=== PATIENT | female | born 1975 | race Two or more races ===

== ENCOUNTER 2020-08-03 19:37 | Emergency (ER) | payer MEDICAID, OTHER ==
[~2020-08-03] VITALS: Ht 170.2 cm; Wt 120.7 kg
--- NOTE | 2020-08-03 19:40 | NUR ---
PT JANAK FROM HOME C/O CHEST PAIN S/P PACEMAKER INSERTION ON 07/17/2020. PT STATES SHE HAS BEEN EXPERIENCING CHEST PAIN SINCE INSERTION, BUT WORSE TODAY. ALSO C/O WEAKNESS, NAUSEA, DIZZINESS. PT AAOX4. RESPIRATIONS EVEN AND UNLABORED. SKIN WARM AND INTACT. VITAL SIGNS STABLE. NO ACUTE DISTRESS NOTED AT THIS TIME. PLACED IN GOWN AND ON CONTINUOUS RN INTENSIVE CARE UNIT AND PULSE OX, WILL CONTINUE TO MONITOR
--- NOTE | 2020-08-03 19:50 | NUR ---
IV INITIATED RAC 18G. LABS DRAWN FROM SITE AND SENT TO LAB. IV INTACT AND PATENT, PLACED ON SALINE LOCK
[2020-08-03 20:02] LABS: BASOPHILS # (AUTO) 0.1 /CMM (0.0-0.2); EOSINOPHILS % (AUTO) 1.4 % (0.0-6.0); HEMATOCRIT 35 % (33-45); HEMOGLOBIN 11.6 g/dL (11.5-14.8); LYMPHOCYTES # (AUTO) 1.9 /CMM (0.8-4.8); LYMPHOCYTES % (AUTO) 23.1 % (20.0-44.0); MEAN CORPUSCULAR HGB CONC 33 g/dl (31.0-36.0); MEAN CORPUSCULAR VOLUME 94 fL (82-100); MONOCYTES # (AUTO) 0.6 /CMM (0.1-1.30); MONOCYTES % (AUTO) 6.9 % (2.0-12.0); NEUTROPHILS # (AUTO) 5.6 /CMM (1.8-8.9); NEUTROPHILS % (AUTO) 67.6 % (43.0-81.0); PLATELET COUNT (AUTO) 315 /CMM (150-450); RED BLOOD CELL COUNT(AUTO) 3.74 MIL/uL (4.0-5.2); WHITE BLOOD COUNT (AUTO) 8.3 K/uL (4.3-11.0)
--- NOTE | 2020-08-03 20:05 | NUR ---
RADIOLOGY AT BEDSIDE FOR CXR
[2020-08-03 20:15] LABS: CALCIUM, SERUM 9.1 mg/dL (8.5-10.1); CREATININE 0.7 mg/dL (0.6-1.3); POTASSIUM 3.4 mmol/L (3.5-5.1)
--- NOTE | 2020-08-03 20:38 | NUR ---
MINOR WATSON SPEAKIG WITH PT'S CRM CAMPAIGN MANAGER, DR. CLEVELAND
[2020-08-03] MEDS ORDERED: HYDROCODONE/APAP 5/325MG TABLET ONE (20:50)
--- NOTE | 2020-08-03 20:53 | NUR ---
PT STATES NORCO "MAKES ME FEEL SICK", REQUESTING FOR NON-NARCOTIC. MINOR LUNSFORD MADE AWARE
[2020-08-03] MEDS ORDERED: ACETAMINOPHEN ES 500 MG TABLET ONE (20:54)
[2020-08-03] MEDS ORDERED: HYDROCODONE/APAP 5/325MG TABLET PO ONE (21:00)
[2020-08-03] MEDS ORDERED: ACETAMINOPHEN 325 MG TABLET PO ONE (21:00)
[2020-08-03 21:20] VITALS: BP 144/85
--- NOTE | 2020-08-03 21:20 | NUR ---
Patient discharged to home in stable condition. Written and verbal after care instructions given. Patient verbalizes understanding of instruction.Pt ambulatory with a steady gait IV removed. Catheter intact and site benign. Pressure and 4x4 applied to site. No bleeding noted.
[2020-08-03] MEDS ORDERED: ACETAMINOPHEN ES 500 MG TABLET PO ONE (21:30)
== END 2020-08-03 21:36 | disposition home or self-care (01) ==
LOC: ER 19:39
DX: G89.18 Other acute postprocedural pain (principal); R07.89 Other chest pain; Z95.0 Presence of cardiac pacemaker
CPT/HCPCS: 36415; 71045-TC; 80048-TC; 84484-TC; 85025-TC

== ENCOUNTER 2021-03-01 20:32 | Emergency (ER) | payer MEDICAID ==
[~2021-03-01] VITALS: Ht 170.2 cm; Wt 95.3 kg
--- NOTE | 2021-03-01 20:46 | NUR ---
PATIENT BIBRA C/O UNWITNESSED GROUND FALL OUT OF BED. PATIENT A/OX1. ON TRACH 3LPM SATTING AT 98%. GTUBE PATENT AND INTACT. HAYS CATH INTACT. R ARM DISCOLORATION NOTED UPON ASSESSMENT. ATTACHED TO DIGITAL PROJECT COORDINATOR AND POX. SAFETY MEASURES INITIATIED. GIVEN BLANKET AND CALL LIGHT WITHIN REACH.
--- NOTE | 2021-03-01 20:50 | NUR ---
VERBAL ORDER 1MG OF ATIVAN IM
[2021-03-01] MEDS ORDERED: LORAZEPAM INJ 2 MG/ML VIAL ONE (20:52)
[2021-03-01] MEDS ORDERED: LORAZEPAM INJ 2 MG/ML VIAL IM ONE (21:00)
--- NOTE | 2021-03-01 21:10 | NUR ---
XRAY AT PATIENTS BEDSIDE
--- NOTE | 2021-03-01 21:33 | NUR ---
COPY MACHINE OPERATOR LEFT PATIENT'S BEDSIDE. XRAY DONE. RESULTS PENDING
--- NOTE | 2021-03-01 21:48 | NUR ---
PATIENT TAKEN TO RADIOLOGY FOR CT
--- NOTE | 2021-03-01 22:30 | NUR ---
GAVE REPORT TO LUZ BOWDEN AT [facility] FOR JOSH
[2021-03-01 22:31] VITALS: BP 150/89
--- NOTE | 2021-03-01 22:36 | NUR ---
SPOKE TO ERMA AT [facility] TO ARRANGE AMBULANCE TRANSPORT. TRIP #[id number]. EXPECTING CALL BACK REGARDING TRANSPORT INFORMATION.
--- NOTE | 2021-03-02 01:01 | NUR ---
SPOKE TO ERMA, STATED HE MADE A RESERVATION AT 10AM "YESTERDAY" ERMA MADEA NEW RESERVATION, TRIP NUMBER [id number] FOR TODAY. WILL CALL US BACK FOR ETA.
--- NOTE | 2021-03-02 01:57 | NUR ---
UPDATED ERMA FROM [facility] TO ARRANGE AMBULANCE TRANSPORT. AWAITING FOR AMBULANCE.
--- NOTE | 2021-03-02 02:03 | NUR ---
HELEN GARCIA [facility] GAVE ETA IS 90 MINUTES FOR AMBULANCE.
--- NOTE | 2021-03-02 03:12 | NUR ---
report given to ambulance team for heriberto. and transferring responsibilities.
--- NOTE | 2021-03-02 03:28 | NUR ---
PT TRANSFERED BACK TO FACILITY.
== END 2021-03-02 03:32 | disposition home or self-care (01) ==
LOC: ER 20:34
DX: S49.81XA Other specified injuries of right shoulder and upper arm, initial encounter (principal); I10 Essential (primary) hypertension; E78.5 Hyperlipidemia, unspecified; Z86.73 Personal history of transient ischemic attack (TIA), and cerebral infarction without residual deficits; Z95.0 Presence of cardiac pacemaker; W17.89XA Other fall from one level to another, initial encounter; Y93.89 Activity, other specified; Y92.89 Other specified places as the place of occurrence of the external cause; Y99.8 Other external cause status
CPT/HCPCS: 70450; 73030; 73070; 73100; 96372; 99284; J2060

== ENCOUNTER 2021-04-14 09:44 | Inpatient (IN) | payer MEDICAID ==
[~2021-04-14] VITALS: Ht 175.3 cm; Wt 92.1 kg
[2021-04-14] MEDS ORDERED: IV NS 0.9% 1,000 ML BAG IV ONE (10:00)
[2021-04-14] MEDS ORDERED: PIPERACILLIN /TAZOBACTAM 3.375 G in IV D5W 50 ML IV ONE (10:00)
[2021-04-14] MEDS ORDERED: ACETAMINOPHEN 650 MG/SUPP.RECT RC ONE ×2 (10:00→10:02)
[2021-04-14] MEDS ORDERED: VANCOMYCIN 1 GM in IV D5W 250 ML IV ONE (10:00)
--- NOTE | 2021-04-14 10:00 | NUR ---
BIBRA78 [facility]N SNF FOR NOTED FEVER AND TACHYCARDIA SINCE LAST NIGHT. FEBRILE MUSIC WRITER. PATIENT A/OX1, NON-VERBAL, PATIENT HOT TO TOUCH, TEMP SHOWS 103.3 RECTALLY. PATIENT PLACED ON THE SHRIMP PEELING MACHINE TENDER, HR RANGES FROM 118-122. DR. BRAGA AT BEDSIDE FOR EVAL.
--- NOTE | 2021-04-14 10:06 | NUR ---
MOVE SHEET SUBMITTED
--- NOTE | 2021-04-14 10:07 | NUR ---
IV LINE ESTABLISHED, BLOOD DRAWN AND SENT TO LAB. HAYS CATHETER FR 16 IN PLACED, URINE SENT TO LAB.
--- NOTE | 2021-04-14 10:08 | NUR ---
CALLED FOR TELE BED.
[2021-04-14] MEDS ORDERED: NA P133E RC (10:17)
[2021-04-14] MEDS ORDERED: BACL10TA GT (10:17)
[2021-04-14] MEDS ORDERED: NUT.237L31 GT (10:17)
[2021-04-14] MEDS ORDERED: FOLI0.4T6 GT (10:17)
[2021-04-14] MEDS ORDERED: LEVE100S GT (10:17)
[2021-04-14] MEDS ORDERED: SACC250C GT (10:17)
[2021-04-14] MEDS ORDERED: LEVA15HF4 IH (10:17)
[2021-04-14] MEDS ORDERED: DOCU50LI GT (10:17)
[2021-04-14] MEDS ORDERED: CYAN-51 GT (10:17)
[2021-04-14] MEDS ORDERED: ACET-2605 GT (10:17)
[2021-04-14] MEDS ORDERED: LORA-259 GT (10:17)
[2021-04-14] MEDS ORDERED: ATOR40TA GT (10:17)
[2021-04-14] MEDS ORDERED: SENN-261 GT (10:17)
[2021-04-14] MEDS ORDERED: VALP250S4 GT (10:17)
[2021-04-14] MEDS ORDERED: CRAN3875 GT (10:17)
[2021-04-14] MEDS ORDERED: ACET-868 GT (10:17)
[2021-04-14] MEDS ORDERED: BISA10SU11 RC (10:17)
[2021-04-14] MEDS ORDERED: ASPI-1169 GT (10:17)
[2021-04-14] MEDS ORDERED: MAGN400O6 GT (10:17)
[2021-04-14] MEDS ORDERED: MAGN400T26 GT (10:17)
[2021-04-14] MEDS ORDERED: METO25TA20 GT (10:17)
[2021-04-14] MEDS ORDERED: AMIN30LI27 GT (10:17)
[2021-04-14] MEDS ORDERED: CHLO473M5 MM (10:17)
[2021-04-14] MEDS ORDERED: FAMO20TA8 GT (10:17)
--- NOTE | 2021-04-14 10:17 | NUR ---
COVID SWAB DONE AND SENT TO LAB
--- NOTE | 2021-04-14 10:23 | NUR ---
PATIENT AWAKE, RESTLESS, NON-VERBAL, NO DISTRESS NOTED, ON TRACHE W/ T-PIECE.
[2021-04-14 10:27] LABS: BASOPHILS % (AUTO) 0.3 % (0.0-2.0); EOSINOPHILS % (AUTO) 1.3 % (0.0-6.0); HEMATOCRIT 26 % (33-45); LYMPHOCYTES # (AUTO) 0.1 K/uL (0.8-4.8); LYMPHOCYTES % (AUTO) 1.3 % (20.0-44.0); MEAN CORPUSCULAR HGB CONC 34 g/dl (31.0-36.0); MEAN CORPUSCULAR VOLUME 92 fL (82-100); MONOCYTES # (AUTO) 0.3 K/uL (0.1-1.30); MONOCYTES % (AUTO) 3.1 % (2.0-12.0); NEUTROPHILS # (AUTO) 10.1 K/uL (1.8-8.9); PLATELET COUNT (AUTO) 211 K/uL (150-450); RED BLOOD CELL COUNT(AUTO) 2.84 MIL/uL (4.0-5.2); WHITE BLOOD COUNT (AUTO) 10.7 K/uL (4.3-11.0)
[2021-04-14 10:49] LABS: ALANINE AMINOTRANSFERASE 32 U/L (12-78); ALBUMIN 1.8 g/dL (3.4-5.0); ALKALINE PHOSPHATASE 90 U/L (46-116); ASPARTATE AMINOTRANSFERASE 42 U/L (15-37); BILIRUBIN,DIRECT 0.2 mg/dL (0.0-0.2); BILIRUBIN,TOTAL 0.6 mg/dL (0.2-1.0); CALCIUM, SERUM 8.9 mg/dL (8.5-10.1); CARBON DIOXIDE 26 mmol/L (21-32); CHLORIDE 99 mmol/L (98-107); CREATININE 1.7 mg/dL (0.6-1.3); GLUCOSE 121 mg/dL (74-106); POTASSIUM 4.1 mmol/L (3.5-5.1); SODIUM SERUM 138 mmol/L (136-145); TOTAL PROTEIN, SERUM 7.3 g/dL (6.4-8.2); UREA NITROGEN, BLOOD 73 mg/dL (7-18)
[2021-04-14 12:15] LABS: BILIRUBIN,URINE NEGATIVE (NEGATIVE); COLOR,URINE YELLOW (YELLOW); LEUKOCYTE ESTERASE ,URINE MODERATE (NEGATIVE); NITRITE, URINE NEGATIVE (NEGATIVE); PROTEIN,URINE 100 mg/dl (NEGATIVE); UGLUCOSE NEGATIVE (NEGATIVE); UROBILINOGEN,URINE 0.2 EU/dL (0.2)
[2021-04-14 12:28] LABS: BACTERIA,URINE Many /HPF (None Seen); SQUAMOUS EPITHELIAL CELL,UR Few /HPF (None Seen)
[2021-04-14 12:29] LABS: TRIPLE PHOSPHATE CRYSTAL,UR Few /HPF (None Seen); URINE AMORPHOUS URATE Moderate /HPF (None Seen)
--- NOTE | 2021-04-14 12:35 | NUR ---
CALLED DR. PIZARRO [phone] TO CALL US BACK.
[2021-04-14] MEDS ORDERED: MAGNESIUM HYDROXIDE 30 ML UDC GT PRN (13:30)
[2021-04-14] MEDS ORDERED: BISACODYL SUPP (10 MG) 10 MG/SUPP.RECT SUPP.RECT RC PRN (13:30)
[2021-04-14] MEDS ORDERED: NA PHOS,M-B/NA PHOS,DI-BA 1 EA ENEMA RC PRN (13:30)
[2021-04-14] MEDS ORDERED: GLUCERNA 1.5 1,000 ML BOTTLE GT SCH (13:30)
[2021-04-14] MEDS ORDERED: BACLOFEN (10 MG) 10 MG TABLET GT PRN (13:30)
--- NOTE | 2021-04-14 15:17 | NUR ---
BED 118-1
--- NOTE | 2021-04-14 15:22 | NUR ---
REPORT GIVEN TO LIAN ESCOBAR.
[2021-04-14 16:00] VITALS: BP 110/55
[2021-04-14] MEDS ORDERED: ONDANSETRON HCL/PF 4 MG/2 ML VIAL IVP PRN (16:00)
--- NOTE | 2021-04-14 16:10 | NUR ---
PATIENT TRANSFERRED TO ROOM 118-1 VIA ACLS PROTOCOL, PT NOTED TO HAVE HEMATURIA ON THE HAYS BAG, ENDORSED TO CHRISTIAN ESCOBAR.
--- NOTE | 2021-04-14 16:40 | NUR ---
ELEVATOR CONSTRUCTOR HELPERWATER PROOFER NOTES PATIENT RECEIVED FROM ER VIA [place]. PATIENT NON-VERBAL RESPONDS TO SLIGHT PAIN. PATIENT STARTED TO GET AGITATED AND STARTED TO PULL T PIECE, AND BEGAN SCREAMING, INFORMED DR PIZARRO, ORDERED SOFT WRIST RESTRAINTS, ONLY APPLIED TO LEFT ARM DUE TO RIGHT ARM BEING CONTRACTED/RIGID. NOTED G-TUBE SITE CLAMPED NO DRAINAGE PRESENT. IV ACCESS INTACT AND PATENT ON RIGHT HAND 20 GAUGE, AND RIGHT FOOT 20 GAUGE. SKIN WARM AND DRY TO TOUCH, NOTED MULTIPLE RASHES, AND SACRUM REDNESS. HAYS CATHETER INSERTED IN ER, NOTED HEMATURIA, INFORMED DR PIZARRO, NO NEW ORDERS MADE. PATIENT PRESENTS WITH NO PAIN OR DISCOMFORT. SAFETY PRECAUTIONS IMPLEMENTED WITH BED LOCKED, BED ALARM ON, BILATERAL SIDE RAILS UP, BED IN THE LOWEST POSITION, AND CALL LIGHT WITHIN EASY REACH. WILL CONTINUE TO MONITOR PATIENT.
[2021-04-14] MEDS ORDERED: HALOPERIDOL LACTATE INJ 5 MG/ML VIAL IM PRN (17:00)
[2021-04-14] MEDS: ACIDOPHILUS/BULGARICUS 1 EACH TAB.CHEW GT SCH (17:31)
[2021-04-14] MEDS: IV NS 0.9% 1,000 ML IV PRN (17:32)
[2021-04-14] MEDS: ZOSYN IVPB 3.375 G in IV D5W 50ml IV SCH ×2 (17:32→23:02)
--- NOTE | 2021-04-14 18:28 | NUR ---
SUGAR DRIER NOTES PATIENT IN BED RESTING, NON-VERBAL. PATIENT T-PIECE IN PLACE 5 LITERS WITH NO SIGNS OF RESPIRATORY DISTRESS. PATIENT ON LUNCH COUNTER MANAGER 125. PATIENT PRESENTS WITH NO SINS OF DISCOMFORT. SOFT WRIST RESTRAINT IN PLACE ON LEFT ARM DUE TO AGITATION AND REMOVING LINES, PULLING ON TUBING. MET ALL OF PATIENT'S NEEDS. G-TUBE FEEDING INTACT. IV ACCESS INTACT AND PATENT CURRENTLY INFUSING IV FLUIDS AT 100ML/HR. HAYS CATHETER IN PLACE HEMATURIA STILL PRESENT. SAFETY PRECAUTIONS IMPLEMENTED WITH BED LOCKED, BED ALARM ON, BILATERAL SIDE RAILS UP, BED IN THE LOWEST POSITION, AND CALL LIGHT WITHIN EASY REACH. WILL ENDORSE PLAN OF CARE TO UPCOMING RN.
--- NOTE | 2021-04-14 20:00 | NUR ---
RETAIL ZONE SPECIALIST NOTE PT IN BED AWAKE. EASILY GET IRRITATED. SCREAMING LOUD AT TIMES. PT ON TPC 5L O2 NO SOB, NO DISTRESS OR DISCOMFORT NOTED. NO S/S PAIN NOTED. ON TELE ST HR 120'S. PT HAS RESTRAINTS ON LT WRIST ONLY. TRYING TO PULL THE TRACH AND TUBINGS. F/C INTACT AND PATENT, PT IS HAVING HEMATURIA. SIDE RAILS UP X 3 AND CALL LIGHT WITHIN REACH. CONTINUE TO MONITOR HER.
[2021-04-14] MEDS ORDERED: ENOXAPARIN SODIUM 40 MG/0.4 ML DISP.SYRIN SQ SCH (21:00)
[2021-04-14] MEDS: SENNOSIDES 8.6 MG TABLET GT SCH (23:01)
[2021-04-14] MEDS: LEVETIRACETAM SOL (5 ML) 100 MG/ML UDC GT SCH (23:01)
[2021-04-14] MEDS: DOCUSATE SODIUM LIQ 100 MG/10 ML UDC GT SCH (23:01)
[2021-04-14] MEDS: ATORVASTATIN 40 MG TABLET GT SCH (23:02)
[2021-04-14] MEDS: FAMOTIDINE (20 MG) 20 MG TABLET GT SCH (23:02)
[2021-04-14] MEDS: METOPROLOL TARTRATE 25 MG TABLET GT SCH (23:02)
[2021-04-14] MEDS: VALPROIC ACID 250 MG/5 ML UDC GT SCH (23:04)
[2021-04-14] MEDS: LORAZEPAM 0.5 MG TABLET PO PRN (23:10)
[2021-04-15] MEDS: ACETAMINOPHEN 325 MG TABLET PO PRN ×2 (00:59→20:16)
--- NOTE | 2021-04-15 04:00 | NUR ---
MECHANICAL SHOVEL OPERATOR NOTE INFORMED DR PIZARRO REGARDING BLOOD CX RESULT GRAM NEGATIVE RODS, NO NEW ORDER GIVEN. ALSO INFORMED THE MD THAT PT IS ON ASPIRIN AND LOVENOX AND STILL WITH HEMATURIA. MD GAVE NEW ORDER TO DC THOSE MEDS. ORDER NOTED AND CARRIED OUT.
[2021-04-15] MEDS: ZOSYN IVPB 3.375 G in IV D5W 50ml IV SCH ×4 (04:11→22:14)
[2021-04-15] MEDS: VALPROIC ACID 250 MG/5 ML UDC GT SCH ×3 (04:13→20:14)
[2021-04-15] MEDS: METOPROLOL TARTRATE 25 MG TABLET GT SCH ×3 (04:13→20:15)
--- NOTE | 2021-04-15 07:14 | NUR ---
BATTERY TESTER AND REPAIRER NOTE PT IN BED AWAKE. NO DISTRESS OR DISCOMFORT NOTED. NO S/S OF PAIN NOTED. NO CHANGE IN CONDITION. NS INFUSING AT 100 ML/HR, NO S/S OF INFILTRATION NOTED. KEPT HER DRY AND CLEAN. LT WRIST RESTRAINT ON. ALL NEEDS ATTENDED. SIDE RAILS UP X 2 AND CALL LIGHT WITHIN REACH. ENDORSE TO DAY SHIFT NURSE FOR CONTINUE TO CARE.
[2021-04-15 07:27] LABS: BASOPHILS % (AUTO) 0.4 % (0.0-2.0); EOSINOPHILS % (AUTO) 1.2 % (0.0-6.0); HEMATOCRIT 23 % (33-45); HEMOGLOBIN 7.9 g/dL (11.5-14.8); LYMPHOCYTES # (AUTO) 0.6 K/uL (0.8-4.8); LYMPHOCYTES % (AUTO) 5.7 % (20.0-44.0); MEAN CORPUSCULAR HGB CONC 34 g/dl (31.0-36.0); MEAN CORPUSCULAR VOLUME 94 fL (82-100); MONOCYTES # (AUTO) 0.6 K/uL (0.1-1.30); MONOCYTES % (AUTO) 5.4 % (2.0-12.0); NEUTROPHILS # (AUTO) 9.5 K/uL (1.8-8.9); NEUTROPHILS % (AUTO) 87.3 % (43.0-81.0); PLATELET COUNT (AUTO) 167 K/uL (150-450); RED BLOOD CELL COUNT(AUTO) 2.48 MIL/uL (4.0-5.2); WHITE BLOOD COUNT (AUTO) 10.9 K/uL (4.3-11.0)
[2021-04-15 07:43] LABS: CALCIUM, SERUM 8.4 mg/dL (8.5-10.1); CREATININE 1.3 mg/dL (0.6-1.3); MAGNESIUM 2.6 mg/dL (1.8-2.4); POTASSIUM 3.3 mmol/L (3.5-5.1)
--- NOTE | 2021-04-15 07:47 | NUR ---
RN OPENING NOTES; RECEIVED PT IN BED IN SUPINE POS. A/OX1, NO SOB NOTED. NO S/S OF PAIN EVIDENT BY FACIAL EXPRESSION. NS INFUSING AT 100 ML/HR, IV ACCESS PATENT W/NO SIGNS OF INFILTRATION. LT WRIST RESTRAINT ON. ALL NEEDS ATTENDED. SIDE RAILS UP X 2 AND CALL LIGHT WITHIN REACH. WILL CONTINUE TO MONITOR.
[2021-04-15] MEDS: LEVETIRACETAM SOL (5 ML) 100 MG/ML UDC GT SCH ×2 (08:17→20:14)
[2021-04-15] MEDS: FOLIC ACID 1 MG TABLET GT SCH (08:17)
[2021-04-15] MEDS ORDERED: ASPIRIN 81 MG TAB.CHEW GT SCH (09:00)
[2021-04-15] MEDS: LORAZEPAM 0.5 MG TABLET PO PRN (09:56)
[2021-04-15] MEDS ORDERED: POTASSIUM CHLORIDE 20 MEQ POWDER PACKET GT SCH (10:00)
[2021-04-15] MEDS: ENOXAPARIN SODIUM 40 MG/0.4 ML DISP.SYRIN SQ SCH (10:30)
--- NOTE | 2021-04-15 10:37 | NUR ---
WOUND CARE CONSULT: REVIEWED CHART, NURSING DOCUMENTATION AND PHOTOS WHICH INDICATE SACRAL SCARRING, DRY SCAB TO RT ANKLE AREA AND SOME RASHES TO BUTTOCKS, PRESENT ON ADMISSION. RECOMMENDATIONS MADE FOR SKIN PROTECTION. DISCUSSED WITH NURSING STAFF. IN AGREEMENT WITH PLAN OF CARE. Addendum: 04/15/21 at 1040 by KIRILL ALTAMIRANO WNDNU ISOFLEX LOW AIRLOSS BED TO BE PLACED WHEN AVAILABLE.
--- NOTE | 2021-04-15 10:37 | NUR ---
RN NOTES; PT HAS HEMATURIA, MD AWARE. LOVENOX NOT GIVEN. WILL CONTINUE TO MONITOR.
[2021-04-15] MEDS: IV NS 0.9% 1,000 ML IV PRN ×2 (10:43→19:11)
[2021-04-15] MEDS ORDERED: Z GUARD REMEDY 2 OZ OINT TP PRN (11:00)
[2021-04-15] MEDS: Z GUARD REMEDY 2 OZ OINT TP SCH (11:00)
--- NOTE | 2021-04-15 11:58 | NUR ---
RN NOTES; Z GUARD NOT GIVEN. F/U WITH PHARMACY X3. MEDICATION HAS NOT BEEN DELIVERED.
--- NOTE | 2021-04-15 16:19 | NUR ---
RN NOTES; PT UNCOOPERATIVE, PT ATTEMPTING TO PULL LIFE SUSTAINING DEVICE. MD MADE AWARE. ATTEMPTED TO EDUCATE AND REDIRECTED PT SEVERAL TIMES BUT NO AVAIL. WILL CONTINUE TO MONITOR AND ENDORSE TO PSYCHIATRIC SOCIAL WORKER RN.
[2021-04-15] MEDS: CLOTRIMAZOLE 1% 15 GM TUBE TP SCH (16:49)
[2021-04-15] MEDS: ACIDOPHILUS/BULGARICUS 1 EACH TAB.CHEW GT SCH (17:01)
--- NOTE | 2021-04-15 18:06 | NUR ---
RN CLOSING NOTES; PT IN BED IN SUPINE POS. A/OX1, NO SOB NOTED. PT REPOSITIONED Q2H. NS INFUSING AT 100 ML/HR, IV ACCESS PATENT W/NO SIGNS OF INFILTRATION, NEW BAG HUNG. LT WRIST RESTRAINT ON, ADN WAS RENEWED AT 4:20P. ALL MEDICATIONS GIVEN AND WELL TOLERATED. ALL NEEDS ATTENDED. SIDE RAILS UP X 2 AND CALL LIGHT WITHIN REACH. . ENDORSE TO WINDSHIELD INSTALLER RN.
[2021-04-15] MEDS: LORAZEPAM INJ 2 MG/ML VIAL IVP PRN (18:17)
--- NOTE | 2021-04-15 19:40 | NUR ---
TELE1 RN NOTES RECEIVED ON BED SCREAMING,BREATHING EASY,NO SOB,ON T-PIECE AT 5L O2,O2 SAT 92%.ON LEFT ARM SOFT RESTRAINTS,RIGHT ARM ON RELEASED STATUS.WITH HAYS CATH IN PLACE DRAINING TEA COLORED URINE.WITH GT FEEDING OF GLUCERNA AT 60ML/HR RATE,IN PROGRESS VIA FEEDING PUMP.HOB ELEVATED FOR ASPIRATION.NO RESIDUAL VOLUME NOTED.WITH SALINE LOCK RIGHT HAND INTACT AND PATENT,LEFT FOOT SALINE LOCK INTACT AND PATENT.WILL CONTINUE TO MONITOR STATUS.
[2021-04-15] MEDS: DOCUSATE SODIUM LIQ 100 MG/10 ML UDC GT SCH (22:00)
[2021-04-15] MEDS: SENNOSIDES 8.6 MG TABLET GT SCH (22:00)
[2021-04-15] MEDS: FAMOTIDINE (20 MG) 20 MG TABLET GT SCH (22:12)
[2021-04-15] MEDS: ATORVASTATIN 40 MG TABLET GT SCH (22:12)
[2021-04-16] VITALS: BP 129/70
[2021-04-16] MEDS: LORAZEPAM INJ 2 MG/ML VIAL IVP PRN (03:22)
--- NOTE | 2021-04-16 03:22 | NUR ---
TELE1 RN NOTES SCREAMING,RESTLESS,ATIVAN 0.5MG IV GIVEN ORDERED.
[2021-04-16 04:00] VITALS: BP 137/72
--- NOTE | 2021-04-16 04:00 | NUR ---
RE ETCHER NOTES MORNING CARE RENDERED,TOLERATED WELL.
[2021-04-16] MEDS: ZOSYN IVPB 3.375 G in IV D5W 50ml IV SCH ×2 (04:08→11:09)
[2021-04-16] MEDS: VALPROIC ACID 250 MG/5 ML UDC GT SCH ×3 (04:11→20:13)
[2021-04-16] MEDS: METOPROLOL TARTRATE 25 MG TABLET GT SCH ×3 (04:18→20:14)
--- NOTE | 2021-04-16 06:29 | NUR ---
SWIMMING COACH OR INSTRUCTOR NOTES CALM AND QUIET THIS TIME,GT FEEDING HOLD AT 0500,WILL RESUME AT 0900,NO RESIDUAL VOLUME NOTED.REPOSITIONED PER PROTOCOL.SOFT RESTRAINTS IN USED ON LEFT WRIST,WITH GOOD BLOOD CIRCULATION NOTED.IN NO ACUTE DISTRESS.WILL ENDORSE TO DAY NURSE FOR JOSH.
[2021-04-16 07:27] LABS: BASOPHILS % (AUTO) 0.3 % (0.0-2.0); EOSINOPHILS % (AUTO) 1.1 % (0.0-6.0); HEMATOCRIT 23 % (33-45); HEMOGLOBIN 7.8 g/dL (11.5-14.8); LYMPHOCYTES # (AUTO) 0.9 K/uL (0.8-4.8); LYMPHOCYTES % (AUTO) 7.1 % (20.0-44.0); MEAN CORPUSCULAR HGB CONC 33 g/dl (31.0-36.0); MEAN CORPUSCULAR VOLUME 95 fL (82-100); MONOCYTES % (AUTO) 8.3 % (2.0-12.0); NEUTROPHILS % (AUTO) 83.2 % (43.0-81.0); PLATELET COUNT (AUTO) 200 K/uL (150-450); RED BLOOD CELL COUNT(AUTO) 2.48 MIL/uL (4.0-5.2)
--- NOTE | 2021-04-16 07:59 | NUR ---
RN NOTES RECEIVED PATIENT IN BED SUPINE POSITION - MOANING AND SCREAMING TRYING TO TOSS AND TURN, HELPED TO REPOSITION AND PROVIDE COMFORT, SOFT RESTRAINTS INTACT ON LEFT WRIST, BLOOD CIRCULATION INTACT AND ADEQUATE < 3 SECONDS ON LEFT INDEX FINGER NOTED, NO SOB, NO ACUTE DISTRESS. WILL CONTINUE TO ASSESS AND MEET NEEDS IN A TIMELY MANNER, ALL SAFETY PRECAUTIONS IN PLACE, BED LOW TO FLOOR, CALL LIGHT IN REACH, BRAKES ON BED WHEELS APPLIED AND LOCKED.
[2021-04-16 08:03] LABS: CALCIUM, SERUM 8.5 mg/dL (8.5-10.1); CREATININE 1.1 mg/dL (0.6-1.3); MAGNESIUM 2.4 mg/dL (1.8-2.4)
[2021-04-16] MEDS: Z GUARD REMEDY 2 OZ OINT TP SCH (08:04)
[2021-04-16] MEDS: FOLIC ACID 1 MG TABLET GT SCH (08:05)
[2021-04-16] MEDS: CLOTRIMAZOLE 1% 15 GM TUBE TP SCH ×2 (08:05→17:41)
[2021-04-16] MEDS: LEVETIRACETAM SOL (5 ML) 100 MG/ML UDC GT SCH ×2 (08:05→20:13)
[2021-04-16] MEDS: ENOXAPARIN SODIUM 40 MG/0.4 ML DISP.SYRIN SQ SCH (08:21)
[2021-04-16] MEDS ORDERED: MEROPENEM 500 MG in IV NS 0.9% 50 ML IV SCH (13:00)
[2021-04-16] MEDS: MEROPENEM 1 G in IV NS 0.9% 100 ML IV SCH ×2 (13:53→20:14)
[2021-04-16] MEDS: ACIDOPHILUS/BULGARICUS 1 EACH TAB.CHEW GT SCH (17:42)
[2021-04-16 20:00] VITALS: BP 134/71
--- NOTE | 2021-04-16 20:00 | NUR ---
BUSINESS PROCESS ENGINEER NOTE PT IN BED AWAKE.NON VERBAL SCREAMS AT TIMES ,V/S STABLE FEBRILE 102 ,TYLENOL GIVEN ORDERED COOLING MEASURES APPLIED .ALL DUE MEDS GIVEN ORDERED ,NO ASE NOTED . NO SOB NO DISTRESS NOTED . NO S/S OF PAIN NOTED. IVF OF D5W INFUSING AT 100 ML/HR, NO S/S OF INFILTRATION NOTED. KEPT HER DRY AND CLEAN. BILATERAL SOFT WRIST RESTRAINT TO PREVENT FROM PULLING INVASIVE TUBING .WITH HAYS CATHETER INTACT AND PATENT DRAINING WITH DEVANTE YELLOW URINE OUTPUT. NO HEMATURIA NOTED . ALL NEEDS ATTENDED TOO SIDE RAILS UP X 2 AND CALL LIGHT WITHIN REACH. WILL CONTINUE TO MONITOR PTS.
[2021-04-16] MEDS: ACETAMINOPHEN 325 MG TABLET PO PRN (20:16)
[2021-04-16] MEDS: IV D5W 1,000 ML IV PRN (20:29)
[2021-04-16] MEDS: GLUCERNA 1.2 1,000 ML BOTTLE GT PRN (20:37)
[2021-04-16] MEDS: ATORVASTATIN 40 MG TABLET GT SCH (21:04)
[2021-04-16] MEDS: DOCUSATE SODIUM LIQ 100 MG/10 ML UDC GT SCH (21:04)
[2021-04-16] MEDS: SENNOSIDES 8.6 MG TABLET GT SCH (21:05)
[2021-04-16] MEDS: FAMOTIDINE (20 MG) 20 MG TABLET GT SCH (21:05)
[2021-04-16 22:00] VITALS: BP 129/72
[2021-04-17] VITALS: BP 129/53
[2021-04-17] MEDS: LORAZEPAM INJ 2 MG/ML VIAL IVP PRN (03:25)
[2021-04-17] MEDS: GLUCERNA 1.2 1,000 ML BOTTLE GT PRN (03:48)
[2021-04-17 04:00] VITALS: BP 131/61
[2021-04-17] MEDS: VALPROIC ACID 250 MG/5 ML UDC GT SCH ×3 (04:04→20:05)
[2021-04-17] MEDS: MEROPENEM 1 G in IV NS 0.9% 100 ML IV SCH ×3 (04:05→20:05)
[2021-04-17] MEDS: METOPROLOL TARTRATE 25 MG TABLET GT SCH ×3 (04:11→20:06)
--- NOTE | 2021-04-17 05:50 | NUR ---
RN NOTE PATIENT AWAKE IN BED, NONVERBAL REMAINS ON TPIECE AT 5 LITERS ON IV ATB NO ASE NOTED, IVF OF D5W AT 100CC/HR INFUSING WELL. BREATHING EVEN AND UNLABORED, ALL NEEDS ATTENDED TOO , WILL ENDORSED TO RN DAY SHIFT FOR CONTINUITY OF CARE.
[2021-04-17 08:00] VITALS: BP 127/67
[2021-04-17 08:01] LABS: CALCIUM, SERUM 8.2 mg/dL (8.5-10.1); MAGNESIUM 2.4 mg/dL (1.8-2.4); POTASSIUM 4.4 mmol/L (3.5-5.1)
[2021-04-17] MEDS: LEVETIRACETAM SOL (5 ML) 100 MG/ML UDC GT SCH ×2 (09:10→20:05)
[2021-04-17] MEDS: FOLIC ACID 1 MG TABLET GT SCH (09:10)
[2021-04-17] MEDS: Z GUARD REMEDY 2 OZ OINT TP SCH (09:20)
[2021-04-17] MEDS: CLOTRIMAZOLE 1% 15 GM TUBE TP SCH ×2 (09:22→17:19)
[2021-04-17] MEDS: IV D5W 1,000 ML IV PRN (09:40)
[2021-04-17 09:53] LABS: BASOPHILS % (AUTO) 0.3 % (0.0-2.0); HEMATOCRIT 28 % (33-45); HEMOGLOBIN 9.1 g/dL (11.5-14.8); LYMPHOCYTES # (AUTO) 0.9 K/uL (0.8-4.8); LYMPHOCYTES % (AUTO) 8.4 % (20.0-44.0); MEAN CORPUSCULAR HGB CONC 33 g/dl (31.0-36.0); MEAN CORPUSCULAR VOLUME 95 fL (82-100); MONOCYTES # (AUTO) 0.6 K/uL (0.1-1.30); MONOCYTES % (AUTO) 4.9 % (2.0-12.0); NEUTROPHILS # (AUTO) 9.5 K/uL (1.8-8.9); NEUTROPHILS % (AUTO) 83.4 % (43.0-81.0); PLATELET COUNT (AUTO) 218 K/uL (150-450); RED BLOOD CELL COUNT(AUTO) 2.94 MIL/uL (4.0-5.2); WHITE BLOOD COUNT (AUTO) 11.4 K/uL (4.3-11.0)
[2021-04-17] MEDS: ENOXAPARIN SODIUM 40 MG/0.4 ML DISP.SYRIN SQ SCH (10:19)
[2021-04-17 11:33] LABS: BAND % (MANUAL) 1 % (0.0-5.0); EOSINOPHILS % (MANUAL) 4 % (0-4); LYMPHOCYTES % (MANUAL) 7 % (16-48); MONOCYTES % (MANUAL) 3 % (0-11.0); NEUTROPHILS % (MANUAL) 85 (42-76)
[2021-04-17 12:00] VITALS: BP 131/73
--- NOTE | 2021-04-17 12:15 | NUR ---
tele lead based paint technician: md visit seen and examined by dr. murrell and informed me that he will discharge the pt back to snf today. cn and case management aware. abilee (daughter) notified and made aware of dc back to snf, spoke to her over the phone.
[2021-04-17] MEDS ORDERED: MERO1VIA23 IV (12:17)
--- NOTE | 2021-04-17 14:00 | NUR ---
tele aquaculture farm manager: notes received new order from dr. murrell to discharge pt back to snf. case management aware and will make arrangement. midline ordered due to antibiotic for 10 days and rn ferry terminal supervisor made aware. order for midline put in by dioni.
--- NOTE | 2021-04-17 14:15 | NUR ---
tele tape coater: notes picc line nurse here and inserted midline to left upper arm, gauge #18, consuelo. well.
--- NOTE | 2021-04-17 14:24 | NUR ---
tele chemical economist: notes f/u made to bailee (daughter) and informed her that pt is being picked up at 1700, spoke to her over the phone.
--- NOTE | 2021-04-17 15:19 | NUR ---
tele supervisor quilting: notes right hand and right foot iv removed with tip intact.
--- NOTE | 2021-04-17 15:33 | NUR ---
tele disability case manager: notes report given to michelle (rn clinic supervisor) at [facility] for continuity of care.
[2021-04-17] MEDS: ACETAMINOPHEN 325 MG TABLET PO PRN (15:54)
--- NOTE | 2021-04-17 15:54 | NUR ---
tele outside installer apprentice: notes noted with temp of 101.4 (a), re check temp (r) at 102.4. dr. murrell notified and made aware with order to cancel the discharge today. cooling measures provided. tylenol 650mg given via g-tube. bailee (daughter) notified and made aware that pt is staying here due to having a temperature. michelle from [facility] notified and made aware.
[2021-04-17 16:00] VITALS: BP 141/82
--- NOTE | 2021-04-17 16:50 | NUR ---
tele coffee grinder: notes moved to room 106-1 per daughter's request.
[2021-04-17] MEDS: ACIDOPHILUS/BULGARICUS 1 EACH TAB.CHEW GT SCH (17:18)
--- NOTE | 2021-04-17 18:00 | NUR ---
tele hoe runner: notes incontinent of bowel rendered. re check temp 101. 0. remains on cooling measures. needs attended. will continue to monitor.
[2021-04-17 20:00] VITALS: BP 157/75
--- NOTE | 2021-04-17 20:00 | NUR ---
DECORATING MACHINE TENDER NOTE PT IN BED AWAKE.NON VERBAL SCREAMS AT TIMES ,V/S STABLE AFEBRILE .ALL DUE MEDS GIVEN ORDERED ,NO ASE NOTED . NO SOB NO DISTRESS NOTED . NO S/S OF PAIN NOTED. IVF OF D5W INFUSING AT 100 ML/HR,WITH LEFT UA ML INTACT AND PATENT , NO S/S OF INFILTRATION NOTED.TURNED AND REPOSITION , GT FEEDING GLUCERNA AT 60CC/HR TOLERATING WELL NO RESIDUAL NOTED .HOB ELEVATED AT ALL TIMES. KEPT HER DRY AND CLEAN. BILATERAL SOFT WRIST RESTRAINT TO PREVENT FROM PULLING INVASIVE TUBING .WITH HAYS CATHETER INTACT AND PATENT DRAINING WITH DEVANTE YELLOW URINE OUTPUT. NO HEMATURIA NOTED . ALL NEEDS ATTENDED TOO SIDE RAILS UP X 2 AND CALL LIGHT WITHIN REACH. WILL CONTINUE TO MONITOR PTS.SPOKE TO DAUGHTER CAROL UPDATED WITH PTS CURRENT CONDITION.
[2021-04-17] MEDS: DOCUSATE SODIUM LIQ 100 MG/10 ML UDC GT SCH (21:22)
[2021-04-17] MEDS: FAMOTIDINE (20 MG) 20 MG TABLET GT SCH (21:24)
[2021-04-17] MEDS: SENNOSIDES 8.6 MG TABLET GT SCH (21:24)
[2021-04-17] MEDS: ATORVASTATIN 40 MG TABLET GT SCH (21:24)
[2021-04-18] VITALS: BP 156/83
[2021-04-18] MEDS: IV D5W 1,000 ML IV PRN ×2 (01:37→12:16)
--- NOTE | 2021-04-18 03:52 | NUR ---
telephone service adviser notes temp of 101.1 cooling measures applied tylenol given as ordered , v/s stable , turned and reposition , rt at bedside put pts on cool aerosol 4liters 35%fio2 well tolerated by pts.will continue to monitor pts.
[2021-04-18 04:00] VITALS: BP 154/83
[2021-04-18] MEDS: ACETAMINOPHEN 650 MG/20.3 ML UDC GT PRN ×2 (04:32→17:27)
[2021-04-18] MEDS: VALPROIC ACID 250 MG/5 ML UDC GT SCH ×3 (04:32→20:19)
[2021-04-18] MEDS: MEROPENEM 1 G in IV NS 0.9% 100 ML IV SCH ×3 (04:33→20:21)
[2021-04-18] MEDS: METOPROLOL TARTRATE 25 MG TABLET GT SCH ×3 (04:33→20:20)
--- NOTE | 2021-04-18 05:00 | NUR ---
DIRECTOR INDEX NOTES GT FEEDING OF AT 5AM PLS ON THE FEEDING AT 9AM.
--- NOTE | 2021-04-18 06:37 | NUR ---
RN NOTE PATIENT AWAKE IN BED, NONVERBAL REMAINS ON TPIECE AT 4 LITERS ON COOL AEROSOL. IV ATB NO ASE NOTED, IVF OF D5W AT 100CC/HR INFUSING WELL. BREATHING EVEN AND UNLABORED, ALL NEEDS ATTENDED TOO , WILL ENDORSED TO RN DAY SHIFT FOR CONTINUITY OF CARE.
--- NOTE | 2021-04-18 06:39 | NUR ---
MOLD CLOSER NOTES LATEST AT 6AM 99.8 WILL CONTINIUE TO MONITOR PTS.
--- NOTE | 2021-04-18 07:15 | NUR ---
RN OPENING NOTE Received patient asleep in bed appears calm and relaxed no signs of distress. On a T-piece 4L cool aerosol tolerating well. Patient is ST 102bpm. Mcfarland catheter in place. Soft restraints on bilateral wrist no signs of skin integrity problem. Patient is on Glucerna 1.2 @ 60ml/hr on at 9am and off at 5am. WENDY Midline running D5W @ 100cc/hr. Safety measures maintained call light within reach will cont to monitor.
[2021-04-18 08:00] VITALS: BP 155/71
[2021-04-18] MEDS: LEVETIRACETAM SOL (5 ML) 100 MG/ML UDC GT SCH ×2 (08:39→20:19)
[2021-04-18] MEDS: ENOXAPARIN SODIUM 40 MG/0.4 ML DISP.SYRIN SQ SCH (08:40)
[2021-04-18] MEDS: FOLIC ACID 1 MG TABLET GT SCH (08:40)
[2021-04-18] MEDS: Z GUARD REMEDY 2 OZ OINT TP SCH (08:41)
[2021-04-18] MEDS: CLOTRIMAZOLE 1% 15 GM TUBE TP SCH ×2 (08:41→16:14)
[2021-04-18] MEDS: GLUCERNA 1.2 1,000 ML BOTTLE GT PRN (10:38)
--- NOTE | 2021-04-18 11:54 | NUR ---
SEEN BY DR. PIZARRO
[2021-04-18 12:00] VITALS: BP 158/71
[2021-04-18 16:00] VITALS: BP 156/80
[2021-04-18] MEDS: ACIDOPHILUS/BULGARICUS 1 EACH TAB.CHEW GT SCH (17:24)
--- NOTE | 2021-04-18 18:36 | NUR ---
RN CLOSING NOTE Patient in bed appears calm and relaxed. On cool aerosol tolerating well. Tele reading ST 100s. On bilateral soft wrist restraints to be renewed on 04/19/21 at 1500. GTF running at 60cc/hr tolerating well. Tylenol given for fever at 1600. All due meds given. Kept patient clean and dry. Turned and repositioned q2h. Will endorse to green building engineer nurse for heriberto.
[2021-04-18 20:00] VITALS: BP 156/80
--- NOTE | 2021-04-18 20:00 | NUR ---
WAREHOUSING TECHNICIAN NOTE PT IN BED AWAKE.NON VERBAL SCREAMS AT TIMES ,V/S STABLE ,FEBRILE temp 100.1 COOLING MEASURES APPLIED TYLENOL 500 MG GIVEN ORDERED .ALL DUE MEDS GIVEN ORDERED ,NO ASE NOTED . NO SOB NO DISTRESS NOTED . NO S/S OF PAIN NOTED. IVF OF D5W INFUSING AT 100 ML/HR,WITH LEFT UA ML INTACT AND PATENT , NO S/S OF INFILTRATION NOTED.TURNED AND REPOSITION , GT FEEDING GLUCERNA AT 60CC/HR TOLERATING WELL NO RESIDUAL NOTED .HOB ELEVATED AT ALL TIMES. KEPT HER DRY AND CLEAN. BILATERAL SOFT WRIST RESTRAINT TO PREVENT FROM PULLING INVASIVE TUBING .WITH HAYS CATHETER INTACT AND PATENT DRAINING WITH DEVANTE YELLOW URINE OUTPUT. NO HEMATURIA NOTED . ALL NEEDS ATTENDED TOO SIDE RAILS UP X 2 AND CALL LIGHT WITHIN REACH. WILL CONTINUE TO MONITOR PTS.SPOKE TO DAUGHTER CAROL UPDATED WITH PTS CURRENT CONDITION.
[2021-04-18] MEDS: ACETAMINOPHEN 650 MG/20.3 ML UDC GT SCH (20:23)
[2021-04-18] MEDS: FAMOTIDINE (20 MG) 20 MG TABLET GT SCH (21:38)
[2021-04-18] MEDS: SENNOSIDES 8.6 MG TABLET GT SCH (21:38)
[2021-04-18] MEDS: ATORVASTATIN 40 MG TABLET GT SCH (21:39)
[2021-04-18] MEDS: DOCUSATE SODIUM LIQ 100 MG/10 ML UDC GT SCH (21:48)
[2021-04-19] VITALS: BP 138/74
[2021-04-19] MEDS: IV D5W 1,000 ML IV PRN (00:30)
[2021-04-19 04:00] VITALS: BP 141/75
[2021-04-19] MEDS: MEROPENEM 1 G in IV NS 0.9% 100 ML IV SCH ×3 (04:16→21:18)
[2021-04-19] MEDS: VALPROIC ACID 250 MG/5 ML UDC GT SCH ×3 (04:16→21:16)
[2021-04-19] MEDS: METOPROLOL TARTRATE 25 MG TABLET GT SCH ×3 (04:26→21:18)
--- NOTE | 2021-04-19 06:05 | NUR ---
RN NOTE PATIENT AWAKE IN BED, NONVERBAL REMAINS ON TPIECE AT 5LITERS ON COOL AEROSOL. IV ATB NO ASE NOTED, IVF OF D5W AT 100CC/HR INFUSING WELL. BREATHING EVEN AND UNLABORED, ALL NEEDS ATTENDED TOO , WILL ENDORSED TO RN DAY SHIFT FOR CONTINUITY OF CARE.
[2021-04-19 07:17] LABS: BASOPHILS # (AUTO) 0.1 K/uL (0.0-0.2); BASOPHILS % (AUTO) 0.6 % (0.0-2.0); EOSINOPHILS % (AUTO) 2.5 % (0.0-6.0); HEMATOCRIT 26 % (33-45); HEMOGLOBIN 8.5 g/dL (11.5-14.8); LYMPHOCYTES # (AUTO) 1.4 K/uL (0.8-4.8); MEAN CORPUSCULAR HGB CONC 33 g/dl (31.0-36.0); MEAN CORPUSCULAR VOLUME 94 fL (82-100); MONOCYTES # (AUTO) 0.6 K/uL (0.1-1.30); MONOCYTES % (AUTO) 3.1 % (2.0-12.0); NEUTROPHILS # (AUTO) 16.9 K/uL (1.8-8.9); NEUTROPHILS % (AUTO) 86.8 % (43.0-81.0); PLATELET COUNT (AUTO) 229 K/uL (150-450); RED BLOOD CELL COUNT(AUTO) 2.78 MIL/uL (4.0-5.2); WHITE BLOOD COUNT (AUTO) 19.5 K/uL (4.3-11.0)
--- NOTE | 2021-04-19 07:30 | NUR ---
RN OPENING NOTE NONVERBAL PT SEMIFOWLERS IN BED, ON T-PIECE 5L, NO S/S OF SOB OR RESP DISTRESS. PT TEMP OF 99.5 F, TYLENOL SCHEDULED FOR 0900, COOLING MEASURES IN PLACE. PT SR-ST 90s-100s ON TELE MONITOR. PT WENDY MIDLINE CURRENTLY INFUSING D5W @ 100 ML/HR, FLUSHED AND INTACT. PT GTUBE AUSCULTATED FOR POSITIVE PLACEMENT, NO RESIDUALS NOTED, ON GLUCERNA 1.2 @ 60 ML/HR, CURRENTLY ON HOLD UNTIL 0900, ON FOR 20HR. PT BILAT SOFT RESTRAINTS IN PLACE D/T PULLING AT LINES AND TUBING, FOR PT SAFETY, CMS INTACT BILATERALLY. PT HAYS CATH DRAINING CLEAR DEVANTE URINE TO GRAVITY. PT SACRAL REDNESS COVERED IN MEPILEX. ALL PT SAFETY PRECAUTIONS IN PLACE, WILL CONT TO MONITOR CLOSELY
[2021-04-19 08:00] VITALS: BP 155/62
[2021-04-19 08:01] LABS: CALCIUM, SERUM 8.9 mg/dL (8.5-10.1); CREATININE 0.9 mg/dL (0.6-1.3); POTASSIUM 3.7 mmol/L (3.5-5.1)
[2021-04-19] MEDS: ACETAMINOPHEN 650 MG/20.3 ML UDC GT SCH ×2 (09:24→17:21)
[2021-04-19] MEDS: FOLIC ACID 1 MG TABLET GT SCH (09:24)
[2021-04-19] MEDS: LEVETIRACETAM SOL (5 ML) 100 MG/ML UDC GT SCH ×2 (09:24→21:17)
[2021-04-19] MEDS: Z GUARD REMEDY 2 OZ OINT TP SCH (09:25)
[2021-04-19] MEDS: CLOTRIMAZOLE 1% 15 GM TUBE TP SCH ×2 (09:25→17:21)
[2021-04-19] MEDS: ENOXAPARIN SODIUM 40 MG/0.4 ML DISP.SYRIN SQ SCH (09:26)
[2021-04-19 12:00] VITALS: BP 115/70
[2021-04-19 16:00] VITALS: BP 137/90
[2021-04-19] MEDS: ACIDOPHILUS/BULGARICUS 1 EACH TAB.CHEW GT SCH (17:21)
[2021-04-19] MEDS: LORAZEPAM INJ 2 MG/ML VIAL IVP PRN ×2 (17:37→23:44)
--- NOTE | 2021-04-19 19:13 | NUR ---
RN CLOSING NOTE NO CHANGES TO PT DURING SHIFT,PT STABLE, PT ON T-PIECE 5L, TOLERATING WELL, NO S/S OR SOB OR RESP DISTRESS. ALL PT SAFETY PRECAUTIONS IN PLACE, TYLENOL GIVEN PROPHYLACTICALLY FOR 99.3 F. JOSH ENDORSED TO ONCOMING RN
[2021-04-19 20:45] VITALS: BP 111/63
--- NOTE | 2021-04-19 20:45 | NUR ---
UTILITY LINEMAN NOTE PT TRANSFERRED TO 3RD FLOOR ROOM 319 PER ACLS PROTOCOL. PT WAS IN STABLE CONDITION. RT ALSO AT BED SIDE.
[2021-04-19] MEDS: DOCUSATE SODIUM LIQ 100 MG/10 ML UDC GT SCH (21:16)
[2021-04-19] MEDS: SENNOSIDES 8.6 MG TABLET GT SCH (21:17)
[2021-04-19] MEDS: FAMOTIDINE (20 MG) 20 MG TABLET GT SCH (21:17)
[2021-04-19] MEDS: ATORVASTATIN 40 MG TABLET GT SCH (21:17)
[2021-04-20] VITALS: BP 135/60
[2021-04-20] MEDS: ACETAMINOPHEN 650 MG/20.3 ML UDC GT PRN (01:11)
[2021-04-20 04:00] VITALS: BP 141/77
[2021-04-20] MEDS: MEROPENEM 1 G in IV NS 0.9% 100 ML IV SCH ×2 (05:32→13:44)
[2021-04-20] MEDS: METOPROLOL TARTRATE 25 MG TABLET GT SCH ×2 (05:33→13:44)
[2021-04-20] MEDS: VALPROIC ACID 250 MG/5 ML UDC GT SCH ×2 (05:34→13:44)
--- NOTE | 2021-04-20 07:11 | NUR ---
community relations officer Closing Notes Patient was last seen awake in bed resting. Patient's nonverbal. Patient's on a T-piece having no respiratory distress. Patient's connected to a tele monitor with no cardiac distress noted. Patient has a left upper arm midline gauge #18, which is intact, patent, and flushing well. Patient's in no acute distress at this time. Safety measures in place: Bed locked, bed alarm on, side rails up x3, and call light within reach of the patient. Will endorse care to the day shift nurse.
--- NOTE | 2021-04-20 07:57 | NUR ---
TELE/RN OPENING NOTE RECEIVED PATIENT NONVERBAL, SEMIFOWLERS IN BED, ON T-PIECE 5L, NO S/S OF SOB OR RESP DISTRESS. PT SR-ST 90s-100s ON TELE MONITOR. PT WENDY MIDLINE INTACT AND PATENT. PT GTUBE AUSCULTATED FOR POSITIVE PLACEMENT, NO RESIDUALS NOTED, ON GLUCERNA 1.2 @ 60 ML/HR. PT BILAT SOFT RESTRAINTS IN PLACE D/T PULLING AT LINES AND TUBING, FOR PT SAFETY, CMS INTACT BILATERALLY. PT HAYS CATH DRAINING CLEAR LIGHT YELLOW URINE TO GRAVITY. PT SACRAL REDNESS COVERED IN MEPILEX. ALL PT SAFETY PRECAUTIONS IN PLACE, WILL CONT TO MONITOR CLOSELY
--- NOTE | 2021-04-20 08:14 | NUR ---
RT Pt received trached on cool aerosol with adequate SpO2. BVM and spare trach is by bedside. No SOB or respiratory distress noted. Addendum: 04/20/21 at 1828 by DAYLIN ACOSTA RT Amended: Links added.
[2021-04-20 08:34] VITALS: BP 124/59
[2021-04-20] MEDS: LEVETIRACETAM SOL (5 ML) 100 MG/ML UDC GT SCH (09:04)
[2021-04-20] MEDS: FOLIC ACID 1 MG TABLET GT SCH (09:04)
[2021-04-20] MEDS: ACETAMINOPHEN 650 MG/20.3 ML UDC GT SCH (09:04)
[2021-04-20] MEDS: CLOTRIMAZOLE 1% 15 GM TUBE TP SCH (09:05)
[2021-04-20] MEDS: Z GUARD REMEDY 2 OZ OINT TP SCH (09:05)
[2021-04-20] MEDS: ENOXAPARIN SODIUM 40 MG/0.4 ML DISP.SYRIN SQ SCH (09:06)
[2021-04-20] MEDS: LORAZEPAM INJ 2 MG/ML VIAL IVP PRN (13:50)
[2021-04-20 16:00] VITALS: BP 123/53
[2021-04-20 16:07] LABS: BASOPHILS # (AUTO) 0.1 K/uL (0.0-0.2); BASOPHILS % (AUTO) 0.8 % (0.0-2.0); EOSINOPHILS % (AUTO) 2.2 % (0.0-6.0); HEMATOCRIT 25 % (33-45); HEMOGLOBIN 8.4 g/dL (11.5-14.8); LYMPHOCYTES # (AUTO) 1.4 K/uL (0.8-4.8); LYMPHOCYTES % (AUTO) 10.8 % (20.0-44.0); MEAN CORPUSCULAR HGB CONC 33 g/dl (31.0-36.0); MEAN CORPUSCULAR VOLUME 93 fL (82-100); MONOCYTES # (AUTO) 0.6 K/uL (0.1-1.30); MONOCYTES % (AUTO) 4.3 % (2.0-12.0); NEUTROPHILS # (AUTO) 10.9 K/uL (1.8-8.9); NEUTROPHILS % (AUTO) 81.9 % (43.0-81.0); PLATELET COUNT (AUTO) 309 K/uL (150-450); RED BLOOD CELL COUNT(AUTO) 2.73 MIL/uL (4.0-5.2); WHITE BLOOD COUNT (AUTO) 13.3 K/uL (4.3-11.0)
[2021-04-20 16:55] LABS: LYMPHOCYTES % (MANUAL) 13 % (16-48); MONOCYTES % (MANUAL) 2 % (0-11.0); NEUTROPHILS % (MANUAL) 84 (42-76); REACTIVE LYMPHOCYTES 1 % (0-0)
== END 2021-04-20 18:30 | DRG 720 ==
LOC: ER 09:48 → TELE1 15:39 → TELE 04-19 20:42 → MED 04-20 14:46
PROVIDERS: ADMIT Legal Medicine; ATTEND Legal Medicine
PROC: 02HV33Z Insertion of Infusion Device into Superior Vena Cava, Percutaneous Approach (ICD-10-PCS; principal; 2021-04-17)
PROC: B548ZZA Ultrasonography of Superior Vena Cava, Guidance (ICD-10-PCS; 2021-04-17)
DX: A41.51 Sepsis due to Escherichia coli [E. coli] (principal); N17.0 Acute kidney failure with tubular necrosis; G82.50 Quadriplegia, unspecified; G93.41 Metabolic encephalopathy; J96.10 Chronic respiratory failure, unspecified whether with hypoxia or hypercapnia; N39.0 Urinary tract infection, site not specified; Z20.822 Contact with and (suspected) exposure to COVID-19; E78.5 Hyperlipidemia, unspecified; F41.9 Anxiety disorder, unspecified; Z86.74 Personal history of sudden cardiac arrest; Z95.0 Presence of cardiac pacemaker; Z79.51 Long term (current) use of inhaled steroids; Z79.82 Long term (current) use of aspirin; Z79.899 Other long term (current) drug therapy; R13.10 Dysphagia, unspecified; K21.9 Gastro-esophageal reflux disease without esophagitis; Z86.73 Personal history of transient ischemic attack (TIA), and cerebral infarction without residual deficits; F09 Unspecified mental disorder due to known physiological condition; I10 Essential (primary) hypertension; I25.10 Atherosclerotic heart disease of native coronary artery without angina pectoris; Z93.0 Tracheostomy status; Z93.1 Gastrostomy status; G93.1 Anoxic brain damage, not elsewhere classified; G40.909 Epilepsy, unspecified, not intractable, without status epilepticus; E87.0 Hyperosmolality and hypernatremia; R65.20 Severe sepsis without septic shock; Z16.12 Extended spectrum beta lactamase (ESBL) resistance
CPT/HCPCS: 31720; 36410; 36415; 71045-TC; 80048-TC; 80076-TC; 81001; 83605-TC; 83735-TC; 84484-TC; 85025-TC; 85730-TC; 87040-TC; 87081-TC; 87086-TC; 87186-TC; 94640-TC; 94799-TC; 99082-TC; A4623; A6403; G0378; J1630; J1650; J1953; J2060; J2185; J2543; J3370; J7030; J7040; J7042; J7050; J7060; J7070; U0003

== ENCOUNTER 2022-09-28 11:06 | Inpatient (IN) | payer MEDICAID ==
[~2022-09-28] VITALS: Ht 167.6 cm; Wt 75.7 kg
[~2022-09-28 11:06] MED LIST: ACET-2605 GT; ACET-868 GT; AMIN30LI27 GT; ASPI-1169 GT; ATOR40TA GT; BACL10TA GT; BISA10SU11 RC; CHLO473M5 MM; CRAN3875 GT; CYAN-51 GT; DOCU50LI GT; FAMO20TA8 GT; FOLI0.4T6 GT; LEVA15HF4 IH; LEVE100S GT; LORA-259 GT; MAGN400O6 GT; MAGN400T26 GT; MERO1VIA23 IV; METO25TA20 GT; NA P133E RC; NUT.237L31 GT; SACC250C GT; SENN-261 GT; VALP250S4 GT
[2022-09-28] MEDS ORDERED: ACETAMINOPHEN ES 500 MG TABLET GT ONE (11:30)
--- NOTE | 2022-09-28 11:30 | NUR ---
established iv line at right hand 20 g , infusing well
--- NOTE | 2022-09-28 11:35 | NUR ---
blood sample obtained sent to lab
[2022-09-28] MEDS ORDERED: ACETAMINOPHEN ES 500 MG TABLET ONE (11:37)
[2022-09-28 11:51] LABS: BASOPHILS % (AUTO) 0.1 % (0.0-2.0); EOSINOPHILS % (AUTO) 0.2 % (0.0-6.0); LYMPHOCYTES # (AUTO) 1.4 K/uL (0.8-4.8); LYMPHOCYTES % (AUTO) 9.5 % (20.0-44.0); MEAN CORPUSCULAR HGB CONC 31 g/dl (31.0-36.0); MEAN CORPUSCULAR VOLUME 91 fL (82-100); MONOCYTES # (AUTO) 0.8 K/uL (0.1-1.30); MONOCYTES % (AUTO) 5.7 % (2.0-12.0); NEUTROPHILS # (AUTO) 12.5 K/uL (1.8-8.9); NEUTROPHILS % (AUTO) 84.5 % (43.0-81.0); PLATELET COUNT (AUTO) 646 K/uL (150-450); RED BLOOD CELL COUNT(AUTO) 2.09 MIL/uL (4.0-5.2); WHITE BLOOD COUNT (AUTO) 14.7 K/uL (4.3-11.0)
[2022-09-28 12:06] LABS: CALCIUM, SERUM 9.1 mg/dL (8.5-10.1); CREATININE 1.6 mg/dL (0.6-1.3); POTASSIUM 4.3 mmol/L (3.5-5.1)
[2022-09-28] MEDS ORDERED: ALBU8.5H8 IH ×2 (12:08)
[2022-09-28] MEDS ORDERED: ACET650S26 GT (12:08)
[2022-09-28] MEDS ORDERED: CYAN100T9 GT (12:08)
[2022-09-28] MEDS ORDERED: NUT.237L30 GT (12:08)
[2022-09-28] MEDS ORDERED: FERR300L GT (12:08)
[2022-09-28] MEDS ORDERED: METO25TA20 GT (12:08)
[2022-09-28] MEDS ORDERED: PANT40TA49 GT (12:08)
[2022-09-28] MEDS ORDERED: LACT1CAP71 GT (12:08)
[2022-09-28 12:09] LABS: HEMATOCRIT 19 % (33-45)
[2022-09-28 12:13] LABS: ALBUMIN 1.5 g/dL (3.4-5.0); BILIRUBIN,DIRECT 0.1 mg/dL (0.0-0.2); BILIRUBIN,TOTAL 0.3 mg/dL (0.2-1.0); TOTAL PROTEIN, SERUM 9.6 g/dL (6.4-8.2)
[2022-09-28] MEDS ORDERED: PANTOPRAZOLE 80 MG in IV NS 0.9% 500 ML IV ONE (12:30)
--- NOTE | 2022-09-28 12:50 | NUR ---
covid swab taken
--- NOTE | 2022-09-28 13:33 | NUR ---
CALLED NURSING SUP REGARDING PT BED
--- NOTE | 2022-09-28 13:58 | NUR ---
ROOM 312-2
--- NOTE | 2022-09-28 13:59 | NUR ---
Simi vega in [facility] - 09/28/22 at 1359 by LANETTE NOTIFIED OF ADMITIING
--- NOTE | 2022-09-28 14:12 | NUR ---
SPOKE TO DAUGHTER: CAROL JASMINE [phone]. SHE GAVE VERBAL CONSENT FOR BLOOD TRANSFUSION.
--- NOTE | 2022-09-28 14:20 | NUR ---
report given babs ESCOBAR
--- NOTE | 2022-09-28 14:21 | NUR ---
protonix ivpb endorsed to floor nurse for continues infusion.
--- NOTE | 2022-09-28 14:30 | NUR ---
moved to assigned inpatient room safely per protocol
--- NOTE | 2022-09-28 15:50 | NUR ---
RN ADMITTING NOTES PATIENT ARRIVED ONTO UNIT VIA GURNEY, ACCOMPANIED BY TWO ER STAFF. PATIENT ON ROOM AIR, TACH IN PLACE, NON-VERBAL. IV ACCESS R HAND #20G RUNNING PROTONIX 52 ML/HR, INTACT AND PATENT. PATIENT TRANSFERRED TO BED, V/S STABLE. PATIENT SHOWS NO S/S OF PAIN OR DISCOMFORT. TELE MONITOR ATTACHED, SHOWING SINUS RHYTHM HR 95. FULL BODY ASSESSMENT DONE: CARDIAC SOUND WNL, LUNG SOUNDS DIMINISHED, GI STOMACH SOUNDS DIMINISHED, G-TUBE IN PLACE, FLUSHING WELL, SKIN ISSUES: CHEST SCARRING, SACRAL REDNESS, AND R FOOT SCAB. SAFETY MEASURES IN PLACE: BED LOCKED AND IN LOWEST POSITION, HOB ELEVATED, CALL LIGHT WITHIN REACH, SIDE RAILS UPx3. WILL CONTINUE TO MONITOR.
[2022-09-28 16:52] VITALS: BP 111/65
[2022-09-28 16:53] LABS: LYMPHOCYTES % (MANUAL) 14 % (16-48); MONOCYTES % (MANUAL) 3 % (0-11.0); NEUTROPHILS % (MANUAL) 83 (42-76)
[2022-09-28] MEDS ORDERED: PANTOPRAZOLE 40 MG VIAL IV SCH (17:00)
[2022-09-28] MEDS ORDERED: ONDANSETRON HCL/PF 4 MG/2 ML VIAL IVP PRN (17:00)
[2022-09-28] MEDS: IV NS 0.9% 1,000 ML IV PRN (17:17)
--- NOTE | 2022-09-28 18:00 | NUR ---
RN NOTES IV FLUIDS STARTED AND ORDER PUT FOR TUBE FEEDING, G-TUBE STILL FLUSHING WELL, WILL CONNECT TO FEEDING ONCE AVAILABLE.
[2022-09-28] MEDS: GLUCERNA 1.2 1,000 ML BOTTLE GT PRN (18:13)
--- NOTE | 2022-09-28 18:53 | NUR ---
COSMETOLOGIST APPRENTICE CLOSING NOTES PATIENT AWAKE AND IN BED, NON-VERBAL. STABLE ON ROOM AIR, NO S/S OF RESPIRATORY DISTRESS. IV ACCESS R HAND #20G RUNNING NS @75 ML/HR. INTACT AND PATENT. NO S/S OF INFILTRATION. ON TELE MONITORING SHOWING SINUS RHYTHM HR 90. NO S/S OF CHEST PAIN OR DISCOMFORT. G-TUBE RUNNING, GLUCERNA 1.2 @75 CC/HR, TOLERATING WELL. PATIENT BEDBOUND, INCONTINENT. HAS SHOWN BRIGHT RED BLOOD IN URINE, NO STOOL DURING THE SHIFT. SKIN ISSUES: CHEST SCAR, SACRAL REDNESS, AND R FOOT SCAB. SAFETY MEASURES MAINTAINED: BED LOCKED AND IN LOWEST POSITION, SIDE RAILS UPx2, CALL LIGHT WITHIN REACH, HOB ELEVATED. WILL ENDORSE TO NEXT SHIFT ANY JOSH.
--- NOTE | 2022-09-28 19:30 | NUR ---
ORTHOPEDIC SHOE FITTER NOTE RECEIVED PATIENT FROM MORNING SHIFT NURSE; PATIENT IS ALERT AND ORIENTED X 1, NON VERBAL; ON ROOM AIR BREATHING EVENLY, TOLERATING WELL AND NO RESPIRATORY DISTRESS NOTED; WITH TRACHEOSTOMY IN PLACE; WITH IV ACCESS IN RFA G20 RUNNING NORMAL SALINE AT 75 ML/HR, INTACT AND PATENT; ON GLUCERNA FEEDING 1.2 AT 75 ML/HR; SAFETY PRECAUTIONS IMPLEMENTED, BED IN LOW POSITION, LOCKED, SIDE RAILS UP X 3, CALL LIGHT WITHIN REACH; WILL CONTINUE TO MONITOR THROUGHOUT SHIFT
[2022-09-29] VITALS (11 sets, daily range): BP systolic 127–155; BP diastolic 55–81
[2022-09-29] MEDS: IV NS 0.9% 1,000 ML IV PRN ×2 (05:55→21:59)
--- NOTE | 2022-09-29 06:55 | NUR ---
[facility] CLOSING NOTE RECEIVED PATIENT FROM MORNING SHIFT NURSE; PATIENT IS ALERT AND ORIENTED X 1, NON VERBAL; ON ROOM AIR BREATHING EVENLY, TOLERATING WELL AND NO RESPIRATORY DISTRESS NOTED; WITH TRACHEOSTOMY IN PLACE, DRESSING WAS CHANGED; WITH IV ACCESS IN RFA G20 RUNNING NORMAL SALINE AT 75 ML/HR, INTACT AND PATENT; ON GLUCERNA FEEDING 1.2 AT 75 ML/HR; HOOKED TO MINE CAR DISPATCHER CURRENTLY READING SINUS TACHYCARDIA 108 BPM; BED BATH DONE; ADMINISTERED MEDICATIONS PRESCRIBED; MONITORED ACCORDINGLY; SAFETY PRECAUTIONS IMPLEMENTED, BED IN LOW POSITION, LOCKED, SIDE RAILS UP X 3, CALL LIGHT WITHIN REACH; WILL ENDORSE TO AM NURSE FOR CONTINUITY OF CARE
[2022-09-29 07:04] LABS: BASOPHILS % (AUTO) 0.2 % (0.0-2.0); EOSINOPHILS % (AUTO) 0.3 % (0.0-6.0); LYMPHOCYTES # (AUTO) 1.5 K/uL (0.8-4.8); LYMPHOCYTES % (AUTO) 12.6 % (20.0-44.0); MEAN CORPUSCULAR HGB CONC 31 g/dl (31.0-36.0); MEAN CORPUSCULAR VOLUME 93 fL (82-100); MONOCYTES # (AUTO) 0.7 K/uL (0.1-1.30); MONOCYTES % (AUTO) 6.4 % (2.0-12.0); NEUTROPHILS # (AUTO) 9.3 K/uL (1.8-8.9); NEUTROPHILS % (AUTO) 80.5 % (43.0-81.0); PLATELET COUNT (AUTO) 670 K/uL (150-450); RED BLOOD CELL COUNT(AUTO) 2.04 MIL/uL (4.0-5.2); WHITE BLOOD COUNT (AUTO) 11.6 K/uL (4.3-11.0)
--- NOTE | 2022-09-29 07:30 | NUR ---
RN OPENING NOTE RECEIVED PATIENT IN BED, ASLEEP. EASILY AROUSED. PATIENT IS NON-VERBAL. STABLE ON ROOM AIR. WITH TRACH IN PLACE. ON TELE MONITOR SHOWING SINUS TACHYCARDIA, HR @ 115. NO S/SX OF CARDIAC DISTRESS NOTED. NOTED WITH IV ACCESS ON RIGHT HAND #20G, INTACT AND PATENT WITH NS @75 ML/HR RUNNING. WITH G-TUBE INTACT AND PATENT RUNNING GLUCERNA 1.2 @ 75ML/HR. HOB ELEVATED AT ALL TIMES. ASPIRATION AND SAFETY MEASURE IN PLACE. BED IN LOW AND LOCKED POSITION, SIDE RAILS UP X3, CALL LIGHT PLACED WITHIN EASY REACH. WILL CONTINUE TO MONITOR PATIENT.
[2022-09-29 07:41] LABS: CALCIUM, SERUM 9.1 mg/dL (8.5-10.1); CREATININE 1.3 mg/dL (0.6-1.3); MAGNESIUM 2.7 mg/dL (1.8-2.4); PHOSPHORUS 4.6 mg/dL (2.5-4.9); POTASSIUM 4.2 mmol/L (3.5-5.1)
[2022-09-29 08:03] LABS: HEMATOCRIT 19 % (33-45); HEMOGLOBIN 5.8 g/dL (11.5-14.8)
--- NOTE | 2022-09-29 08:08 | NUR ---
LUZ LOPEZ RECEIVED CALL FROM LAB. PATIENT'S HGB 5.8, HCT 19. PATIENT WITH ORDER FOR BLOOD TRANSFUSION, STILL WAITING FOR BLOOD PRODUCT , PER BLOOD BANK STILL NOT AVAILABLE, THEY WILL UPDATE US ONCE AVAILABLE.
[2022-09-29] MEDS: PANTOPRAZOLE 40 MG VIAL IV SCH (08:17)
--- NOTE | 2022-09-29 09:35 | NUR ---
RN NOTE BLOOD [id number] STARTED. VITAL SIGNS TAKEN, STABLE AND RECORDED. WILL MONITOR FOR A/R.
[2022-09-29 09:56] LABS: BILIRUBIN,URINE NEGATIVE (NEGATIVE); UGLUCOSE NEGATIVE (NEGATIVE)
[2022-09-29 09:57] LABS: PROTEIN,URINE 2+ mg/dl (NEGATIVE)
[2022-09-29 09:58] LABS: COLOR,URINE YELLOW (YELLOW); LEUKOCYTE ESTERASE ,URINE 3+ (NEGATIVE); NITRITE, URINE NEGATIVE (NEGATIVE); UROBILINOGEN,URINE 0.2 EU/dL (0.2)
[2022-09-29 10:28] LABS: BACTERIA,URINE Many /HPF (None Seen); SQUAMOUS EPITHELIAL CELL,UR Few /HPF (None Seen); URINE AMORPHOUS PHOSPHATES Moderate /HPF (None Seen)
--- NOTE | 2022-09-29 11:30 | NUR ---
RN NOTE 1 UNIT OF PRBC TRANSFUSED. NO A/R NOTED. AWAITING FOR THE NEXT UNIT OF BLOOD TO BE AVAILABLE.
--- NOTE | 2022-09-29 12:04 | NUR ---
WOUND CARE CONSULT: PT PRESENTS WITH EXCORIATED AREA TO BUTTOCKS AND RT FOOT DRY SCAB, PRESENT ON ADMISSION. PT NOTED TO BE MOVING HER LEGS IN THE BED ALMOST CONSTANTLY. DISCUSSED SKIN PROTECTION WITH NURSING STAFF. PT IS INCONTINENT. MD IN AGREEMENT WITH PLAN OF CARE.
[2022-09-29] MEDS: GLUCERNA 1.2 1,000 ML BOTTLE GT PRN (12:09)
[2022-09-29] MEDS: Z GUARD REMEDY 4 OZ OINT TP SCH (12:38)
[2022-09-29 13:02] LABS: OCCULT BLOOD STOOL NEGATIVE (NEGATIVE)
[2022-09-29] MEDS: CEFTRIAXONE 1 G in IV D5W 50 ML IV SCH (15:11)
[2022-09-29] MEDS: ACETAMINOPHEN 325 MG TABLET PO PRN (16:00)
--- NOTE | 2022-09-29 18:40 | NUR ---
RN CLOSING NOTE PATIENT IN BED, AWAKE. NO SIGNS OF ACUTE DISTRESS NOTED. REMAINS STABLE ON ROOM AIR. WITH TRACH IN PLACE. CONTINUE ON TELE MONITOR SHOWING SR/ST, HR @99-115. NO S/SX OF CARDIAC DISTRESS NOTED. IV ACCESS ON RIGHT HAND #20G, INTACT AND PATENT WITH NS @75 ML/HR RUNNING. WITH G-TUBE INTACT AND PATENT RUNNING GLUCERNA 1.2 @ 75ML/HR, NO RESIDUAL NOTED. HOB ELEVATED AT ALL TIMES. ASPIRATION AND SAFETY MEASURE IN PLACE. BED IN LOW AND LOCKED POSITION, SIDE RAILS UP X3, CALL LIGHT PLACED WITHIN EASY REACH. WILL ENDORSE TO NEXT SHIFT FOR CONTINUITY OF CARE.
--- NOTE | 2022-09-29 19:34 | NUR ---
PLASTER PATTERNMAKER OPENING NOTE RECEIVED PATIENT FROM MORNING SHIFT NURSE; PATIENT IS ALERT AND ORIENTED X 1, NON VERBAL; ON ROOM AIR BREATHING EVENLY, TOLERATING WELL AND NO RESPIRATORY DISTRESS NOTED; WITH TRACHEOSTOMY IN PLACE; WITH IV ACCESS IN RFA G20 RUNNING NORMAL SALINE AT 75 ML/HR, INTACT AND PATENT; G TUBE IN PLACE RUNNING WITH GLUCERNA FEEDING 1.2 AT 75 ML/HR; SAFETY PRECAUTIONS IMPLEMENTED, BED IN LOW POSITION, LOCKED, SIDE RAILS UP X 3, CALL LIGHT WITHIN REACH; WILL CONTINUE TO MONITOR THROUGHOUT SHIFT
--- NOTE | 2022-09-29 20:35 | NUR ---
GLASS MOULD CLEANER NOTE CALLED LAB FOR THE SECOND BAG OF PRBC FOR PATIENT AT 200H. INFORMED ME THAT THEY WILL CALL BACK ONCE BLOOD IS READY. FOLLOWED UP AT 2030H. AWAITING CALL FROM LAB.
[2022-09-29] MEDS: Z GUARD REMEDY 4 OZ OINT TP PRN (22:50)
[2022-09-30] VITALS (9 sets, daily range): BP systolic 105–149; BP diastolic 53–87
--- NOTE | 2022-09-30 01:30 | NUR ---
ROTOR BALANCER NOTE INITIATED TRANSFUSION OF 2ND BAG OF PRBC AT 2237H, INITIAL VITAL SIGNS TAKEN, MONITORED ACCORDINGLY; VITAL SIGNS TAKEN AT 15 MINUTES AFTER, AFTER 30 MINUTES, AND AFTER AN HOUR. TRANFUSION ENDED AT 0120H. PATIENT TOLERATED WELL.
--- NOTE | 2022-09-30 02:35 | NUR ---
ANDROID SOFTWARE ENGINEER NOTE PATIENT HAD 4 EPISODES OF LOOSE BOWEL MOVEMENT WITH FOUL SMELL. MD MADE AWARE.
[2022-09-30] MEDS: ACETAMINOPHEN 325 MG TABLET PO PRN (02:50)
[2022-09-30 03:47] LABS: BASOPHILS % (MANUAL) 0 % (0.0-2.0); EOSINOPHILS % (MANUAL) 0 % (0-4); LYMPHOCYTES % (MANUAL) 16 % (16-48); MONOCYTES % (MANUAL) 3 % (0-11.0); NEUTROPHILS % (MANUAL) 81 (42-76)
[2022-09-30] MEDS: GLUCERNA 1.2 1,000 ML BOTTLE GT PRN (04:39)
--- NOTE | 2022-09-30 05:00 | NUR ---
ELEMENTARY CLASSROOM TEACHER NOTE NOTED SCRATCHES ONTO THE PATIENT'S LEFT CHEEK, LEFT KNEE AND LEFT INNER THIGH CAUSED BY HER OWN FINGERS, PHOTOGRAPHS TAKEN AND INSERTED IN THE CHARTS
--- NOTE | 2022-09-30 06:51 | NUR ---
SENIOR SALES REPRESENTATIVE CLOSING NOTE PATIENT IS ALERT AND ORIENTED X 1, NON VERBAL; ON ROOM AIR BREATHING EVENLY, TOLERATING WELL AND NO RESPIRATORY DISTRESS NOTED; WITH TRACHEOSTOMY IN PLACE; WITH IV ACCESS IN RFA G20 RUNNING NORMAL SALINE AT 75 ML/HR, INTACT AND PATENT; G TUBE IN PLACE RUNNING WITH GLUCERNA FEEDING 1.2 AT 75 ML/HR; HOOKED TO SOLDERING MACHINE TENDER CURRENTLY READING SINUS TACHYCARDIA 112 BPM; ADMINISTERED MEDICATIONS PRESCRIBED; PATIENT'S NEEDS ATTENDED; MONITORED ACCORDINGLY; ASSISTED IN PM CARE; SAFETY PRECAUTIONS IMPLEMENTED, BED IN LOW POSITION, LOCKED, SIDE RAILS UP X 3, CALL LIGHT WITHIN REACH; WILL ENDORSE TO AM NURSE FOR CONTINUITY OF CARE
--- NOTE | 2022-09-30 08:00 | NUR ---
COMPENSATION ANALYST OPENING NOTE RECEIVED PATIENT AWAKE IN BED X 1, NON VERBAL, WITH TRACHEOTOMY ON ROOM AIR BREATHING EVENLY, TOLERATING WELL NO RESPIRATORY DISTRESS NOTED; WITH IV ACCESS IN RFA G20 RUNNING NORMAL SALINE AT 75 ML/HR, INTACT AND PATENT; G TUBE IN PLACE RUNNING WITH GLUCERNA FEEDING 1.2 AT 75 ML/HR; SAFETY PRECAUTIONS IMPLEMENTED, BED IN LOWEST POSITION, BED LOCKED, SIDE RAILS UP X 3, CALL LIGHT WITHIN REACH; WILL CONTINUE PLAN OF CARE
[2022-09-30 08:07] LABS: BASOPHILS # (AUTO) 0.1 K/uL (0.0-0.2); BASOPHILS % (AUTO) 0.5 % (0.0-2.0); EOSINOPHILS % (AUTO) 0.3 % (0.0-6.0); HEMATOCRIT 26 % (33-45); HEMOGLOBIN 8.3 g/dL (11.5-14.8); LYMPHOCYTES # (AUTO) 1.9 K/uL (0.8-4.8); MEAN CORPUSCULAR HGB CONC 32 g/dl (31.0-36.0); MEAN CORPUSCULAR VOLUME 91 fL (82-100); MONOCYTES # (AUTO) 0.8 K/uL (0.1-1.30); MONOCYTES % (AUTO) 5.1 % (2.0-12.0); NEUTROPHILS # (AUTO) 12.7 K/uL (1.8-8.9); NEUTROPHILS % (AUTO) 82.1 % (43.0-81.0); PLATELET COUNT (AUTO) 653 K/uL (150-450); WHITE BLOOD COUNT (AUTO) 15.5 K/uL (4.3-11.0)
[2022-09-30 08:27] LABS: CALCIUM, SERUM 9.2 mg/dL (8.5-10.1); CREATININE 1.2 mg/dL (0.6-1.3); MAGNESIUM 2.4 mg/dL (1.8-2.4); PHOSPHORUS 4.2 mg/dL (2.5-4.9); POTASSIUM 3.8 mmol/L (3.5-5.1)
[2022-09-30] MEDS: PANTOPRAZOLE 40 MG VIAL IV SCH (08:51)
[2022-09-30] MEDS: Z GUARD REMEDY 4 OZ OINT TP SCH (09:20)
--- NOTE | 2022-09-30 11:10 | NUR ---
CUSTOMER SUPPLY CHAIN ANALYST NOTE SEEN BY HOSPITALIST LAKEISHA.
[2022-09-30] MEDS: CEFTRIAXONE 1 G in IV D5W 50 ML IV SCH (15:22)
[2022-09-30] MEDS: IV NS 0.9% 1,000 ML IV PRN (16:01)
[2022-09-30 17:26] LABS: ABG BASE EXCESS 1.6 mmol/L; ABG PCO2 35.6 mmHg (35.0-45.0); ABG PH 7.466 (7.350-7.450); ABG PO2 76.8 mmHg (75.0-100.0); AaDO2 30.3 mmHg; COHb 0.8 % (0.5-1.5); MetHb 0.3 % (0.0-1.5); SITE, ABG Right Radial; VENT MODE, BG trached room air
--- NOTE | 2022-09-30 18:46 | NUR ---
LATH HAND CLOSING NOTE PATIENT IS AWAKE, ALERT AND ORIENTED X 1, NON VERBAL; WITH TRACHEOSTOMY IN PLACED ON ROOM AIR BREATHING EVENLY, NOT IN DISTRESS NOTED; WITH IV ACCESS IN RFA G20 RUNNING NORMAL SALINE AT 75 ML/HR, INTACT AND PATENT; G TUBE IN PLACE RUNNING WITH GLUCERNA FEEDING 1.2 AT 75 ML/HR; HOOKED TO THEATER TECHNICIAN CURRENTLY READING SINUS TACHYCARDIA 114 BPM; DUE MEDICATIONS ARE GIVEN; PATIENT'S NEEDS ATTENDED TO; MONITORED ACCORDINGLY; ASSISTED IN AM CARE; SAFETY PRECAUTIONS IMPLEMENTED, BED IN LOWEST POSITION, LOCKED, SIDE RAILS UP X 3, CALL LIGHT WITHIN REACH; WILL ENDORSE NEXT SHIFT FOR CONTINUITY OF CARE.
--- NOTE | 2022-09-30 19:16 | NUR ---
CURRICULUM AND INSTRUCTION SPECIALIST OPENING NOTE RECEIVED PATIENT IN WITH EYES CLOSED BUT EASY TO AROUSED,NON VERBAL, WITH TRACHEOTOMY ON ROOM AIR TOLERATING WELL SATTING 97.8%,NO SOB/DISTRESS NOTED,NO SIGN OF PAIN/DISCOMFORT AT THIS TIME,IV ACCESS IN RFA G20 RUNNING NORMAL SALINE AT 75 ML/HR INFUSING WELL,G TUBE FEEDING GLUCERNA FEEDING 1.2 AT 75 ML/HR EMANI WELL NO RESIDUAL NOTED, SAFETY PRECAUTIONS IMPLEMENTED, BED IN LOWEST POSITION, BED LOCKED, SIDE RAILS UP X 3, CALL LIGHT WITHIN REACH; WILL CONTINUE MONITOR.
[2022-10-01] MEDS: ACETAMINOPHEN 325 MG TABLET PO PRN (01:23)
[2022-10-01 04:35] VITALS: BP 141/83
[2022-10-01] MEDS: IV NS 0.9% 1,000 ML IV PRN (06:08)
--- NOTE | 2022-10-01 06:18 | NUR ---
HYBRID POWERTRAIN DEVELOPMENT ENGINEER CLOSING NOTE; PATIENT IN BED AWAKED,NON VERBAL,WITH TRACHEOTOMY ON ROOM AIR TOLERATING WELL SATTING 99%,NO SOB/DISTRESS NOTED,NO SIGN OF PAIN/DISCOMFORT DURING SHIFT,DUE MEDS GIVEN ORDER,ALL NEEDS ATTENDED,IV ACCESS IN RWRIST G24 WITH NS 75 ML/HR INFUSING WELL,GTUBE GLUCERNA 1.2 AT 75 ML/HR EMANI WELL NO RESIDUAL NOTED, SAFETY PRECAUTIONS IMPLEMENTED, BED IN LOWEST POSITION, BED LOCKED, SIDE RAILS UP X 3, CALL LIGHT WITHIN REACH; WILL ENDORSED TO NEXT SHIFT.
[2022-10-01 07:59] VITALS: BP 150/80
--- NOTE | 2022-10-01 08:00 | NUR ---
JOY LOADER OPENING NOTE RECEIVED PATIENT SLEEPING BUT EASILY AWAKEN X1, NON VERBAL, WITH TRACHEOTOMY ON ROOM AIR BREATHING EVENLY, TOLERATING WELL NO RESPIRATORY DISTRESS NOTED; WITH IV ACCESS IN R WRIST G20 RUNNING NORMAL SALINE AT 75 ML/HR, INTACT AND PATENT; G TUBE IN PLACE RUNNING WITH GLUCERNA FEEDING 1.0 AT 75 ML/HR; SAFETY PRECAUTIONS IMPLEMENTED, BED IN LOWEST POSITION, BED LOCKED, SIDE RAILS UP X 3, CALL LIGHT WITHIN REACH; WILL CONTINUE PLAN OF CARE
[2022-10-01] MEDS: GLUCERNA 1.2 1,000 ML BOTTLE GT PRN (08:05)
[2022-10-01] MEDS: PANTOPRAZOLE 40 MG/PACK PACK GT SCH (09:24)
[2022-10-01] MEDS: Z GUARD REMEDY 4 OZ OINT TP SCH (09:35)
[2022-10-01] MEDS ORDERED: MEROPENEM 500 MG in IV NS 0.9% 50 ML IV SCH (11:00)
[2022-10-01] MEDS: MEROPENEM 500 MG in IV NS 0.9% 50 ML IV SCH ×2 (11:39→19:54)
[2022-10-01 12:00] VITALS: BP 156/79
[2022-10-01 16:11] VITALS: BP 163/70
--- NOTE | 2022-10-01 18:48 | NUR ---
HINGING MACHINE OPERATOR CLOSING NOTES PATIENT SLEEPING BUT EASILY AWAKEN X1, NON VERBAL, WITH TRACHEOTOMY ON ROOM AIR BREATHING EVENLY, TOLERATING WELL NO RESPIRATORY DISTRESS NOTED; WITH IV ACCESS IN R WRIST G20 RUNNING NORMAL SALINE AT 75 ML/HR, INTACT AND PATENT; G TUBE IN PLACE RUNNING WITH GLUCERNA FEEDING 1.0 AT 75 ML/HR; SAFETY PRECAUTIONS IMPLEMENTED, BED IN LOWEST POSITION, BED LOCKED, SIDE RAILS UP X 3, CALL LIGHT WITHIN REACH; WILL INDORSE TO NEXT SHIFT FOR CONTINUITY OF CARE.
[2022-10-01 20:00] VITALS: BP 126/72
[2022-10-02] VITALS: BP 150/76
[2022-10-02] MEDS: GLUCERNA 1.2 1,000 ML BOTTLE GT PRN ×2 (00:10→17:07)
[2022-10-02] MEDS: IV NS 0.9% 1,000 ML IV PRN (03:11)
[2022-10-02 04:00] VITALS: BP 127/99
[2022-10-02] MEDS: MEROPENEM 500 MG in IV NS 0.9% 50 ML IV SCH (04:05)
--- NOTE | 2022-10-02 06:48 | NUR ---
END OF SHIFT REPORT Patient in bed, nonverbal. Trach intact, off Oxygen, tolerating room air. Sinus Tach in the Tele monitor HR 105. Right hand IV peripheral line, IVF infusing, on IV abx. Afebrile. Had BM during the shift. GTube feeding at 75ml/hr, minimal gastric residual. Turned and repositioned q 2h. Urine cx pending result. Plan for continue abx. Will endorse to oncoming RN.
[2022-10-02 07:07] LABS: BASOPHILS # (AUTO) 0.2 K/uL (0.0-0.2); BASOPHILS % (AUTO) 1.1 % (0.0-2.0); EOSINOPHILS % (AUTO) 0.2 % (0.0-6.0); HEMATOCRIT 30 % (33-45); HEMOGLOBIN 8.5 g/dL (11.5-14.8); LYMPHOCYTES # (AUTO) 0.9 K/uL (0.8-4.8); LYMPHOCYTES % (AUTO) 5.7 % (20.0-44.0); MEAN CORPUSCULAR HGB CONC 29 g/dl (31.0-36.0); MEAN CORPUSCULAR VOLUME 98 fL (82-100); MONOCYTES # (AUTO) 0.6 K/uL (0.1-1.30); MONOCYTES % (AUTO) 4.1 % (2.0-12.0); NEUTROPHILS # (AUTO) 13.9 K/uL (1.8-8.9); NEUTROPHILS % (AUTO) 88.9 % (43.0-81.0); PLATELET COUNT (AUTO) 667 K/uL (150-450); RED BLOOD CELL COUNT(AUTO) 3.04 MIL/uL (4.0-5.2); WHITE BLOOD COUNT (AUTO) 15.7 K/uL (4.3-11.0)
--- NOTE | 2022-10-02 07:10 | NUR ---
INTERNAL SALES OPENING NOTE RECEIVED PATIENT SLEEPING BUT EASILY AWAKEN X1, NON VERBAL, WITH TRACHEOTOMY ON ROOM AIR BREATHING EVENLY, TOLERATING WELL NO RESPIRATORY DISTRESS NOTED; WITH IV ACCESS IN R WRIST G20 RUNNING NORMAL SALINE AT 75 ML/HR, INTACT AND PATENT; G TUBE IN PLACE RUNNING WITH GLUCERNA FEEDING 1.2 AT 75 ML/HR; SAFETY PRECAUTIONS IMPLEMENTED, BED IN LOWEST POSITION, BED LOCKED, SIDE RAILS UP X 3, CALL LIGHT WITHIN REACH; WILL CONTINUE TO MONITOR
[2022-10-02 07:31] LABS: CALCIUM, SERUM 9.1 mg/dL (8.5-10.1); CREATININE 1.5 mg/dL (0.6-1.3); MAGNESIUM 2.4 mg/dL (1.8-2.4); PHOSPHORUS 5.7 mg/dL (2.5-4.9)
[2022-10-02 08:00] VITALS: BP 128/92
--- NOTE | 2022-10-02 08:05 | NUR ---
0.9 NS @75 ML/HR PUT ON HOLD DUE TO HIGH SODIUM (158). 200 CC OF WATER GIVEN VIA GT . REQUESTED RECHECK OF SODIUM LEVEL TO LAB. INFORMED
[2022-10-02] MEDS: PANTOPRAZOLE 40 MG/PACK PACK GT SCH (08:46)
--- NOTE | 2022-10-02 09:10 | NUR ---
RECHECKED OF SODIUM LEVEL RESULTED TO 154, STILL HIGH. 200CC OF WATER GIVEN VIA GT. INFORMED
[2022-10-02] MEDS: Z GUARD REMEDY 4 OZ OINT TP PRN (09:55)
[2022-10-02] MEDS: Z GUARD REMEDY 4 OZ OINT TP SCH (09:57)
[2022-10-02 12:00] VITALS: BP 129/92
[2022-10-02] MEDS: ACETAMINOPHEN 325 MG TABLET PO PRN (15:49)
[2022-10-02 16:00] VITALS: BP 132/74
--- NOTE | 2022-10-02 19:11 | NUR ---
GARNISHER CLOSING NOTES PATIENT SLEEPING BUT EASILY AWAKEN X1, NON VERBAL, WITH TRACHEOTOMY ON ROOM AIR BREATHING EVENLY, TOLERATING WELL NO RESPIRATORY DISTRESS NOTED; WITH IV ACCESS IN R WRIST G20 NORMAL SALINE AT 75 ML/HR (ON HOLD-HYPERNATREMIA) , INTACT AND PATENT; G TUBE IN PLACE RUNNING WITH GLUCERNA FEEDING 1.2 AT 75 ML/HR; SAFETY PRECAUTIONS IMPLEMENTED, BED IN LOWEST POSITION, BED LOCKED, SIDE RAILS UP X 3, CALL LIGHT WITHIN REACH; WILL INDORSE TO ONCOMING DIRECTOR OF AVIATION RN FOR CONTINUITY OF CARE.
--- NOTE | 2022-10-02 19:34 | NUR ---
GUYLINE OPERATOR OPENING NOTE RECEIVED PATIENT IN BED WITH EYES CLOSED BUT EASY TO AROUSED,NON VERBAL, WITH TRACHEOTOMY ON ROOM AIR TOLERATING WELL SATTING 99%,NO SOB/DISTRESS NOTED,NO SIGN OF PAIN/DISCOMFORT AT THIS TIME,IV ACCESS IN RWRIST 24G PATENT AND INTACT,G TUBE FEEDING GLUCERNA 1.2 AT 75 ML/HR EMANI WELL NO RESIDUAL NOTED, SAFETY PRECAUTIONS IMPLEMENTED, BED IN LOWEST POSITION, BED LOCKED, SIDE RAILS UP X 3, CALL LIGHT WITHIN REACH; WILL CONTINUE MONITOR.
[2022-10-02 20:00] VITALS: BP 132/97
[2022-10-02] MEDS: MEROPENEM 1 G in IV NS 0.9% 100 ML IV SCH (20:49)
[2022-10-03] VITALS: BP 145/93
[2022-10-03] MEDS: ACETAMINOPHEN 325 MG TABLET PO PRN ×2 (03:02→13:08)
--- NOTE | 2022-10-03 06:27 | NUR ---
PSYCHOMETRIST CLOSING NOTE; PATIENT IN BED AWAKED,NON VERBAL,WITH TRACHEOTOMY ON ROOM AIR TOLERATING WELL SATTING 98.6%,NO SOB/DISTRESS NOTED,NO SIGN OF PAIN/DISCOMFORT DURING SHIFT,DUE MEDS GIVEN ORDER,ALL NEEDS ATTENDED,IV ACCESS IN RHAND G24 PATENT AND INTACT,NS ON HOLD DUE TO HYPERNATREMIA,GTUBE GLUCERNA 1.2 AT 75 ML/HR EMANI WELL NO RESIDUAL NOTED,FLUSH GT 200ML Q4H. SAFETY PRECAUTIONS IMPLEMENTED, BED IN LOWEST POSITION, BED LOCKED, SIDE RAILS UP X 3, CALL LIGHT WITHIN REACH; WILL ENDORSED TO NEXT SHIFT.
[2022-10-03 08:00] VITALS: BP 144/96
--- NOTE | 2022-10-03 08:13 | NUR ---
SUPERVISOR SHRIMP POND OPENING NOTE; PATIENT IN BED AWAKE,NON VERBAL,WITH TRACHEOTOMY ON ROOM AIR TOLERATING WELL SATTING 98.6%,NO SOB/DISTRESS NOTED,NO SIGN OF PAIN/DISCOMFORT. IV ACCESS IN RHAND G24 PATENT AND INTACT,NS ON HOLD DUE TO HYPERNATREMIA,GTUBE GLUCERNA 1.2 AT 75 ML/HR EMANI WELL. SAFETY PRECAUTIONS IMPLEMENTED, BED IN LOWEST POSITION, BED LOCKED, SIDE RAILS UP X 3, CALL LIGHT WITHIN REACH; WILL CONTINUE TO MONITOR.
[2022-10-03] MEDS: PANTOPRAZOLE 40 MG/PACK PACK GT SCH (08:50)
[2022-10-03] MEDS: MEROPENEM 1 G in IV NS 0.9% 100 ML IV SCH ×2 (08:50→21:22)
[2022-10-03] MEDS: Z GUARD REMEDY 4 OZ OINT TP SCH (09:05)
[2022-10-03 11:21] LABS: BASOPHILS # (AUTO) 0.1 K/uL (0.0-0.2); BASOPHILS % (AUTO) 0.4 % (0.0-2.0); EOSINOPHILS % (AUTO) 0.6 % (0.0-6.0); HEMATOCRIT 31 % (33-45); HEMOGLOBIN 9.2 g/dL (11.5-14.8); LYMPHOCYTES # (AUTO) 1.3 K/uL (0.8-4.8); LYMPHOCYTES % (AUTO) 10.5 % (20.0-44.0); MEAN CORPUSCULAR HGB CONC 30 g/dl (31.0-36.0); MEAN CORPUSCULAR VOLUME 93 fL (82-100); MONOCYTES # (AUTO) 0.5 K/uL (0.1-1.30); MONOCYTES % (AUTO) 4.2 % (2.0-12.0); NEUTROPHILS # (AUTO) 10.7 K/uL (1.8-8.9); NEUTROPHILS % (AUTO) 84.3 % (43.0-81.0); PLATELET COUNT (AUTO) 608 K/uL (150-450); RED BLOOD CELL COUNT(AUTO) 3.29 MIL/uL (4.0-5.2); WHITE BLOOD COUNT (AUTO) 12.7 K/uL (4.3-11.0)
[2022-10-03 12:00] VITALS: BP 156/73
[2022-10-03 16:00] VITALS: BP 127/74
[2022-10-03] MEDS: GLUCERNA 1.2 1,000 ML BOTTLE GT PRN (16:49)
[2022-10-03] MEDS ORDERED: IV 1/2NS 1000 ML 1,000 ML IV SCH (17:00)
--- NOTE | 2022-10-03 18:28 | NUR ---
RN CLOSING NOTES PATIENT IN BED AWAKE, NON VERBAL,WITH TRACHEOSTOMY. ON ROOM AIR TOLERATING WELL SATTING 97%, NO SOB/DISTRESS NOTED,NO SIGN OF PAIN/DISCOMFORT DURING SHIFT,DUE MEDS GIVEN ORDER,ALL NEEDS ATTENDED,IV ACCESS IN LEFT LOWER LEG G24 PATENT AND INTACT, GTUBE GLUCERNA 1.2 AT 75 ML/HR EMANI WELL NO RESIDUAL NOTED,FLUSH GT WITH 350 ML H2O Q4H. SAFETY PRECAUTIONS IMPLEMENTED, BED IN LOWEST POSITION, BED LOCKED, SIDE RAILS UP X 3, CALL LIGHT WITHIN REACH; WILL ENDORSED TO NEXT SHIFT.
--- NOTE | 2022-10-03 19:20 | NUR ---
RESIDENT ADVISOR OPENING NOTE PATIENT AWAKE IN BED, PT NON-VERBAL. PT NOTED WITH TRACH TO ROOM AIR, NO S/S OF DISTRESS OR SOB NOTED, BREATHING EVEN AND UNLABORED. PATIENT ON EXTERNAL ELECTRICAL ELECTRONICS ENGINEERS READING SINUS TACHY, HR: 108. IV ACCESS ON LEFT FOOT #24G INTACT AND INFUSING 1/2 NS @ 100 ML/HR. PATIENT NOTED WITH GTUBE RUNNING GLUCERNA 1.2 @ 75 ML/HR, NO RESIDUAL NOTED. SAFETY MEASURES IN PLACE: SIDE RAILS UP X 3, BED LOCKED IN LOWEST POSITION, HOB ELEVATED, BED ALARM ON. WILL CONTINUE TO MONITOR PATIENT
[2022-10-03 20:00] VITALS: BP 133/83
--- NOTE | 2022-10-03 22:22 | NUR ---
AUTOMOBILE BODY REPAIR SUPERVISOR NOTE PER LIZET BASURTO, CHANGE 1/2NS @ 100 ML/HR TO D5 1/2 NS @ 100 ML/HR
[2022-10-03] MEDS ORDERED: IV D5/0.45 NACL 1,000 ML IV PRN (22:30)
[2022-10-04] VITALS: BP 124/84
--- NOTE | 2022-10-04 02:04 | NUR ---
RT Trach pt on room air HR 73 SPO2 98%. Trach care done. No SOB noted.
[2022-10-04 07:19] LABS: BASOPHILS # (AUTO) 0.1 K/uL (0.0-0.2); BASOPHILS % (AUTO) 0.5 % (0.0-2.0); EOSINOPHILS % (AUTO) 1.1 % (0.0-6.0); HEMATOCRIT 29 % (33-45); HEMOGLOBIN 8.6 g/dL (11.5-14.8); LYMPHOCYTES # (AUTO) 1.3 K/uL (0.8-4.8); LYMPHOCYTES % (AUTO) 11.9 % (20.0-44.0); MEAN CORPUSCULAR HGB CONC 30 g/dl (31.0-36.0); MEAN CORPUSCULAR VOLUME 92 fL (82-100); MONOCYTES # (AUTO) 0.4 K/uL (0.1-1.30); MONOCYTES % (AUTO) 3.4 % (2.0-12.0); NEUTROPHILS # (AUTO) 9.2 K/uL (1.8-8.9); NEUTROPHILS % (AUTO) 83.1 % (43.0-81.0); PLATELET COUNT (AUTO) 590 K/uL (150-450); RED BLOOD CELL COUNT(AUTO) 3.14 MIL/uL (4.0-5.2); WHITE BLOOD COUNT (AUTO) 11.1 K/uL (4.3-11.0)
[2022-10-04 07:21] LABS: CREATININE 1.2 mg/dL (0.6-1.3); MAGNESIUM 2.3 mg/dL (1.8-2.4); PHOSPHORUS 4.8 mg/dL (2.5-4.9); POTASSIUM 3.7 mmol/L (3.5-5.1)
--- NOTE | 2022-10-04 07:28 | NUR ---
WASTE PAPER HAMMERMILL OPERATOR CLOSING NOTE PATIENT AWAKE IN BED, PT NON-VERBAL. PT NOTED WITH TRACH TO ROOM AIR, NO S/S OF DISTRESS OR SOB NOTED, BREATHING EVEN AND UNLABORED. PATIENT ON EXTERNAL HIGHWAY ENGINEERING TECHNICIAN READING SINUS TACHY, HR: 112. IV ACCESS ON RIGHT FOOT #22G INTACT AND INFUSING D5 1/2 NS @ 100 ML/HR. PATIENT WITH GTUBE GLUCERNA 1.2 @ 75 ML/HR X 20H, STOPPED AT 0400 AM TO BE TURNED BACK ON AT 8 AM. MEDICATIONS GIVEN ORDERED, PT NEEDS MET THROUGHOUT SHIFT, WOUND CARE PHOTOS TAKEN AND PLACED IN CHART. SAFETY MEASURES IN PLACE: SIDE RAILS UP X 3, BED LOCKED IN LOWEST POSITION, HOB ELEVATED, BED ALARM ON. ENDORSED TO DAYSHIFT RN FOR CONTINUITY OF CARE
--- NOTE | 2022-10-04 07:40 | NUR ---
TRANS ROUTER OPENING NOTE PATIENT AWAKE IN BED, PT NON-VERBAL. PT NOTED WITH TRACH TO ROOM AIR, NO S/S OF DISTRESS OR SOB NOTED, BREATHING EVEN AND UNLABORED. PATIENT ON EXTERNAL HUMAN SERVICES CASE MANAGER READING SINUS TACHY, HR: 105. IV ACCESS ON RIGHT FOOT #22G INTACT AND INFUSING D5 1/2 NS @ 100 ML/HR. PATIENT WITH GTUBE GLUCERNA 1.2 @ 75 ML/HR X 20H, STOPPED AT 0400 AM TO BE TURNED BACK ON AT 8 AM. SAFETY MEASURES IN PLACE: SIDE RAILS UP X 3, BED LOCKED IN LOWEST POSITION, HOB ELEVATED, BED ALARM ON. WILL CONTINUE TO MONITOR.
[2022-10-04 08:00] VITALS: BP 154/94
[2022-10-04] MEDS: PANTOPRAZOLE 40 MG/PACK PACK GT SCH (08:10)
[2022-10-04] MEDS: MEROPENEM 1 G in IV NS 0.9% 100 ML IV SCH (08:11)
[2022-10-04] MEDS: Z GUARD REMEDY 4 OZ OINT TP SCH (08:11)
[2022-10-04] MEDS ORDERED: CEFD300C3 PO (10:45)
--- NOTE | 2022-10-04 15:30 | NUR ---
DISCHARGED NOTES PATIENT DISCHARGED TO [facility] VIA [facility] TRAN[facility]O. NON VERBAL, ON RA TOLERATING WELL WITH SPO2 OF 98%. NO SOB NOTED. VITAL SIGNS TAKEN, STABLE AND RECORDED. PICTURES OF SKIN ISSUES WERE TAKEN BY NIGHT NURSE. ALL BELONGINGS ACCOUNTED TO THE PATIENT. ALL DUE MEDS GIVEN. REPORT FIVEN TO [place] NURSE DEVOPS CONSULTANT. DISCHARGED INSTRUCTIONS RELAYED TO DEVOPS CONSULTANT. IV ACCESS REMOVED WITH NO ACTIVE BLEEDING NOTED. PATIENT LEFT THE UNIT VIA GURNEY ACCOMPANIED BY EMS. FAMILY AWARE. DISCHARGED.
== END 2022-10-04 15:30 | DRG 254 ==
LOC: ER 11:10 → TELE 14:01
PROVIDERS: ADMIT Nurse Practitioner Acute Care; ATTEND Nurse Practitioner Acute Care
PROC: 30233N1 Transfusion of Nonautologous Red Blood Cells into Peripheral Vein, Percutaneous Approach (ICD-10-PCS; principal; 2022-09-28)
PROC: 05HB33Z Insertion of Infusion Device into Right Basilic Vein, Percutaneous Approach (ICD-10-PCS; 2022-10-04)
DX: K90.9 Intestinal malabsorption, unspecified (principal); N17.0 Acute kidney failure with tubular necrosis; D68.59 Other primary thrombophilia; E87.0 Hyperosmolality and hypernatremia; R53.2 Functional quadriplegia; G93.1 Anoxic brain damage, not elsewhere classified; L89.159 Pressure ulcer of sacral region, unspecified stage; D63.8 Anemia in other chronic diseases classified elsewhere; E83.41 Hypermagnesemia; Z86.74 Personal history of sudden cardiac arrest; E87.1 Hypo-osmolality and hyponatremia; E88.09 Other disorders of plasma-protein metabolism, not elsewhere classified; D75.839 Thrombocytosis, unspecified; D50.9 Iron deficiency anemia, unspecified; Z20.822 Contact with and (suspected) exposure to COVID-19; E78.5 Hyperlipidemia, unspecified; I25.2 Old myocardial infarction; Z86.73 Personal history of transient ischemic attack (TIA), and cerebral infarction without residual deficits; I10 Essential (primary) hypertension; Z95.1 Presence of aortocoronary bypass graft; Z79.82 Long term (current) use of aspirin; Z79.899 Other long term (current) drug therapy; D72.829 Elevated white blood cell count, unspecified; F09 Unspecified mental disorder due to known physiological condition; R13.10 Dysphagia, unspecified; K21.9 Gastro-esophageal reflux disease without esophagitis; Z95.0 Presence of cardiac pacemaker; I25.10 Atherosclerotic heart disease of native coronary artery without angina pectoris; N39.0 Urinary tract infection, site not specified; Z93.0 Tracheostomy status; Z93.1 Gastrostomy status; B96.20 Unspecified Escherichia coli [E. coli] as the cause of diseases classified elsewhere; B95.1 Streptococcus, group B, as the cause of diseases classified elsewhere; R06.89 Other abnormalities of breathing
CPT/HCPCS: 31720; 36415; 36600; 71045-TC; 80048-TC; 80061-TC; 80076-TC; 81001; 82272-TC; 82962-TC; 83735-TC; 84100-TC; 84295-TC; 84703-TC; 85025-TC; 85730-TC; 86850; 86850-TC; 86860; 86870; 86880; 86900; 86906; 87081-TC; 87086-TC; 94799-TC; A4623; A6403; C9113; C9803; G0378; J0696; J2185; J3490; J7030; J7040; J7050; J7060; P9016

== ENCOUNTER 2023-07-28 12:00 | Inpatient (IN) | payer MEDICAID, OTHER ==
[~2023-07-28] VITALS: Ht 167.6 cm; Wt 61.7 kg
[~2023-07-28 12:00] MED LIST changes: -ACET-2605 GT; -ACET-868 GT; +ACET650S26 GT; +ALBU8.5H8 IH; -AMIN30LI27 GT; -ATOR40TA GT; +CEFD300C3 PO; -CRAN3875 GT; -CYAN-51 GT; +CYAN100T9 GT; -DOCU50LI GT; -FAMO20TA8 GT; +FERR300L GT; +LACT1CAP71 GT; -LEVA15HF4 IH; -LORA-259 GT; -MAGN400T26 GT; -MERO1VIA23 IV; +NUT.237L30 GT; -NUT.237L31 GT; +PANT40TA49 GT; -SACC250C GT; -SENN-261 GT
[2023-07-28 12:45] LABS: BASOPHILS % (AUTO) 0.3 % (0.0-2.0); EOSINOPHILS % (AUTO) 0.4 % (0.0-6.0); LYMPHOCYTES % (AUTO) 20.7 % (20.0-44.0); MEAN CORPUSCULAR HEMOGLOBIN 32 PG (26.0-33.0); MEAN CORPUSCULAR HGB CONC 34 g/dl (31.0-36.0); MEAN CORPUSCULAR VOLUME 95 fL (82-100); MONOCYTES # (AUTO) 0.7 K/uL (0.1-1.30); MONOCYTES % (AUTO) 7.1 % (2.0-12.0); NEUTROPHILS # (AUTO) 6.8 K/uL (1.8-8.9); NEUTROPHILS % (AUTO) 71.5 % (43.0-81.0); PLATELET COUNT (AUTO) 628 K/uL (150-450); RED CELL DISTRIBUTION WIDTH 16.3 % (11.5-15.0); WHITE BLOOD COUNT (AUTO) 9.6 K/uL (4.3-11.0)
[2023-07-28 12:54] LABS: RED BLOOD CELL COUNT(AUTO) 1.84 MIL/uL (4.0-5.2)
[2023-07-28 12:55] LABS: HEMATOCRIT 17 % (33-45); HEMOGLOBIN 5.9 g/dL (11.5-14.8)
[2023-07-28 13:05] LABS: INR 1.07 (0.91-1.10); PARTIAL THROMBOPLASTIN TIME 32.6 SEC (24.3-34.3); PROTHROMBIN TIME 11.3 SECS (9.2-11.1)
[2023-07-28 13:14] LABS: ALBUMIN 1.9 g/dL (3.4-5.0); BILIRUBIN,DIRECT 0.1 mg/dL (0.0-0.2); BILIRUBIN,TOTAL 0.3 mg/dL (0.2-1.0); CALCIUM, SERUM 10.6 mg/dL (8.5-10.1); POTASSIUM 3.3 mmol/L (3.5-5.1); TOTAL PROTEIN, SERUM 10.1 g/dL (6.4-8.2)
[2023-07-28] MEDS ORDERED: ACET-868 GT (13:14)
[2023-07-28] MEDS ORDERED: ACET-2605 PO (13:14)
[2023-07-28] MEDS ORDERED: LEVO500T90 GT (13:14)
[2023-07-28] MEDS ORDERED: ALLA266C2 TP (13:14)
[2023-07-28] MEDS ORDERED: ASCO500L2 GT (13:14)
[2023-07-28] MEDS ORDERED: VALP250S4 GT (13:14)
[2023-07-28] MEDS ORDERED: METO25TA6 GT (13:14)
[2023-07-28] MEDS ORDERED: ALBU2.5V13 IH (13:14)
[2023-07-28] MEDS ORDERED: MULT9LIQ6 GT (13:14)
[2023-07-28] MEDS ORDERED: CRAN425C6 GT (13:14)
[2023-07-28] MEDS ORDERED: ALBUT2 IH (13:14)
[2023-07-28] MEDS ORDERED: PANT40SU2 GT (13:14)
[2023-07-28] MEDS ORDERED: FERR220E2 GT (13:14)
[2023-07-28] MEDS ORDERED: ZINC50TA69 GT (13:14)
[2023-07-28] MEDS ORDERED: LEVE100S GT (13:14)
[2023-07-28] MEDS ORDERED: ALBU2.5V38 IH (13:15)
[2023-07-28] MEDS ORDERED: MAGNESIUM HYDROXIDE 30 ML UDC PO PRN (18:00)
[2023-07-28] MEDS ORDERED: Z GUARD REMEDY 4 OZ OINT TP PRN (18:00)
[2023-07-28] MEDS ORDERED: ONDANSETRON HCL/PF 4 MG/2 ML VIAL IVP PRN (18:00)
[2023-07-28] MEDS ORDERED: ZOLPIDEM TARTRATE 5 MG TABLET PO PRN (18:00)
[2023-07-28] MEDS ORDERED: MAG HYDROX/AL HYDROX/SIMETH 30 ML UDC PO PRN (18:00)
[2023-07-28] MEDS ORDERED: BISACODYL SUPP (10 MG) 10 MG/SUPP.RECT SUPP.RECT RC PRN (18:30)
[2023-07-28] MEDS ORDERED: ALBUTEROL FS 2.5 MG/3 ML VIAL.NEB IH PRN (18:30)
[2023-07-28] MEDS ORDERED: MAGNESIUM HYDROXIDE 30 ML UDC GT PRN (18:30)
[2023-07-28 20:00] VITALS: BP 106/63; TEMP 97.6; O2SAT 95
[2023-07-28 20:05] LABS: OCCULT BLOOD STOOL NEGATIVE (NEGATIVE)
[2023-07-28 20:07] LABS: IRON, SERUM 39 ug/dl (50-175); TOTAL IRON BINDING CAPACITY 228 ug/dl (250-450)
[2023-07-28 20:43] LABS: BAND % (MANUAL) 1 % (0.0-5.0); LYMPHOCYTES % (MANUAL) 20 % (16-48); MONOCYTES % (MANUAL) 5 % (0-11.0); NEUTROPHILS % (MANUAL) 74 (42-76); PLATELET ESTIMATE INCREASED
[2023-07-28 20:44] LABS: ANISOCYTOSIS 1+; ROULEAUX 1+; STOMATOCYTES 1+
[2023-07-28 20:58] LABS: APPEARANCE,URINE CLOUDY (CLEAR); BILIRUBIN,URINE NEGATIVE (NEGATIVE); BLOOD, URINE 1+ Ery/uL (NEGATIVE); COLOR,URINE YELLOW (YELLOW); KETONES,URINE NEGATIVE (NEGATIVE); LEUKOCYTE ESTERASE ,URINE 1+ (NEGATIVE); NITRITE, URINE NEGATIVE (NEGATIVE); PH,URINE 7.5 (5.0-8.0); PROTEIN,URINE 3+ mg/dl (NEGATIVE); UGLUCOSE NEGATIVE (NEGATIVE); UROBILINOGEN,URINE 0.2 EU/dL (0.2)
[2023-07-28 21:04] LABS: ADD URINE CULTURE YES; BACTERIA,URINE 2+ /HPF (None Seen); MUCUS,URINE Moderate /LPF (None Seen); SQUAMOUS EPITHELIAL CELL,UR 0-2 /HPF (None Seen); URINE AMORPHOUS PHOSPHATES Many /HPF (None Seen)
[2023-07-28] MEDS: IV NS 0.9% 1,000 ML IV PRN (21:05)
[2023-07-28] MEDS: CHLORHEXIDINE GLUCONATE 15 ML UDC MM SCH ×2 (21:34→22:09)
[2023-07-28] MEDS: VALPROIC ACID 250 MG/5 ML UDC GT SCH (22:09)
[2023-07-29] VITALS (8 sets, daily range): BP systolic 88–101; BP diastolic 49–65; TEMP 97.6–99.1; O2SAT 96–99
[2023-07-29] MEDS: BACLOFEN (10 MG) 10 MG TABLET GT SCH ×4 (01:27→17:56)
[2023-07-29] MEDS: VALPROIC ACID 250 MG/5 ML UDC GT SCH ×3 (05:52→20:53)
[2023-07-29] MEDS ORDERED: SILVER NITRATE APPLICATOR 1 EA BOX TP ONE (07:30)
[2023-07-29] MEDS: ALBUTEROL FS 2.5 MG/3 ML VIAL.NEB IH SCH ×3 (07:37→19:30)
[2023-07-29 08:53] LABS: BASOPHILS % (AUTO) 0.2 % (0.0-2.0); EOSINOPHILS % (AUTO) 0.1 % (0.0-6.0); HEMATOCRIT 22 % (33-45); HEMOGLOBIN 7.2 g/dL (11.5-14.8); LYMPHOCYTES # (AUTO) 1.7 K/uL (0.8-4.8); LYMPHOCYTES % (AUTO) 17.7 % (20.0-44.0); MEAN CORPUSCULAR HEMOGLOBIN 31 PG (26.0-33.0); MEAN CORPUSCULAR HGB CONC 32 g/dl (31.0-36.0); MEAN CORPUSCULAR VOLUME 98 fL (82-100); MONOCYTES # (AUTO) 0.7 K/uL (0.1-1.30); MONOCYTES % (AUTO) 7.5 % (2.0-12.0); NEUTROPHILS # (AUTO) 7.1 K/uL (1.8-8.9); NEUTROPHILS % (AUTO) 74.5 % (43.0-81.0); PLATELET COUNT (AUTO) 686 K/uL (150-450); RED BLOOD CELL COUNT(AUTO) 2.28 MIL/uL (4.0-5.2); RED CELL DISTRIBUTION WIDTH 16.1 % (11.5-15.0); WHITE BLOOD COUNT (AUTO) 9.6 K/uL (4.3-11.0)
[2023-07-29 09:10] LABS: BILIRUBIN,DIRECT 0.1 mg/dL (0.0-0.2); BILIRUBIN,TOTAL 0.3 mg/dL (0.2-1.0); CALCIUM, SERUM 10.3 mg/dL (8.5-10.1); CREATININE 1.9 mg/dL (0.6-1.3); MAGNESIUM 3.3 mg/dL (1.8-2.4); PHOSPHORUS 5.9 mg/dL (2.5-4.9); POTASSIUM 3.2 mmol/L (3.5-5.1); TOTAL PROTEIN, SERUM 9.5 g/dL (6.4-8.2)
[2023-07-29 09:23] LABS: ALBUMIN 1.8 g/dL (3.4-5.0)
[2023-07-29] MEDS: LEVETIRACETAM SOL (5 ML) 100 MG/ML UDC GT SCH ×2 (09:57→17:12)
[2023-07-29] MEDS: CHLORHEXIDINE GLUCONATE 15 ML UDC MM SCH ×2 (09:57→20:53)
[2023-07-29] MEDS: PANTOPRAZOLE 40 MG VIAL IV SCH (09:59)
[2023-07-29 11:27] LABS: OSMOLALITY,SERUM 320 mOS/kg (278-305)
[2023-07-29 11:57] LABS: THYROID STIMULATING HORMONE 2.309 uIU/mL (0.358-3.74)
[2023-07-29] MEDS: IV NS 0.9% 1,000 ML IV PRN (13:30)
[2023-07-29] MEDS: JEVITY 1.2 CAL 1,000 ML BOTTLE GT PRN (13:30)
[2023-07-29] MEDS: ARGININE/GLUTAMINE/CALCIUM BMB 1 EACH POWD.PACK GT SCH (17:12)
[2023-07-29] MEDS: DAKINS QUARTER STRENGTH (0.125%) 480 ML BOTTLE TOP SCH (17:13)
[2023-07-30] VITALS (15 sets, daily range): BP systolic 94–107; BP diastolic 50–65; TEMP 97.4–99; O2SAT 93–100
[2023-07-30] MEDS: BACLOFEN (10 MG) 10 MG TABLET GT SCH ×5 (00:02→23:08)
[2023-07-30] MEDS: IV NS 0.9% 1,000 ML IV PRN ×2 (00:10→14:32)
[2023-07-30] MEDS: ALBUTEROL FS 2.5 MG/3 ML VIAL.NEB IH SCH ×4 (01:29→19:16)
[2023-07-30] MEDS: VALPROIC ACID 250 MG/5 ML UDC GT SCH ×3 (04:52→21:08)
[2023-07-30] MEDS: PANTOPRAZOLE 40 MG VIAL IV SCH (09:33)
[2023-07-30] MEDS: ARGININE/GLUTAMINE/CALCIUM BMB 1 EACH POWD.PACK GT SCH ×2 (09:38→17:06)
[2023-07-30] MEDS: PROSOURCE / PROSTAT (PYXIS) 30 ML UDC GT SCH (09:38)
[2023-07-30] MEDS: CHLORHEXIDINE GLUCONATE 15 ML UDC MM SCH ×2 (09:38→21:08)
[2023-07-30] MEDS: LEVETIRACETAM SOL (5 ML) 100 MG/ML UDC GT SCH ×2 (09:38→17:06)
[2023-07-30] MEDS: DAKINS QUARTER STRENGTH (0.125%) 480 ML BOTTLE TOP SCH (09:39)
[2023-07-30 13:10] LABS: CALCIUM, SERUM 9.8 mg/dL (8.5-10.1); CREATININE 1.5 mg/dL (0.6-1.3); MAGNESIUM 2.8 mg/dL (1.8-2.4); PHOSPHORUS 3.9 mg/dL (2.5-4.9); POTASSIUM 3.4 mmol/L (3.5-5.1)
[2023-07-30 13:17] LABS: THYROID STIMULATING HORMONE 1.306 uIU/mL (0.358-3.74); URIC ACID 11.8 mg/dL (2.6-7.2)
[2023-07-30 16:09] LABS: CREATININE, URINE 31.1 MG/DL (30.0-125.0); URINE TOTAL PROTEIN 87.3 mg/dL (0-11.9)
[2023-07-30] MEDS: JEVITY 1.2 CAL 1,000 ML BOTTLE GT PRN (18:04)
[2023-07-30] MEDS: CEFEPIME 1 GM in IV D5W 50 ML IV SCH (20:19)
[2023-07-30] MEDS: VANCOMYCIN 1.25 GM in IV D5W 250 ML IV SCH (21:07)
[2023-07-31] VITALS (12 sets, daily range): BP systolic 101–112; BP diastolic 55–64; TEMP 98.7–99.3; O2SAT 94–99
[2023-07-31] MEDS: ALBUTEROL FS 2.5 MG/3 ML VIAL.NEB IH SCH ×4 (00:36→19:46)
[2023-07-31] MEDS: BACLOFEN (10 MG) 10 MG TABLET GT SCH ×3 (05:08→17:02)
[2023-07-31] MEDS: VALPROIC ACID 250 MG/5 ML UDC GT SCH ×3 (05:08→20:18)
[2023-07-31] MEDS: IV NS 0.9% 1,000 ML IV PRN (05:37)
[2023-07-31] MEDS: CEFEPIME 1 GM in IV D5W 50 ML IV SCH ×2 (09:50→20:12)
[2023-07-31] MEDS: CHLORHEXIDINE GLUCONATE 15 ML UDC MM SCH ×2 (09:54→21:53)
[2023-07-31] MEDS: LEVETIRACETAM SOL (5 ML) 100 MG/ML UDC GT SCH ×2 (09:54→17:02)
[2023-07-31] MEDS: ARGININE/GLUTAMINE/CALCIUM BMB 1 EACH POWD.PACK GT SCH ×2 (09:54→17:05)
[2023-07-31] MEDS: PROSOURCE / PROSTAT (PYXIS) 30 ML UDC GT SCH (09:54)
[2023-07-31] MEDS: PANTOPRAZOLE 40 MG VIAL IV SCH (09:54)
[2023-07-31] MEDS: DAKINS QUARTER STRENGTH (0.125%) 480 ML BOTTLE TOP SCH (09:55)
[2023-07-31 14:06] LABS: BASOPHILS % (AUTO) 0.4 % (0.0-2.0); CREATINE KINASE, TOTAL 6 U/L (26-192); EOSINOPHILS % (AUTO) 0.2 % (0.0-6.0); LYMPHOCYTES # (AUTO) 1.6 K/uL (0.8-4.8); LYMPHOCYTES % (AUTO) 14.4 % (20.0-44.0); MEAN CORPUSCULAR HEMOGLOBIN 31 PG (26.0-33.0); MEAN CORPUSCULAR HGB CONC 30 g/dl (31.0-36.0); MEAN CORPUSCULAR VOLUME 102 fL (82-100); MONOCYTES # (AUTO) 0.9 K/uL (0.1-1.30); MONOCYTES % (AUTO) 7.6 % (2.0-12.0); NEUTROPHILS # (AUTO) 8.7 K/uL (1.8-8.9); NEUTROPHILS % (AUTO) 77.4 % (43.0-81.0); PLATELET COUNT (AUTO) 536 K/uL (150-450); RED CELL DISTRIBUTION WIDTH 17.6 % (11.5-15.0); WHITE BLOOD COUNT (AUTO) 11.2 K/uL (4.3-11.0)
[2023-07-31 14:07] LABS: ALANINE AMINOTRANSFERASE < 6 U/L (12-78); ALBUMIN 1.7 g/dL (3.4-5.0); ALKALINE PHOSPHATASE 58 U/L (46-116); ASPARTATE AMINOTRANSFERASE 8 U/L (15-37); BILIRUBIN,TOTAL 0.3 mg/dL (0.2-1.0); CALCIUM, SERUM 9.8 mg/dL (8.5-10.1); CARBON DIOXIDE 30 mmol/L (21-32); CHLORIDE 110 mmol/L (98-107); CREATININE 1.2 mg/dL (0.6-1.3); GLUCOSE 131 mg/dL (74-106); MAGNESIUM 2.4 mg/dL (1.8-2.4); PHOSPHORUS 2.3 mg/dL (2.5-4.9); SODIUM SERUM 147 mmol/L (136-145); TOTAL PROTEIN, SERUM 8.7 g/dL (6.4-8.2); UREA NITROGEN, BLOOD 68 mg/dL (7-18)
[2023-07-31 14:08] LABS: RED BLOOD CELL COUNT(AUTO) 1.67 MIL/uL (4.0-5.2)
[2023-07-31 14:12] LABS: HEMATOCRIT 17 % (33-45); HEMOGLOBIN 5.2 g/dL (11.5-14.8)
[2023-07-31] MEDS: JEVITY 1.2 CAL 1,000 ML BOTTLE GT PRN (14:33)
[2023-07-31 15:52] LABS: ANISOCYTOSIS 1+; LYMPHOCYTES % (MANUAL) 15 % (16-48); MONOCYTES % (MANUAL) 4 % (0-11.0); NEUTROPHILS % (MANUAL) 81 (42-76); PLATELET ESTIMATE INCREASED; ROULEAUX 1+
[2023-07-31] MEDS ORDERED: NEUTRA PHOS 1 POWD.PACKET GT ONE (17:00)
[2023-07-31] MEDS: VANCOMYCIN 1.25 GM in IV D5W 250 ML IV SCH (21:50)
[2023-08-01] VITALS (16 sets, daily range): BP systolic 90–121; BP diastolic 53–83; TEMP 98.1–100.6; O2SAT 95–98
[2023-08-01] MEDS: BACLOFEN (10 MG) 10 MG TABLET GT SCH ×4 (01:17→17:34)
[2023-08-01] MEDS: ALBUTEROL FS 2.5 MG/3 ML VIAL.NEB IH SCH ×4 (02:06→19:46)
[2023-08-01] MEDS: VALPROIC ACID 250 MG/5 ML UDC GT SCH ×3 (05:45→20:03)
[2023-08-01] MEDS: IV NS 0.9% 1,000 ML IV PRN (05:50)
[2023-08-01 06:34] LABS: CALCIUM, SERUM 10.2 mg/dL (8.5-10.1); CREATININE 1.1 mg/dL (0.6-1.3); POTASSIUM 3.4 mmol/L (3.5-5.1)
[2023-08-01] MEDS ORDERED: LIDOCAINE 1%-EPI 1:100,000 20 ML VIAL TP ONE (07:30)
[2023-08-01 08:06] LABS: PTH, INTACT 5 pg/mL (15-65)
[2023-08-01] MEDS: CEFEPIME 1 GM in IV D5W 50 ML IV SCH ×2 (08:52→19:31)
[2023-08-01 08:59] LABS: BASOPHILS # (AUTO) 0.1 K/uL (0.0-0.2); BASOPHILS % (AUTO) 0.6 % (0.0-2.0); EOSINOPHILS # (AUTO) 0.1 K/uL (0.0-0.7); EOSINOPHILS % (AUTO) 0.5 % (0.0-6.0); HEMATOCRIT 21 % (33-45); LYMPHOCYTES # (AUTO) 1.7 K/uL (0.8-4.8); LYMPHOCYTES % (AUTO) 14.1 % (20.0-44.0); MEAN CORPUSCULAR HEMOGLOBIN 31 PG (26.0-33.0); MEAN CORPUSCULAR HGB CONC 31 g/dl (31.0-36.0); MEAN CORPUSCULAR VOLUME 99 fL (82-100); MONOCYTES # (AUTO) 0.9 K/uL (0.1-1.30); MONOCYTES % (AUTO) 7.4 % (2.0-12.0); NEUTROPHILS # (AUTO) 9.1 K/uL (1.8-8.9); NEUTROPHILS % (AUTO) 77.4 % (43.0-81.0); PLATELET COUNT (AUTO) 509 K/uL (150-450); RED BLOOD CELL COUNT(AUTO) 2.13 MIL/uL (4.0-5.2); RED CELL DISTRIBUTION WIDTH 19.7 % (11.5-15.0); WHITE BLOOD COUNT (AUTO) 11.8 K/uL (4.3-11.0)
[2023-08-01 09:22] LABS: HEMOGLOBIN 6.5 g/dL (11.5-14.8)
[2023-08-01] MEDS: PANTOPRAZOLE 40 MG/PACK PACK GT SCH (09:39)
[2023-08-01] MEDS: CHLORHEXIDINE GLUCONATE 15 ML UDC MM SCH ×2 (09:39→20:03)
[2023-08-01] MEDS: LEVETIRACETAM SOL (5 ML) 100 MG/ML UDC GT SCH ×2 (09:39→17:34)
[2023-08-01] MEDS: ARGININE/GLUTAMINE/CALCIUM BMB 1 EACH POWD.PACK GT SCH ×2 (09:40→17:34)
[2023-08-01] MEDS: PROSOURCE / PROSTAT (PYXIS) 30 ML UDC GT SCH (09:40)
[2023-08-01] MEDS: DAKINS QUARTER STRENGTH (0.125%) 480 ML BOTTLE TOP SCH (09:41)
[2023-08-01] MEDS ORDERED: POTASSIUM CHLORIDE 20 MEQ POWDER PACKET NG ONE (11:30)
[2023-08-01 12:06] LABS: *SPE A/G RATIO 0.4 (0.7-1.7); *SPE ALBUMIN 2.2 g/dL (2.9-4.4); *SPE ALPHA-1-GLOBULIN 0.5 g/dL (0.0-0.4); *SPE ALPHA-2-GLOBULIN 1.2 g/dL (0.4-1.0); *SPE GLOBULIN, TOTAL 5.6 g/dL (2.2-3.9); *SPE M-SPIKE Not Observed g/dL (Not Observed); *SPE PROTEIN TOTAL 7.8 g/dL (6.0-8.5); *SPEGAMMA GLOBULIN 2.9 g/dL (0.4-1.8)
[2023-08-01 12:07] LABS: BAND % (MANUAL) 1 % (0.0-5.0); LYMPHOCYTES % (MANUAL) 11 % (16-48); MONOCYTES % (MANUAL) 5 % (0-11.0); MYELOCYTES % 2 % (0-0); NEUTROPHILS % (MANUAL) 81 (42-76); PLATELET ESTIMATE INCREASED
[2023-08-01] MEDS: ACETAMINOPHEN 325 MG TABLET PO PRN ×2 (15:28→22:11)
[2023-08-01] MEDS: VANCOMYCIN 1.25 GM in IV D5W 250 ML IV SCH (20:30)
[2023-08-01] MEDS: JEVITY 1.2 CAL 1,000 ML BOTTLE GT PRN (20:40)
[2023-08-02] VITALS (19 sets, daily range): BP systolic 91–122; BP diastolic 57–70; TEMP 97.9–100.6; O2SAT 96–99
[2023-08-02] MEDS: BACLOFEN (10 MG) 10 MG TABLET GT SCH ×4 (00:55→17:25)
[2023-08-02] MEDS: ALBUTEROL FS 2.5 MG/3 ML VIAL.NEB IH SCH ×4 (01:06→19:57)
[2023-08-02] MEDS: VALPROIC ACID 250 MG/5 ML UDC GT SCH ×3 (04:38→22:09)
[2023-08-02 07:18] LABS: BASOPHILS # (AUTO) 0.2 K/uL (0.0-0.2); BASOPHILS % (AUTO) 1.1 % (0.0-2.0); EOSINOPHILS # (AUTO) 0.2 K/uL (0.0-0.7); EOSINOPHILS % (AUTO) 1.5 % (0.0-6.0); HEMATOCRIT 27 % (33-45); HEMOGLOBIN 8.3 g/dL (11.5-14.8); LYMPHOCYTES # (AUTO) 2.7 K/uL (0.8-4.8); LYMPHOCYTES % (AUTO) 18.2 % (20.0-44.0); MEAN CORPUSCULAR HEMOGLOBIN 30 PG (26.0-33.0); MEAN CORPUSCULAR HGB CONC 31 g/dl (31.0-36.0); MEAN CORPUSCULAR VOLUME 99 fL (82-100); MONOCYTES # (AUTO) 1.1 K/uL (0.1-1.30); MONOCYTES % (AUTO) 7.2 % (2.0-12.0); NEUTROPHILS # (AUTO) 10.5 K/uL (1.8-8.9); PLATELET COUNT (AUTO) 489 K/uL (150-450); RED BLOOD CELL COUNT(AUTO) 2.72 MIL/uL (4.0-5.2); RED CELL DISTRIBUTION WIDTH 20.7 % (11.5-15.0); WHITE BLOOD COUNT (AUTO) 14.6 K/uL (4.3-11.0)
[2023-08-02 07:54] LABS: CALCIUM, SERUM 10.1 mg/dL (8.5-10.1); CREATININE 0.9 mg/dL (0.6-1.3); MAGNESIUM 2.6 mg/dL (1.8-2.4); PHOSPHORUS 3.1 mg/dL (2.5-4.9); POTASSIUM 3.9 mmol/L (3.5-5.1)
[2023-08-02] MEDS: CEFEPIME 1 GM in IV D5W 50 ML IV SCH ×2 (09:02→20:18)
[2023-08-02] MEDS: LEVETIRACETAM SOL (5 ML) 100 MG/ML UDC GT SCH ×2 (09:03→16:40)
[2023-08-02] MEDS: CHLORHEXIDINE GLUCONATE 15 ML UDC MM SCH ×2 (09:03→22:08)
[2023-08-02] MEDS: PANTOPRAZOLE 40 MG/PACK PACK GT SCH (09:03)
[2023-08-02] MEDS: PROSOURCE / PROSTAT (PYXIS) 30 ML UDC GT SCH (09:04)
[2023-08-02] MEDS: ARGININE/GLUTAMINE/CALCIUM BMB 1 EACH POWD.PACK GT SCH ×2 (09:04→16:41)
[2023-08-02] MEDS: DAKINS QUARTER STRENGTH (0.125%) 480 ML BOTTLE TOP SCH (09:05)
[2023-08-02] MEDS: VANCOMYCIN 1 GM in IV D5W 250ml IV SCH (13:19)
[2023-08-02] MEDS: ACETAMINOPHEN 325 MG TABLET PO PRN ×2 (17:25→22:10)
[2023-08-02] MEDS: JEVITY 1.2 CAL 1,000 ML BOTTLE GT PRN (22:58)
[2023-08-03] VITALS (11 sets, daily range): BP systolic 110–140; BP diastolic 53–84; TEMP 98.1–99.5; O2SAT 96–100
[2023-08-03] MEDS: BACLOFEN (10 MG) 10 MG TABLET GT SCH ×4 (00:10→17:30)
[2023-08-03] MEDS: VANCOMYCIN 1 GM in IV D5W 250ml IV SCH ×2 (01:00→21:32)
[2023-08-03] MEDS: ALBUTEROL FS 2.5 MG/3 ML VIAL.NEB IH SCH ×4 (02:03→19:30)
[2023-08-03] MEDS: VALPROIC ACID 250 MG/5 ML UDC GT SCH ×3 (05:40→20:22)
[2023-08-03 07:02] LABS: CALCIUM, SERUM 10.3 mg/dL (8.5-10.1)
[2023-08-03] MEDS: DAKINS QUARTER STRENGTH (0.125%) 480 ML BOTTLE TOP SCH (08:32)
[2023-08-03] MEDS: PANTOPRAZOLE 40 MG/PACK PACK GT SCH (08:32)
[2023-08-03] MEDS: LEVETIRACETAM SOL (5 ML) 100 MG/ML UDC GT SCH ×2 (08:32→17:30)
[2023-08-03] MEDS: CHLORHEXIDINE GLUCONATE 15 ML UDC MM SCH ×2 (08:32→20:22)
[2023-08-03] MEDS: CEFEPIME 1 GM in IV D5W 50 ML IV SCH (08:32)
[2023-08-03] MEDS: ARGININE/GLUTAMINE/CALCIUM BMB 1 EACH POWD.PACK GT SCH ×2 (08:33→17:30)
[2023-08-03] MEDS: PROSOURCE / PROSTAT (PYXIS) 30 ML UDC GT SCH (08:33)
[2023-08-03] MEDS ORDERED: IV D5W 500 ML IV ONE (11:30)
[2023-08-03] MEDS: MEROPENEM 500 MG in IV NS 0.9% 50 ML IV SCH ×2 (12:55→20:25)
[2023-08-03] MEDS: JEVITY 1.2 CAL 1,000 ML BOTTLE GT PRN (17:37)
[2023-08-04] VITALS (13 sets, daily range): BP systolic 97–113; BP diastolic 73–93; TEMP 97.9–98.8; O2SAT 96–100
[2023-08-04] MEDS: BACLOFEN (10 MG) 10 MG TABLET GT SCH ×4 (00:33→17:26)
[2023-08-04] MEDS: ALBUTEROL FS 2.5 MG/3 ML VIAL.NEB IH SCH ×4 (01:22→19:32)
[2023-08-04] MEDS: VALPROIC ACID 250 MG/5 ML UDC GT SCH ×3 (04:42→21:00)
[2023-08-04] MEDS: MEROPENEM 500 MG in IV NS 0.9% 50 ML IV SCH ×3 (04:43→20:45)
[2023-08-04 06:49] LABS: BASOPHILS # (AUTO) 0.1 K/uL (0.0-0.2); BASOPHILS % (AUTO) 0.9 % (0.0-2.0); EOSINOPHILS # (AUTO) 0.1 K/uL (0.0-0.7); EOSINOPHILS % (AUTO) 1.3 % (0.0-6.0); HEMATOCRIT 28 % (33-45); HEMOGLOBIN 8.9 g/dL (11.5-14.8); LYMPHOCYTES # (AUTO) 0.7 K/uL (0.8-4.8); LYMPHOCYTES % (AUTO) 10.3 % (20.0-44.0); MEAN CORPUSCULAR HEMOGLOBIN 31 PG (26.0-33.0); MEAN CORPUSCULAR HGB CONC 32 g/dl (31.0-36.0); MEAN CORPUSCULAR VOLUME 98 fL (82-100); MONOCYTES # (AUTO) 0.5 K/uL (0.1-1.30); MONOCYTES % (AUTO) 6.3 % (2.0-12.0); NEUTROPHILS # (AUTO) 5.9 K/uL (1.8-8.9); NEUTROPHILS % (AUTO) 81.2 % (43.0-81.0); PLATELET COUNT (AUTO) 398 K/uL (150-450); RED BLOOD CELL COUNT(AUTO) 2.84 MIL/uL (4.0-5.2); RED CELL DISTRIBUTION WIDTH 19.7 % (11.5-15.0); WHITE BLOOD COUNT (AUTO) 7.2 K/uL (4.3-11.0)
[2023-08-04 07:12] LABS: CALCIUM, SERUM 9.8 mg/dL (8.5-10.1); INR 1.07 (0.91-1.10); MAGNESIUM 2.2 mg/dL (1.8-2.4); PARTIAL THROMBOPLASTIN TIME 28.4 SEC (24.3-34.3); PHOSPHORUS 3.4 mg/dL (2.5-4.9); PROTHROMBIN TIME 11.3 SECS (9.2-11.1)
[2023-08-04] MEDS: PROSOURCE / PROSTAT (PYXIS) 30 ML UDC GT SCH (08:10)
[2023-08-04] MEDS: ARGININE/GLUTAMINE/CALCIUM BMB 1 EACH POWD.PACK GT SCH ×2 (08:10→16:06)
[2023-08-04] MEDS: LEVETIRACETAM SOL (5 ML) 100 MG/ML UDC GT SCH ×2 (08:10→16:06)
[2023-08-04] MEDS: PANTOPRAZOLE 40 MG/PACK PACK GT SCH (08:11)
[2023-08-04] MEDS: CHLORHEXIDINE GLUCONATE 15 ML UDC MM SCH ×2 (08:11→21:00)
[2023-08-04] MEDS: DAKINS QUARTER STRENGTH (0.125%) 480 ML BOTTLE TOP SCH (08:31)
[2023-08-04] MEDS ORDERED: IV D5W 500 ML IV ONE (11:30)
[2023-08-04] MEDS: IV D5W 1,000 ML IV PRN (13:06)
[2023-08-04] MEDS: VANCOMYCIN 1 GM in IV D5W 250ml IV SCH ×2 (22:00→22:30)
[2023-08-05] VITALS (12 sets, daily range): BP systolic 110–142; BP diastolic 52–98; TEMP 97.9–98.2; O2SAT 98–100
[2023-08-05] MEDS: ALBUTEROL FS 2.5 MG/3 ML VIAL.NEB IH SCH ×4 (01:17→20:16)
[2023-08-05] MEDS: VALPROIC ACID 250 MG/5 ML UDC GT SCH ×3 (05:00→20:17)
[2023-08-05] MEDS: MEROPENEM 500 MG in IV NS 0.9% 50 ML IV SCH ×3 (05:07→20:17)
[2023-08-05 05:42] LABS: BASOPHILS # (AUTO) 0.1 K/uL (0.0-0.2); BASOPHILS % (AUTO) 1.3 % (0.0-2.0); EOSINOPHILS # (AUTO) 0.1 K/uL (0.0-0.7); EOSINOPHILS % (AUTO) 2.1 % (0.0-6.0); HEMATOCRIT 30 % (33-45); HEMOGLOBIN 9.4 g/dL (11.5-14.8); LYMPHOCYTES % (AUTO) 16.2 % (20.0-44.0); MEAN CORPUSCULAR HEMOGLOBIN 31 PG (26.0-33.0); MEAN CORPUSCULAR HGB CONC 31 g/dl (31.0-36.0); MEAN CORPUSCULAR VOLUME 100 fL (82-100); MONOCYTES # (AUTO) 0.4 K/uL (0.1-1.30); MONOCYTES % (AUTO) 6.7 % (2.0-12.0); NEUTROPHILS # (AUTO) 4.5 K/uL (1.8-8.9); NEUTROPHILS % (AUTO) 73.7 % (43.0-81.0); PLATELET COUNT (AUTO) 352 K/uL (150-450); RED BLOOD CELL COUNT(AUTO) 3.03 MIL/uL (4.0-5.2); RED CELL DISTRIBUTION WIDTH 20.2 % (11.5-15.0); WHITE BLOOD COUNT (AUTO) 6.1 K/uL (4.3-11.0)
[2023-08-05] MEDS: BACLOFEN (10 MG) 10 MG TABLET GT SCH ×5 (06:00→23:37)
[2023-08-05 06:01] LABS: CALCIUM, SERUM 10.1 mg/dL (8.5-10.1); CREATININE 0.9 mg/dL (0.6-1.3); MAGNESIUM 2.2 mg/dL (1.8-2.4); PHOSPHORUS 3.1 mg/dL (2.5-4.9); POTASSIUM 4.2 mmol/L (3.5-5.1)
[2023-08-05] MEDS: ARGININE/GLUTAMINE/CALCIUM BMB 1 EACH POWD.PACK GT SCH ×2 (08:27→17:00)
[2023-08-05] MEDS: LEVETIRACETAM SOL (5 ML) 100 MG/ML UDC GT SCH ×2 (08:27→17:00)
[2023-08-05] MEDS: PROSOURCE / PROSTAT (PYXIS) 30 ML UDC GT SCH (08:28)
[2023-08-05] MEDS: PANTOPRAZOLE 40 MG/PACK PACK GT SCH (08:28)
[2023-08-05] MEDS: CHLORHEXIDINE GLUCONATE 15 ML UDC MM SCH ×2 (08:28→20:17)
[2023-08-05] MEDS: DAKINS QUARTER STRENGTH (0.125%) 480 ML BOTTLE TOP SCH (09:05)
[2023-08-05] MEDS: IV D5W 1,000 ML IV PRN (09:09)
[2023-08-05] MEDS ORDERED: FLUMAZENIL 0.5 MG VIAL IV PRN (11:30)
[2023-08-05] MEDS ORDERED: FENTANYL PF 250MCG/5ML AMPUL IV PRN (11:30)
[2023-08-05] MEDS ORDERED: NALOXONE PREFILLED SYRINGE 2 MG/2 ML SYRINGE IV PRN (11:30)
[2023-08-05] MEDS ORDERED: MIDAZOLAM HCL 2 MG/2ML VIAL IV PRN (11:30)
[2023-08-05] MEDS ORDERED: MAG HYDROX/AL HYDROX/SIMETH 30 ML UDC GT PRN (18:29)
[2023-08-05] MEDS ORDERED: MAGNESIUM HYDROXIDE 30 ML UDC GT PRN (18:29)
[2023-08-05] MEDS: VANCOMYCIN 1 GM in IV D5W 250ml IV SCH (21:11)
[2023-08-05 22:09] LABS: PREGNANCY TEST URINE QUAL NEGATIVE (NEGATIVE)
[2023-08-06] VITALS (10 sets, daily range): BP systolic 100–106; BP diastolic 65–66; TEMP 98–98.6; O2SAT 94–100
[2023-08-06] MEDS: ALBUTEROL FS 2.5 MG/3 ML VIAL.NEB IH SCH ×4 (02:05→20:04)
[2023-08-06] MEDS: VALPROIC ACID 250 MG/5 ML UDC GT SCH ×3 (04:45→21:32)
[2023-08-06] MEDS: MEROPENEM 500 MG in IV NS 0.9% 50 ML IV SCH ×3 (04:46→21:15)
[2023-08-06] MEDS: BACLOFEN (10 MG) 10 MG TABLET GT SCH ×3 (06:11→17:31)
[2023-08-06 07:40] LABS: CALCIUM, SERUM 9.6 mg/dL (8.5-10.1); POTASSIUM 4.4 mmol/L (3.5-5.1)
[2023-08-06] MEDS: PROSOURCE / PROSTAT (PYXIS) 30 ML UDC GT SCH (08:50)
[2023-08-06] MEDS: PANTOPRAZOLE 40 MG/PACK PACK GT SCH (08:50)
[2023-08-06] MEDS: LEVETIRACETAM SOL (5 ML) 100 MG/ML UDC GT SCH ×2 (08:50→17:31)
[2023-08-06] MEDS: CHLORHEXIDINE GLUCONATE 15 ML UDC MM SCH ×2 (08:50→21:32)
[2023-08-06] MEDS: ARGININE/GLUTAMINE/CALCIUM BMB 1 EACH POWD.PACK GT SCH ×2 (08:50→17:32)
[2023-08-06] MEDS: DAKINS QUARTER STRENGTH (0.125%) 480 ML BOTTLE TOP SCH (08:51)
[2023-08-06] MEDS: JEVITY 1.2 CAL 1,000 ML BOTTLE GT PRN (09:09)
[2023-08-06] MEDS: VANCOMYCIN 1 GM in IV D5W 250ml IV SCH (16:43)
[2023-08-06] MEDS: ACETAMINOPHEN 325 MG TABLET PO PRN (17:31)
[2023-08-07] VITALS (11 sets, daily range): BP systolic 107–111; BP diastolic 56–96; TEMP 98.8–99.1; O2SAT 94–100
[2023-08-07] MEDS: BACLOFEN (10 MG) 10 MG TABLET GT SCH ×5 (00:45→23:18)
[2023-08-07] MEDS: ALBUTEROL FS 2.5 MG/3 ML VIAL.NEB IH SCH ×4 (02:09→20:33)
[2023-08-07] MEDS: JEVITY 1.2 CAL 1,000 ML BOTTLE GT PRN (04:23)
[2023-08-07] MEDS: MEROPENEM 500 MG in IV NS 0.9% 50 ML IV SCH ×3 (05:12→21:23)
[2023-08-07] MEDS: VALPROIC ACID 250 MG/5 ML UDC GT SCH ×3 (05:14→23:18)
[2023-08-07] MEDS: CHLORHEXIDINE GLUCONATE 15 ML UDC MM SCH ×2 (09:26→23:18)
[2023-08-07] MEDS: PROSOURCE / PROSTAT (PYXIS) 30 ML UDC GT SCH (09:26)
[2023-08-07] MEDS: LEVETIRACETAM SOL (5 ML) 100 MG/ML UDC GT SCH ×2 (09:26→17:09)
[2023-08-07] MEDS: DAKINS QUARTER STRENGTH (0.125%) 480 ML BOTTLE TOP SCH (09:26)
[2023-08-07] MEDS: ARGININE/GLUTAMINE/CALCIUM BMB 1 EACH POWD.PACK GT SCH ×2 (09:26→17:09)
[2023-08-07] MEDS: PANTOPRAZOLE 40 MG/PACK PACK GT SCH (09:26)
[2023-08-07] MEDS: ACETAMINOPHEN 325 MG TABLET PO PRN (11:12)
[2023-08-07 11:54] LABS: BASOPHILS # (AUTO) 0.1 K/uL (0.0-0.2); BASOPHILS % (AUTO) 0.9 % (0.0-2.0); EOSINOPHILS # (AUTO) 0.1 K/uL (0.0-0.7); EOSINOPHILS % (AUTO) 1.7 % (0.0-6.0); HEMATOCRIT 25 % (33-45); LYMPHOCYTES # (AUTO) 1.5 K/uL (0.8-4.8); LYMPHOCYTES % (AUTO) 17.5 % (20.0-44.0); MEAN CORPUSCULAR HEMOGLOBIN 31 PG (26.0-33.0); MEAN CORPUSCULAR HGB CONC 32 g/dl (31.0-36.0); MEAN CORPUSCULAR VOLUME 98 fL (82-100); MONOCYTES # (AUTO) 0.5 K/uL (0.1-1.30); MONOCYTES % (AUTO) 5.9 % (2.0-12.0); NEUTROPHILS # (AUTO) 6.2 K/uL (1.8-8.9); PLATELET COUNT (AUTO) 312 K/uL (150-450); RED BLOOD CELL COUNT(AUTO) 2.58 MIL/uL (4.0-5.2); WHITE BLOOD COUNT (AUTO) 8.4 K/uL (4.3-11.0)
[2023-08-07 12:02] LABS: CALCIUM, SERUM 9.3 mg/dL (8.5-10.1); CREATININE 0.9 mg/dL (0.6-1.3); PHOSPHORUS 3.2 mg/dL (2.5-4.9); POTASSIUM 3.8 mmol/L (3.5-5.1)
[2023-08-08] VITALS (11 sets, daily range): BP systolic 97–100; BP diastolic 56–59; TEMP 98.1–100; O2SAT 94–100
[2023-08-08] MEDS: ALBUTEROL FS 2.5 MG/3 ML VIAL.NEB IH SCH ×4 (01:22→20:07)
[2023-08-08] MEDS: VANCOMYCIN 1 GM in IV D5W 250ml IV SCH (02:15)
[2023-08-08] MEDS: JEVITY 1.2 CAL 1,000 ML BOTTLE GT PRN ×2 (04:42→22:47)
[2023-08-08] MEDS: MEROPENEM 500 MG in IV NS 0.9% 50 ML IV SCH (04:42)
[2023-08-08] MEDS: VALPROIC ACID 250 MG/5 ML UDC GT SCH ×3 (05:15→21:43)
[2023-08-08] MEDS: BACLOFEN (10 MG) 10 MG TABLET GT SCH ×3 (05:15→17:10)
[2023-08-08 07:14] LABS: CALCIUM, SERUM 8.9 mg/dL (8.5-10.1); CREATININE 0.8 mg/dL (0.6-1.3); POTASSIUM 4.3 mmol/L (3.5-5.1)
[2023-08-08] MEDS: LEVETIRACETAM SOL (5 ML) 100 MG/ML UDC GT SCH ×2 (08:41→17:10)
[2023-08-08] MEDS: PANTOPRAZOLE 40 MG/PACK PACK GT SCH (08:41)
[2023-08-08] MEDS: CHLORHEXIDINE GLUCONATE 15 ML UDC MM SCH ×2 (08:41→21:45)
[2023-08-08] MEDS: PROSOURCE / PROSTAT (PYXIS) 30 ML UDC GT SCH (08:43)
[2023-08-08] MEDS: ARGININE/GLUTAMINE/CALCIUM BMB 1 EACH POWD.PACK GT SCH ×2 (08:43→17:09)
[2023-08-08] MEDS: DAKINS QUARTER STRENGTH (0.125%) 480 ML BOTTLE TOP SCH (08:44)
[2023-08-08] MEDS: MEROPENEM 1 G in IV NS 0.9% 100 ML IV SCH ×2 (12:27→21:39)
[2023-08-09] VITALS (13 sets, daily range): BP systolic 101–110; BP diastolic 57–66; TEMP 98.1–99.7; O2SAT 94–99
[2023-08-09] MEDS: BACLOFEN (10 MG) 10 MG TABLET GT SCH ×4 (00:39→17:40)
[2023-08-09] MEDS: ALBUTEROL FS 2.5 MG/3 ML VIAL.NEB IH SCH ×4 (00:42→20:05)
[2023-08-09] MEDS: VALPROIC ACID 250 MG/5 ML UDC GT SCH ×3 (05:31→20:32)
[2023-08-09] MEDS: MEROPENEM 1 G in IV NS 0.9% 100 ML IV SCH ×3 (05:33→20:24)
[2023-08-09 07:03] LABS: BASOPHILS # (AUTO) 0.1 K/uL (0.0-0.2); BASOPHILS % (AUTO) 0.9 % (0.0-2.0); EOSINOPHILS # (AUTO) 0.1 K/uL (0.0-0.7); EOSINOPHILS % (AUTO) 2.2 % (0.0-6.0); HEMATOCRIT 24 % (33-45); HEMOGLOBIN 7.7 g/dL (11.5-14.8); LYMPHOCYTES # (AUTO) 1.8 K/uL (0.8-4.8); LYMPHOCYTES % (AUTO) 27.4 % (20.0-44.0); MEAN CORPUSCULAR HEMOGLOBIN 33 PG (26.0-33.0); MEAN CORPUSCULAR HGB CONC 32 g/dl (31.0-36.0); MEAN CORPUSCULAR VOLUME 101 fL (82-100); MONOCYTES # (AUTO) 0.6 K/uL (0.1-1.30); MONOCYTES % (AUTO) 9.4 % (2.0-12.0); NEUTROPHILS # (AUTO) 3.9 K/uL (1.8-8.9); NEUTROPHILS % (AUTO) 60.1 % (43.0-81.0); PLATELET COUNT (AUTO) 280 K/uL (150-450); RED BLOOD CELL COUNT(AUTO) 2.36 MIL/uL (4.0-5.2); RED CELL DISTRIBUTION WIDTH 19.9 % (11.5-15.0); WHITE BLOOD COUNT (AUTO) 6.5 K/uL (4.3-11.0)
[2023-08-09 07:32] LABS: CALCIUM, SERUM 9.4 mg/dL (8.5-10.1); CREATININE 0.9 mg/dL (0.6-1.3); MAGNESIUM 2.1 mg/dL (1.8-2.4); POTASSIUM 4.2 mmol/L (3.5-5.1)
[2023-08-09] MEDS: PANTOPRAZOLE 40 MG/PACK PACK GT SCH (09:51)
[2023-08-09] MEDS: CHLORHEXIDINE GLUCONATE 15 ML UDC MM SCH ×2 (09:51→20:32)
[2023-08-09] MEDS: LEVETIRACETAM SOL (5 ML) 100 MG/ML UDC GT SCH ×2 (09:51→17:40)
[2023-08-09] MEDS: ARGININE/GLUTAMINE/CALCIUM BMB 1 EACH POWD.PACK GT SCH ×2 (10:05→17:40)
[2023-08-09] MEDS: DAKINS QUARTER STRENGTH (0.125%) 480 ML BOTTLE TOP SCH (10:06)
[2023-08-09] MEDS: PROSOURCE / PROSTAT (PYXIS) 30 ML UDC GT SCH (10:06)
[2023-08-09] MEDS: VANCOMYCIN 1 GM in IV D5W 250ml IV SCH (14:25)
[2023-08-09] MEDS: JEVITY 1.2 CAL 1,000 ML BOTTLE GT PRN (17:55)
[2023-08-10] VITALS (11 sets, daily range): BP systolic 99–126; BP diastolic 56–82; TEMP 98.1–99.7; O2SAT 94–100
[2023-08-10] MEDS: BACLOFEN (10 MG) 10 MG TABLET GT SCH ×4 (00:37→17:27)
[2023-08-10] MEDS: ALBUTEROL FS 2.5 MG/3 ML VIAL.NEB IH SCH ×4 (02:03→19:46)
[2023-08-10] MEDS: VALPROIC ACID 250 MG/5 ML UDC GT SCH ×3 (04:27→20:55)
[2023-08-10] MEDS: MEROPENEM 1 G in IV NS 0.9% 100 ML IV SCH ×3 (04:29→20:55)
[2023-08-10 07:26] LABS: CALCIUM, SERUM 9.1 mg/dL (8.5-10.1); CREATININE 0.9 mg/dL (0.6-1.3); POTASSIUM 3.9 mmol/L (3.5-5.1)
[2023-08-10] MEDS: LEVETIRACETAM SOL (5 ML) 100 MG/ML UDC GT SCH ×2 (09:29→16:17)
[2023-08-10] MEDS: PANTOPRAZOLE 40 MG/PACK PACK GT SCH (09:29)
[2023-08-10] MEDS: PROSOURCE / PROSTAT (PYXIS) 30 ML UDC GT SCH ×4 (09:29→16:17)
[2023-08-10] MEDS: CHLORHEXIDINE GLUCONATE 15 ML UDC MM SCH ×2 (09:29→20:55)
[2023-08-10] MEDS: ARGININE/GLUTAMINE/CALCIUM BMB 1 EACH POWD.PACK GT SCH ×2 (09:37→16:17)
[2023-08-10] MEDS ORDERED: JEVITY 1.2 CAL 1,000 ML BOTTLE GT PRN (10:30)
[2023-08-10] MEDS: DAKINS QUARTER STRENGTH (0.125%) 480 ML BOTTLE TOP SCH (10:43)
[2023-08-10] MEDS: ACETAMINOPHEN 325 MG TABLET PO PRN (20:14)
[2023-08-11] VITALS (8 sets, daily range): BP systolic 95–117; BP diastolic 58–67; TEMP 97.7–99; O2SAT 96–100
[2023-08-11] MEDS: BACLOFEN (10 MG) 10 MG TABLET GT SCH ×4 (00:50→17:49)
[2023-08-11] MEDS: ALBUTEROL FS 2.5 MG/3 ML VIAL.NEB IH SCH ×3 (01:56→13:40)
[2023-08-11] MEDS: MEROPENEM 1 G in IV NS 0.9% 100 ML IV SCH ×2 (05:10→12:58)
[2023-08-11] MEDS: VALPROIC ACID 250 MG/5 ML UDC GT SCH ×2 (05:11→12:59)
[2023-08-11] MEDS: ARGININE/GLUTAMINE/CALCIUM BMB 1 EACH POWD.PACK GT SCH ×2 (08:42→17:49)
[2023-08-11] MEDS: CHLORHEXIDINE GLUCONATE 15 ML UDC MM SCH (08:43)
[2023-08-11] MEDS: LEVETIRACETAM SOL (5 ML) 100 MG/ML UDC GT SCH ×2 (08:43→17:49)
[2023-08-11] MEDS: PROSOURCE / PROSTAT (PYXIS) 30 ML UDC GT SCH ×3 (08:43→17:49)
[2023-08-11] MEDS: PANTOPRAZOLE 40 MG/PACK PACK GT SCH (08:43)
[2023-08-11] MEDS: DAKINS QUARTER STRENGTH (0.125%) 480 ML BOTTLE TOP SCH (08:57)
[2023-08-11 09:10] LABS: BASOPHILS # (AUTO) 0.1 K/uL (0.0-0.2); EOSINOPHILS # (AUTO) 0.1 K/uL (0.0-0.7); EOSINOPHILS % (AUTO) 2.5 % (0.0-6.0); HEMATOCRIT 24 % (33-45); HEMOGLOBIN 7.4 g/dL (11.5-14.8); LYMPHOCYTES % (AUTO) 35.9 % (20.0-44.0); MEAN CORPUSCULAR HEMOGLOBIN 32 PG (26.0-33.0); MEAN CORPUSCULAR HGB CONC 31 g/dl (31.0-36.0); MEAN CORPUSCULAR VOLUME 102 fL (82-100); MONOCYTES # (AUTO) 0.5 K/uL (0.1-1.30); MONOCYTES % (AUTO) 9.8 % (2.0-12.0); NEUTROPHILS # (AUTO) 2.8 K/uL (1.8-8.9); NEUTROPHILS % (AUTO) 50.8 % (43.0-81.0); PLATELET COUNT (AUTO) 273 K/uL (150-450); RED BLOOD CELL COUNT(AUTO) 2.32 MIL/uL (4.0-5.2); RED CELL DISTRIBUTION WIDTH 19.9 % (11.5-15.0); WHITE BLOOD COUNT (AUTO) 5.5 K/uL (4.3-11.0)
[2023-08-11 09:25] LABS: CALCIUM, SERUM 8.9 mg/dL (8.5-10.1); CREATININE 0.7 mg/dL (0.6-1.3); MAGNESIUM 2.3 mg/dL (1.8-2.4); PHOSPHORUS 3.1 mg/dL (2.5-4.9); POTASSIUM 4.2 mmol/L (3.5-5.1)
== END 2023-08-11 18:57 | DRG 951 ==
LOC: ER 12:00 → TELE 16:33 → MED 07-30 16:23
PROVIDERS: ADMIT Nurse Practitioner Acute Care; ATTEND Nurse Practitioner Acute Care
PROC: 30233N1 Transfusion of Nonautologous Red Blood Cells into Peripheral Vein, Percutaneous Approach (ICD-10-PCS; 2023-07-31)
PROC: 0QB10ZZ Excision of Sacrum, Open Approach (ICD-10-PCS; principal; 2023-08-01)
PROC: 05H533Z Insertion of Infusion Device into Right Subclavian Vein, Percutaneous Approach (ICD-10-PCS; 2023-08-02)
PROC: B546ZZA Ultrasonography of Right Subclavian Vein, Guidance (ICD-10-PCS; 2023-08-02)
PROC: 0QB10ZZ Excision of Sacrum, Open Approach (ICD-10-PCS; 2023-08-10)
DX: N73.9 Female pelvic inflammatory disease, unspecified (principal); N17.0 Acute kidney failure with tubular necrosis; J96.20 Acute and chronic respiratory failure, unspecified whether with hypoxia or hypercapnia; G93.41 Metabolic encephalopathy; E43 Unspecified severe protein-calorie malnutrition; L89.154 Pressure ulcer of sacral region, stage 4; R53.2 Functional quadriplegia; D68.69 Other thrombophilia; D63.8 Anemia in other chronic diseases classified elsewhere; I12.9 Hypertensive chronic kidney disease with stage 1 through stage 4 chronic kidney disease, or unspecified chronic kidney disease; N18.9 Chronic kidney disease, unspecified; D75.839 Thrombocytosis, unspecified; E78.5 Hyperlipidemia, unspecified; E87.1 Hypo-osmolality and hyponatremia; E87.8 Other disorders of electrolyte and fluid balance, not elsewhere classified; E88.09 Other disorders of plasma-protein metabolism, not elsewhere classified; G40.909 Epilepsy, unspecified, not intractable, without status epilepticus; I25.10 Atherosclerotic heart disease of native coronary artery without angina pectoris; K21.9 Gastro-esophageal reflux disease without esophagitis; K56.41 Fecal impaction; Z86.74 Personal history of sudden cardiac arrest; Z93.1 Gastrostomy status; Z86.73 Personal history of transient ischemic attack (TIA), and cerebral infarction without residual deficits; Z79.82 Long term (current) use of aspirin; R13.10 Dysphagia, unspecified; M24.522 Contracture, left elbow; M24.521 Contracture, right elbow; N13.6 Pyonephrosis; B95.2 Enterococcus as the cause of diseases classified elsewhere; E86.9 Volume depletion, unspecified; M46.28 Osteomyelitis of vertebra, sacral and sacrococcygeal region; K52.89 Other specified noninfective gastroenteritis and colitis; B96.20 Unspecified Escherichia coli [E. coli] as the cause of diseases classified elsewhere; Z16.12 Extended spectrum beta lactamase (ESBL) resistance; E87.6 Hypokalemia; Z16.24 Resistance to multiple antibiotics; Z79.899 Other long term (current) drug therapy
CPT/HCPCS: 31720; 36410; 36415; 71045-TC; 72192-TC; 76770-TC; 76856-TC; 80048-TC; 80053-TC; 80061-TC; 80076-TC; 80202-TC; 81001; 82272-TC; 82533; 82550-TC; 82570-TC; 83540-TC; 83735-TC; 83935-TC; 83970; 84100-TC; 84155; 84165; 84300-TC; 84443-TC; 84550-TC; 84703-TC; 85025-TC; 85610-TC; 85730-TC; 86850-TC; 87086-TC; 94799-TC; A4223; A4623; A6253; A6403; A7526; C9113; G0378; J0692; J1953; J2185; J3370; J3490; J7030; J7050; J7060; J7070; P9016

== ENCOUNTER 2023-08-11 19:40 | Emergency (ER) | payer OTHER ==
[~2023-08-11] VITALS: Ht 162.6 cm; Wt 69.9 kg
[~2023-08-11 19:40] MED LIST changes: +ACET-2605 PO; +ACET-868 GT; +ALBU2.5V13 IH; +ALBU2.5V38 IH; +ALBUT2 IH; +ALLA266C2 TP; +ASCO500L2 GT; +CRAN425C6 GT; +FERR220E2 GT; +LEVO500T90 GT; +METO25TA6 GT; +MULT9LIQ6 GT; +PANT40SU2 GT; +ZINC50TA69 GT
[2023-08-11 20:00] VITALS: TEMP 97.7
[2023-08-11 20:31] LABS: BASOPHILS # (AUTO) 0.1 K/uL (0.0-0.2); BASOPHILS % (AUTO) 0.8 % (0.0-2.0); EOSINOPHILS # (AUTO) 0.1 K/uL (0.0-0.7); EOSINOPHILS % (AUTO) 2.1 % (0.0-6.0); HEMATOCRIT 26 % (33-45); HEMOGLOBIN 8.3 g/dL (11.5-14.8); LYMPHOCYTES # (AUTO) 2.1 K/uL (0.8-4.8); LYMPHOCYTES % (AUTO) 29.9 % (20.0-44.0); MEAN CORPUSCULAR HEMOGLOBIN 32 PG (26.0-33.0); MEAN CORPUSCULAR HGB CONC 32 g/dl (31.0-36.0); MEAN CORPUSCULAR VOLUME 101 fL (82-100); MONOCYTES # (AUTO) 0.4 K/uL (0.1-1.30); NEUTROPHILS # (AUTO) 4.4 K/uL (1.8-8.9); NEUTROPHILS % (AUTO) 61.2 % (43.0-81.0); PLATELET COUNT (AUTO) 327 K/uL (150-450); RED BLOOD CELL COUNT(AUTO) 2.61 MIL/uL (4.0-5.2); RED CELL DISTRIBUTION WIDTH 19.7 % (11.5-15.0); WHITE BLOOD COUNT (AUTO) 7.2 K/uL (4.3-11.0)
[2023-08-11 21:17] LABS: ALANINE AMINOTRANSFERASE 8 U/L (12-78); ALBUMIN 2.5 g/dL (3.4-5.0); ALKALINE PHOSPHATASE 67 U/L (46-116); ASPARTATE AMINOTRANSFERASE 16 U/L (15-37); BILIRUBIN,DIRECT 0.2 mg/dL (0.0-0.2); BILIRUBIN,TOTAL 0.7 mg/dL (0.2-1.0); CALCIUM, SERUM 9.7 mg/dL (8.5-10.1); CARBON DIOXIDE 27 mmol/L (21-32); CHLORIDE 109 mmol/L (98-107); CREATININE 0.8 mg/dL (0.6-1.3); GLUCOSE 103 mg/dL (74-106); NT-PRO BNP 284 pg/mL (0-125); POTASSIUM 4.3 mmol/L (3.5-5.1); SODIUM SERUM 142 mmol/L (136-145); TOTAL PROTEIN, SERUM 9.4 g/dL (6.4-8.2); UREA NITROGEN, BLOOD 51 mg/dL (7-18)
[2023-08-11] MEDS ORDERED: ACETAMINOPHEN 325 MG TABLET PO PRN (22:00)
[2023-08-11] MEDS ORDERED: GLUCERNA 1.2 1,000 ML BOTTLE NG PRN (22:00)
[2023-08-11] MEDS ORDERED: ONDANSETRON HCL/PF 4 MG/2 ML VIAL IVP PRN (22:00)
[2023-08-11] MEDS ORDERED: MAG HYDROX/AL HYDROX/SIMETH 30 ML UDC PO PRN (22:00)
[2023-08-11] MEDS ORDERED: ALBUTEROL FS 2.5 MG/3 ML VIAL.NEB IH PRN (22:00)
[2023-08-11] MEDS ORDERED: MAGNESIUM HYDROXIDE 30 ML UDC PO PRN (22:00)
[2023-08-11] MEDS ORDERED: ZOLPIDEM TARTRATE 5 MG TABLET PO PRN (22:00)
[2023-08-11] MEDS ORDERED: Z GUARD REMEDY 4 OZ OINT TP PRN (22:00)
[2023-08-12] MEDS ORDERED: BACLOFEN (10 MG) 10 MG TABLET GT SCH
[2023-08-12] MEDS ORDERED: ALBUTEROL FS 2.5 MG/3 ML VIAL.NEB IH SCH
[2023-08-12 00:43] VITALS: BP 145/69; O2SAT 97
[2023-08-12] MEDS ORDERED: VALPROIC ACID 250 MG/5 ML UDC GT SCH (05:00)
[2023-08-12] MEDS ORDERED: MEROPENEM 1 G in IV NS 0.9% 100 ML IV SCH (05:00)
[2023-08-12] MEDS ORDERED: LEVETIRACETAM SOL (5 ML) 100 MG/ML UDC GT SCH (09:00)
[2023-08-12] MEDS ORDERED: CHLORHEXIDINE GLUCONATE 15 ML UDC MM SCH (09:00)
[2023-08-12] MEDS ORDERED: METOPROLOL TARTRATE 25 MG TABLET GT SCH (09:00)
[2023-08-12] MEDS ORDERED: Medication Not On Formulary EA (Cranberry Extract (Cranberry) 850 MG) GT SCH (09:00)
[2023-08-12] MEDS ORDERED: PANTOPRAZOLE 40 MG/PACK PACK GT SCH (09:00)
[2023-08-12] MEDS ORDERED: ASCORBIC ACID 500 MG TABLET GT SCH (18:00)
[2023-08-12] MEDS ORDERED: FERROUS SULFATE UDC 300 MG/5 ML UDC GT SCH (18:00)
[2023-08-12] MEDS ORDERED: ZINC SULFATE 220 MG CAPSULE GT SCH (18:00)
[2023-08-12] MEDS ORDERED: CYANOCOBALAMIN 100 MCG TABLET GT SCH (18:00)
[2023-08-12] MEDS ORDERED: ASPIRIN 81 MG TAB.CHEW GT SCH (18:00)
[2023-08-12] MEDS ORDERED: LACTOBACILLUS RHAMNOSUS GG 1 EACH CAP.SPRINK GT SCH (18:00)
[2023-08-12] MEDS ORDERED: MULTIVITAMIN/LUTEIN/MINERALS 1 TAB GT SCH (18:00)
[2023-08-13] MEDS ORDERED: FOLIC ACID 1 MG TABLET GT SCH (09:00)
== END 2023-08-12 01:21 | disposition short-term general hospital (02) ==
LOC: ER 20:06
DX: U07.1 COVID-19 (principal); I10 Essential (primary) hypertension; Z79.82 Long term (current) use of aspirin; Z79.899 Other long term (current) drug therapy
CPT/HCPCS: 99291; 87426; 93005; 71045 ×2; 85025; 80048; 80076; 36415; 84484; 83880; C9803

== ENCOUNTER 2024-02-22 05:16 | Inpatient (IN) | payer OTHER ==
[2024-02-22] VITALS (11 sets, daily range): BP systolic 93–114; BP diastolic 54–83; TEMP 98.4–99.7; O2SAT 96–100
[~2024-02-22] VITALS: Ht 162.6 cm; Wt 74.8 kg
[~2024-02-22 05:16] MED LIST changes: -ALBU2.5V13 IH; -ALBU8.5H8 IH; -CEFD300C3 PO; -FERR300L GT; -LEVO500T90 GT; -METO25TA20 GT; -PANT40TA49 GT
[2024-02-22 06:33] LABS: BASOPHILS # (AUTO) 0.1 K/uL (0.0-0.2); BASOPHILS % (AUTO) 0.5 % (0.0-2.0); EOSINOPHILS # (AUTO) 0.4 K/uL (0.0-0.7); EOSINOPHILS % (AUTO) 2.3 % (0.0-6.0); LYMPHOCYTES # (AUTO) 1.6 K/uL (0.8-4.8); LYMPHOCYTES % (AUTO) 10.3 % (20.0-44.0); MEAN CORPUSCULAR HEMOGLOBIN 31 PG (26.0-33.0); MEAN CORPUSCULAR HGB CONC 32 g/dl (31.0-36.0); MEAN CORPUSCULAR VOLUME 97 fL (82-100); MONOCYTES % (AUTO) 6.4 % (2.0-12.0); NEUTROPHILS # (AUTO) 12.5 K/uL (1.8-8.9); NEUTROPHILS % (AUTO) 80.5 % (43.0-81.0); PLATELET COUNT (AUTO) 572 K/uL (150-450); RED CELL DISTRIBUTION WIDTH 18.2 % (11.5-15.0); WHITE BLOOD COUNT (AUTO) 15.6 K/uL (4.3-11.0)
[2024-02-22 06:38] LABS: RED BLOOD CELL COUNT(AUTO) 1.82 MIL/uL (4.0-5.2)
[2024-02-22 06:39] LABS: HEMATOCRIT 18 % (33-45); HEMOGLOBIN 5.7 g/dL (11.5-14.8)
[2024-02-22 06:46] LABS: CARBON DIOXIDE 26 mmol/L (21-32); CHLORIDE 98 mmol/L (98-107); CREATININE 3.3 mg/dL (0.6-1.3); GLUCOSE 99 mg/dL (74-106); POTASSIUM 5.6 mmol/L (3.5-5.1); SODIUM SERUM 137 mmol/L (136-145)
[2024-02-22 06:48] LABS: INR 1.02 (0.91-1.10); PARTIAL THROMBOPLASTIN TIME 29.7 SEC (24.3-34.3); PROTHROMBIN TIME 10.8 SECS (9.2-11.1)
[2024-02-22 06:51] LABS: UREA NITROGEN, BLOOD 103 mg/dL (7-18)
[2024-02-22 06:57] LABS: NT-PRO BNP 1721 pg/mL (0-125)
[2024-02-22] MEDS ORDERED: PANTOPRAZOLE 40 MG VIAL ONE (07:23)
[2024-02-22] MEDS ORDERED: COLL30OI TP (07:30)
[2024-02-22] MEDS ORDERED: NUTR250L50 GT (07:30)
[2024-02-22] MEDS: PANTOPRAZOLE 40 MG VIAL IV ONE (07:39)
[2024-02-22] MEDS: IV NS 0.9% 500 ML BAG IV ONE (07:39)
[2024-02-22] MEDS: PANTOPRAZOLE 80 MG in IV NS 0.9% 100 ML IV ONE (08:15)
[2024-02-22 09:54] LABS: ANISOCYTOSIS 1+; BASOPHILS % (MANUAL) 0 % (0.0-2.0); EOSINOPHILS % (MANUAL) 2 % (0-4); HYPOCHROMASIA 1+; LYMPHOCYTES % (MANUAL) 9 % (16-48); MONOCYTES % (MANUAL) 4 % (0-11.0); NEUTROPHILS % (MANUAL) 84 (42-76); OVALOCYTES 1+; PLATELET ESTIMATE ADEQUATE; STOMATOCYTES 1+
[2024-02-22] MEDS ORDERED: ACETAMINOPHEN 325 MG TABLET PO PRN (11:30)
[2024-02-22] MEDS ORDERED: JEVITY 1.5 CAL LIQUID 1,000 ML BOTTLE GT PRN (11:30)
[2024-02-22] MEDS ORDERED: Z GUARD REMEDY 4 OZ OINT TP PRN (11:30)
[2024-02-22] MEDS ORDERED: ONDANSETRON HCL/PF 4 MG/2 ML VIAL IVP PRN (11:30)
[2024-02-22] MEDS: ALBUTEROL FS 2.5 MG/3 ML VIAL.NEB IH SCH (12:00)
[2024-02-22] MEDS: SODIUM POLYSTYRENE SULF. PWD 15 GM UDC PO ONE (12:15)
[2024-02-22] MEDS: IV NS 0.9% 1,000 ML IV PRN (12:16)
[2024-02-22] MEDS: VALPROIC ACID 250 MG/5 ML UDC GT SCH (12:16)
[2024-02-22] MEDS: BACLOFEN (10 MG) 10 MG TABLET GT SCH (12:16)
[2024-02-22] MEDS: LEVETIRACETAM SOL (5 ML) 100 MG/ML UDC GT SCH (12:16)
[2024-02-22] MEDS: VANCOMYCIN HCL 1.25 GM in IV D5W 250 ML IV ONE (13:36)
[2024-02-22] MEDS: CEFEPIME 2 GM in IV D5W 100 ML IV SCH (13:36)
[2024-02-22 14:33] LABS: CALCIUM, SERUM 10.2 mg/dL (8.5-10.1); CREATININE 3.4 mg/dL (0.6-1.3); POTASSIUM 4.8 mmol/L (3.5-5.1)
[2024-02-22] MEDS: ALBUTEROL HALF STRENGTH 1.25 MG/3 ML VIAL.NEB NEB SCH (20:08)
[2024-02-22] MEDS: CHLORHEXIDINE GLUCONATE 15 ML UDC MM SCH (21:32)
[2024-02-23] VITALS (25 sets, daily range): BP systolic 93–112; BP diastolic 25–84; TEMP 97.6–99.5; O2SAT 94–100
[2024-02-23 01:58] LABS: HEMOGLOBIN 5.1 g/dL (11.5-14.8)
[2024-02-23 03:08] LABS: HEMOGLOBIN 4.8 g/dL (11.5-14.8)
[2024-02-23 07:13] LABS: OCCULT BLOOD STOOL POSITIVE (NEGATIVE)
[2024-02-23 07:21] LABS: APPEARANCE,URINE SLIGHTLY CLOUDY (CLEAR); BILIRUBIN,URINE NEGATIVE (NEGATIVE); BLOOD, URINE 2+ Ery/uL (NEGATIVE); COLOR,URINE YELLOW (YELLOW); KETONES,URINE NEGATIVE (NEGATIVE); LEUKOCYTE ESTERASE ,URINE 3+ (NEGATIVE); NITRITE, URINE NEGATIVE (NEGATIVE); PROTEIN,URINE 2+ mg/dl (NEGATIVE); UGLUCOSE NEGATIVE (NEGATIVE); UROBILINOGEN,URINE 0.2 EU/dL (0.2)
[2024-02-23 07:22] LABS: ADD URINE CULTURE YES; BACTERIA,URINE Moderate /HPF (None Seen); SQUAMOUS EPITHELIAL CELL,UR Rare /HPF (None Seen); WBC,URINE 51-80 /HPF (0-3)
[2024-02-23] MEDS: PANTOPRAZOLE 40 MG/PACK PACK GT SCH (08:15)
[2024-02-23] MEDS: FOLIC ACID 1 MG TABLET GT SCH (08:15)
[2024-02-23] MEDS: THERAHONEY GEL 1.5 OZ TUBE TP SCH ×2 (08:16→15:30)
[2024-02-23 09:56] LABS: EOSINOPHIL,URINE None Seen
[2024-02-23 10:09] LABS: BASOPHILS # (AUTO) 0.1 K/uL (0.0-0.2); BASOPHILS % (AUTO) 0.9 % (0.0-2.0); EOSINOPHILS # (AUTO) 0.3 K/uL (0.0-0.7); EOSINOPHILS % (AUTO) 2.7 % (0.0-6.0); LYMPHOCYTES # (AUTO) 0.7 K/uL (0.8-4.8); LYMPHOCYTES % (AUTO) 5.9 % (20.0-44.0); MEAN CORPUSCULAR HEMOGLOBIN 28 PG (26.0-33.0); MEAN CORPUSCULAR HGB CONC 32 g/dl (31.0-36.0); MEAN CORPUSCULAR VOLUME 89 fL (82-100); MONOCYTES # (AUTO) 0.7 K/uL (0.1-1.30); MONOCYTES % (AUTO) 5.6 % (2.0-12.0); NEUTROPHILS % (AUTO) 84.9 % (43.0-81.0); PLATELET COUNT (AUTO) 426 K/uL (150-450); RED BLOOD CELL COUNT(AUTO) 2.25 MIL/uL (4.0-5.2); RED CELL DISTRIBUTION WIDTH 26.8 % (11.5-15.0); WHITE BLOOD COUNT (AUTO) 11.8 K/uL (4.3-11.0)
[2024-02-23 10:38] LABS: HEMATOCRIT 20 % (33-45); HEMOGLOBIN 6.4 g/dL (11.5-14.8)
[2024-02-23 10:40] LABS: RHEUMATOID FACTOR SCREEN NEGATIVE (NEGATIVE)
[2024-02-23 11:54] LABS: BILIRUBIN,DIRECT 0.1 mg/dL (0.0-0.2); BILIRUBIN,TOTAL 0.4 mg/dL (0.2-1.0); CALCIUM, SERUM 9.5 mg/dL (8.5-10.1); CREATININE 3.2 mg/dL (0.6-1.3); MAGNESIUM 3.8 mg/dL (1.8-2.4); PHOSPHORUS 6.1 mg/dL (2.5-4.9); POTASSIUM 4.1 mmol/L (3.5-5.1); TOTAL PROTEIN, SERUM 8.5 g/dL (6.4-8.2)
[2024-02-23 12:02] LABS: C-REACTIVE PROTEIN 20.23 mg/dL (0.0-0.30)
[2024-02-23 12:09] LABS: THYROID STIMULATING HORMONE 1.56 uIU/mL (0.358-3.74)
[2024-02-23 12:14] LABS: ANISOCYTOSIS 1+; BASOPHILS % (MANUAL) 0 % (0.0-2.0); EOSINOPHILS % (MANUAL) 2 % (0-4); HYPOCHROMASIA 1+; LYMPHOCYTES % (MANUAL) 7 % (16-48); MONOCYTES % (MANUAL) 4 % (0-11.0); NEUTROPHILS % (MANUAL) 87 (42-76); PLATELET ESTIMATE ADEQUATE
[2024-02-23 12:15] LABS: OVALOCYTES 1+; STOMATOCYTES 1+
[2024-02-23 12:21] LABS: ALBUMIN 1.4 g/dL (3.4-5.0)
[2024-02-23] MEDS: ACETAMINOPHEN 650 MG/20.3 ML UDC GT PRN (18:04)
[2024-02-23 23:31] LABS: HEMOGLOBIN 7.8 g/dL (11.5-14.8)
[2024-02-24] VITALS (12 sets, daily range): BP systolic 92–128; BP diastolic 62–97; TEMP 97.7–98.8; O2SAT 96–100
[2024-02-24] MEDS ORDERED: MEROPENEM 500 MG VIAL IV ONE (00:01)
[2024-02-24] MEDS: MEROPENEM 500 MG in IV NS 0.9% 50 ML IV ONE (00:22)
[2024-02-24] MEDS ORDERED: VANCOMYCIN 750 MG in IV D5W 250 ML IV SCH (01:00)
[2024-02-24] MEDS ORDERED: VANCOMYCIN 1 GM in IV D5W 250ml IV SCH (01:00)
[2024-02-24] MEDS: VANCOMYCIN 1 GM in IV D5W 250ml IV SCH (01:17)
[2024-02-24 07:10] LABS: BASOPHILS % (AUTO) 0.3 % (0.0-2.0); EOSINOPHILS # (AUTO) 0.5 K/uL (0.0-0.7); EOSINOPHILS % (AUTO) 4.1 % (0.0-6.0); HEMATOCRIT 23 % (33-45); HEMOGLOBIN 7.6 g/dL (11.5-14.8); LYMPHOCYTES % (AUTO) 9.1 % (20.0-44.0); MEAN CORPUSCULAR HEMOGLOBIN 30 PG (26.0-33.0); MEAN CORPUSCULAR HGB CONC 34 g/dl (31.0-36.0); MEAN CORPUSCULAR VOLUME 90 fL (82-100); MONOCYTES # (AUTO) 0.5 K/uL (0.1-1.30); MONOCYTES % (AUTO) 4.9 % (2.0-12.0); NEUTROPHILS # (AUTO) 9.1 K/uL (1.8-8.9); NEUTROPHILS % (AUTO) 81.6 % (43.0-81.0); PLATELET COUNT (AUTO) 370 K/uL (150-450); RED BLOOD CELL COUNT(AUTO) 2.51 MIL/uL (4.0-5.2); RED CELL DISTRIBUTION WIDTH 23.5 % (11.5-15.0); WHITE BLOOD COUNT (AUTO) 11.1 K/uL (4.3-11.0)
[2024-02-24 07:12] LABS: PTH, INTACT 13 pg/mL (15-65)
[2024-02-24 07:40] LABS: BILIRUBIN,TOTAL 0.3 mg/dL (0.2-1.0); CALCIUM, SERUM 9.2 mg/dL (8.5-10.1); CREATININE 3.2 mg/dL (0.6-1.3); MAGNESIUM 3.7 mg/dL (1.8-2.4); PHOSPHORUS 5.7 mg/dL (2.5-4.9); POTASSIUM 4.3 mmol/L (3.5-5.1); TOTAL PROTEIN, SERUM 8.6 g/dL (6.4-8.2)
[2024-02-24 07:50] LABS: ALBUMIN 1.3 g/dL (3.4-5.0)
[2024-02-24 08:07] LABS: FOLIC ACID > 20.0 ng/mL (>3.0); HEPATITIS B SURFACE AB Non Reactive (.)
[2024-02-24 09:42] LABS: INR 1.13 (0.91-1.10); PARTIAL THROMBOPLASTIN TIME 29.9 SEC (24.3-34.3); PROTHROMBIN TIME 11.9 SECS (9.2-11.1)
[2024-02-24] MEDS: NEPRO 1,000 ML BOTTLE GT PRN (10:07)
[2024-02-24 11:09] LABS: CANCER AG, 125 13.2 U/mL (0.0-38.1)
[2024-02-24 12:11] LABS: *ANA ANTI-CENTROMERE B AB <0.2 AI (0.0-0.9); *ANA ANTI-DNA(DS) AB, QN 1 IU/mL (0-9); *ANA ANTI-JO-1 <0.2 AI (0.0-0.9); *ANA ANTICHROMATIN ANTIBODY <0.2 AI (0.0-0.9); *ANA RNP ANTIBODIES 0.4 AI (0.0-0.9); *ANA SJOGREN'S ANTI-SS-A <0.2 AI (0.0-0.9); *ANA SJOGREN'S ANTI-SS-B <0.2 AI (0.0-0.9); *ANAANTI-SCLERODERMA-70 AB <0.2 AI (0.0-0.9); *ANASMITH AB <0.2 AI (0.0-0.9)
[2024-02-24] MEDS: MEROPENEM 500 MG in IV NS 0.9% 50 ML IV SCH (12:24)
[2024-02-24 15:07] LABS: FREE LAMBDA LT CHAIN SERUM 279.1 mg/L (5.7-26.3); KAPPA/LAMBDA RATIO SERUM 1.47 (0.26-1.65)
[2024-02-24] MEDS ORDERED: BISACODYL SUPP (10 MG) 10 MG/SUPP.RECT SUPP.RECT RC PRN (19:30)
[2024-02-24] MEDS: DOCUSATE SODIUM 100 MG CAPSULE PO SCH (23:27)
[2024-02-24] MEDS: POLYETHYLENE GLYCOL 3350 17 GM POWD.PACK PO SCH (23:27)
[2024-02-25] VITALS (11 sets, daily range): BP systolic 92–136; BP diastolic 64–80; TEMP 97.8–100.4; O2SAT 96–100
[2024-02-25 08:07] LABS: BASOPHILS # (AUTO) 0.1 K/uL (0.0-0.2); BASOPHILS % (AUTO) 0.5 % (0.0-2.0); EOSINOPHILS # (AUTO) 0.4 K/uL (0.0-0.7); EOSINOPHILS % (AUTO) 3.2 % (0.0-6.0); HEMATOCRIT 24 % (33-45); HEMOGLOBIN 7.9 g/dL (11.5-14.8); LYMPHOCYTES # (AUTO) 0.7 K/uL (0.8-4.8); LYMPHOCYTES % (AUTO) 5.6 % (20.0-44.0); MEAN CORPUSCULAR HEMOGLOBIN 30 PG (26.0-33.0); MEAN CORPUSCULAR HGB CONC 33 g/dl (31.0-36.0); MEAN CORPUSCULAR VOLUME 91 fL (82-100); MONOCYTES # (AUTO) 0.5 K/uL (0.1-1.30); MONOCYTES % (AUTO) 4.2 % (2.0-12.0); NEUTROPHILS # (AUTO) 10.6 K/uL (1.8-8.9); NEUTROPHILS % (AUTO) 86.5 % (43.0-81.0); PLATELET COUNT (AUTO) 394 K/uL (150-450); RED BLOOD CELL COUNT(AUTO) 2.65 MIL/uL (4.0-5.2); WHITE BLOOD COUNT (AUTO) 12.3 K/uL (4.3-11.0)
[2024-02-25 08:31] LABS: BILIRUBIN,TOTAL 0.3 mg/dL (0.2-1.0); CALCIUM, SERUM 9.1 mg/dL (8.5-10.1); CREATININE 2.9 mg/dL (0.6-1.3); MAGNESIUM 3.2 mg/dL (1.8-2.4); PHOSPHORUS 4.3 mg/dL (2.5-4.9); POTASSIUM 3.3 mmol/L (3.5-5.1); TOTAL PROTEIN, SERUM 8.7 g/dL (6.4-8.2)
[2024-02-25 08:37] LABS: ALBUMIN 1.4 g/dL (3.4-5.0)
[2024-02-25] MEDS: IV 1/2NS 1000 ML 1,000 ML IV PRN (10:37)
[2024-02-25] MEDS: POTASSIUM CHLORIDE 20 MEQ POWDER PACKET GT ONE (14:13)
[2024-02-26] VITALS (11 sets, daily range): BP systolic 119–156; BP diastolic 63–81; TEMP 98–98.6; O2SAT 95–100
[2024-02-26 07:30] LABS: BASOPHILS % (AUTO) 0.4 % (0.0-2.0); EOSINOPHILS # (AUTO) 0.6 K/uL (0.0-0.7); EOSINOPHILS % (AUTO) 6.6 % (0.0-6.0); HEMATOCRIT 27 % (33-45); HEMOGLOBIN 8.8 g/dL (11.5-14.8); LYMPHOCYTES # (AUTO) 1.2 K/uL (0.8-4.8); LYMPHOCYTES % (AUTO) 12.9 % (20.0-44.0); MEAN CORPUSCULAR HEMOGLOBIN 30 PG (26.0-33.0); MEAN CORPUSCULAR HGB CONC 33 g/dl (31.0-36.0); MEAN CORPUSCULAR VOLUME 91 fL (82-100); MONOCYTES # (AUTO) 0.6 K/uL (0.1-1.30); MONOCYTES % (AUTO) 6.2 % (2.0-12.0); NEUTROPHILS # (AUTO) 7.1 K/uL (1.8-8.9); NEUTROPHILS % (AUTO) 73.9 % (43.0-81.0); PLATELET COUNT (AUTO) 419 K/uL (150-450); RED CELL DISTRIBUTION WIDTH 23.1 % (11.5-15.0); WHITE BLOOD COUNT (AUTO) 9.6 K/uL (4.3-11.0)
[2024-02-26 08:03] LABS: ALBUMIN 1.6 g/dL (3.4-5.0); BILIRUBIN,TOTAL 0.4 mg/dL (0.2-1.0); CREATININE 2.7 mg/dL (0.6-1.3); MAGNESIUM 2.9 mg/dL (1.8-2.4); POTASSIUM 3.8 mmol/L (3.5-5.1); TOTAL PROTEIN, SERUM 9.5 g/dL (6.4-8.2)
[2024-02-26 08:11] LABS: CALCIUM, SERUM 9.9 mg/dL (8.5-10.1)
[2024-02-26 11:06] LABS: IMMUNOGLOBULIN A, SERUM 251 mg/dL (87-352); IMMUNOGLOBULIN G, SERUM 3154 mg/dL (586-1602); IMMUNOGLOBULIN M, SERUM 205 mg/dL (26-217)
[2024-02-27] VITALS (14 sets, daily range): BP systolic 103–150; BP diastolic 53–86; TEMP 96.9–99.5; O2SAT 95–100
[2024-02-27 07:46] LABS: BASOPHILS # (AUTO) 0.1 K/uL (0.0-0.2); BASOPHILS % (AUTO) 0.7 % (0.0-2.0); EOSINOPHILS # (AUTO) 0.6 K/uL (0.0-0.7); EOSINOPHILS % (AUTO) 6.8 % (0.0-6.0); HEMATOCRIT 24 % (33-45); HEMOGLOBIN 7.9 g/dL (11.5-14.8); LYMPHOCYTES # (AUTO) 1.2 K/uL (0.8-4.8); LYMPHOCYTES % (AUTO) 14.5 % (20.0-44.0); MEAN CORPUSCULAR HEMOGLOBIN 29 PG (26.0-33.0); MEAN CORPUSCULAR HGB CONC 32 g/dl (31.0-36.0); MEAN CORPUSCULAR VOLUME 91 fL (82-100); MONOCYTES # (AUTO) 0.5 K/uL (0.1-1.30); MONOCYTES % (AUTO) 6.6 % (2.0-12.0); NEUTROPHILS # (AUTO) 5.9 K/uL (1.8-8.9); NEUTROPHILS % (AUTO) 71.4 % (43.0-81.0); PLATELET COUNT (AUTO) 354 K/uL (150-450); RED BLOOD CELL COUNT(AUTO) 2.69 MIL/uL (4.0-5.2); RED CELL DISTRIBUTION WIDTH 22.3 % (11.5-15.0); WHITE BLOOD COUNT (AUTO) 8.3 K/uL (4.3-11.0)
[2024-02-27 09:09] LABS: *SPE A/G RATIO 0.3 (0.7-1.7); *SPE ALBUMIN 1.9 g/dL (2.9-4.4); *SPE ALPHA-1-GLOBULIN 0.5 g/dL (0.0-0.4); *SPE ALPHA-2-GLOBULIN 1.3 g/dL (0.4-1.0); *SPE GLOBULIN, TOTAL 5.8 g/dL (2.2-3.9); *SPE M-SPIKE Not Observed g/dL (Not Observed); *SPE PROTEIN TOTAL 7.7 g/dL (6.0-8.5); *SPEGAMMA GLOBULIN 2.9 g/dL (0.4-1.8)
[2024-02-27 10:42] LABS: BILIRUBIN,TOTAL 0.3 mg/dL (0.2-1.0); CALCIUM, SERUM 9.7 mg/dL (8.5-10.1); CREATININE 2.4 mg/dL (0.6-1.3); MAGNESIUM 2.6 mg/dL (1.8-2.4); PHOSPHORUS 3.8 mg/dL (2.5-4.9); POTASSIUM 3.2 mmol/L (3.5-5.1); TOTAL PROTEIN, SERUM 8.3 g/dL (6.4-8.2)
[2024-02-27 11:01] LABS: ALBUMIN 1.4 g/dL (3.4-5.0)
[2024-02-27] MEDS: LORAZEPAM INJ 2 MG/ML VIAL IV ONE (11:07)
[2024-02-27] MEDS ORDERED: FENTANYL PF 250MCG/5ML AMPUL IV PRN (11:30)
[2024-02-27] MEDS ORDERED: FLUMAZENIL 0.5 MG VIAL IV PRN (11:30)
[2024-02-27] MEDS ORDERED: NALOXONE PREFILLED SYRINGE 2 MG/2 ML SYRINGE IV PRN (11:30)
[2024-02-27] MEDS ORDERED: MIDAZOLAM HCL 2 MG/2ML VIAL IV PRN (11:30)
[2024-02-27] MEDS: POTASSIUM CHLORIDE 20 MEQ POWDER PACKET GT ONE (20:42)
[2024-02-28] VITALS (10 sets, daily range): BP systolic 114–135; BP diastolic 59–90; TEMP 97.9–100.4; O2SAT 95–100
[2024-02-28] MEDS ORDERED: VANCOMYCIN 500 MG in IV D5W 100ml IV SCH (01:00)
[2024-02-28] MEDS: VANCOMYCIN 750 MG in IV D5W 250 ML IV SCH (01:20)
[2024-02-28 07:20] LABS: BASOPHILS # (AUTO) 0.1 K/uL (0.0-0.2); BASOPHILS % (AUTO) 0.7 % (0.0-2.0); EOSINOPHILS # (AUTO) 0.6 K/uL (0.0-0.7); EOSINOPHILS % (AUTO) 6.6 % (0.0-6.0); HEMATOCRIT 25 % (33-45); HEMOGLOBIN 8.4 g/dL (11.5-14.8); LYMPHOCYTES % (AUTO) 22.4 % (20.0-44.0); MEAN CORPUSCULAR HEMOGLOBIN 30 PG (26.0-33.0); MEAN CORPUSCULAR HGB CONC 33 g/dl (31.0-36.0); MEAN CORPUSCULAR VOLUME 90 fL (82-100); MONOCYTES # (AUTO) 0.7 K/uL (0.1-1.30); MONOCYTES % (AUTO) 7.6 % (2.0-12.0); NEUTROPHILS # (AUTO) 5.6 K/uL (1.8-8.9); NEUTROPHILS % (AUTO) 62.7 % (43.0-81.0); PLATELET COUNT (AUTO) 410 K/uL (150-450); RED BLOOD CELL COUNT(AUTO) 2.81 MIL/uL (4.0-5.2); RED CELL DISTRIBUTION WIDTH 21.8 % (11.5-15.0); WHITE BLOOD COUNT (AUTO) 8.9 K/uL (4.3-11.0)
[2024-02-28 07:39] LABS: ALBUMIN 1.6 g/dL (3.4-5.0); BILIRUBIN,TOTAL 0.3 mg/dL (0.2-1.0); CALCIUM, SERUM 9.7 mg/dL (8.5-10.1); CREATININE 2.1 mg/dL (0.6-1.3); MAGNESIUM 2.3 mg/dL (1.8-2.4); PHOSPHORUS 3.2 mg/dL (2.5-4.9); POTASSIUM 3.7 mmol/L (3.5-5.1)
[2024-02-28] MEDS: DOCUSATE SODIUM LIQ 100 MG/10 ML UDC GT SCH (08:57)
[2024-02-28] MEDS: MEROPENEM 1 G in IV NS 0.9% 100 ML IV SCH (10:19)
[2024-02-28] MEDS: MINERAL OIL 133 ML (PYXIS) 1 EA ENEMA RC ONE (13:46)
[2024-02-29] VITALS (13 sets, daily range): BP systolic 127–139; BP diastolic 68–96; TEMP 98.2–99.5; O2SAT 93–99
[2024-02-29 07:25] LABS: BASOPHILS # (AUTO) 0.1 K/uL (0.0-0.2); BASOPHILS % (AUTO) 0.8 % (0.0-2.0); EOSINOPHILS # (AUTO) 0.6 K/uL (0.0-0.7); EOSINOPHILS % (AUTO) 7.5 % (0.0-6.0); HEMATOCRIT 24 % (33-45); HEMOGLOBIN 8.1 g/dL (11.5-14.8); LYMPHOCYTES # (AUTO) 2.2 K/uL (0.8-4.8); LYMPHOCYTES % (AUTO) 25.4 % (20.0-44.0); MEAN CORPUSCULAR HEMOGLOBIN 30 PG (26.0-33.0); MEAN CORPUSCULAR HGB CONC 34 g/dl (31.0-36.0); MEAN CORPUSCULAR VOLUME 90 fL (82-100); MONOCYTES # (AUTO) 0.7 K/uL (0.1-1.30); MONOCYTES % (AUTO) 8.6 % (2.0-12.0); NEUTROPHILS # (AUTO) 4.9 K/uL (1.8-8.9); NEUTROPHILS % (AUTO) 57.7 % (43.0-81.0); PLATELET COUNT (AUTO) 402 K/uL (150-450); RED BLOOD CELL COUNT(AUTO) 2.69 MIL/uL (4.0-5.2); RED CELL DISTRIBUTION WIDTH 21.3 % (11.5-15.0); WHITE BLOOD COUNT (AUTO) 8.6 K/uL (4.3-11.0)
[2024-02-29 08:31] LABS: CALCIUM, SERUM 10.2 mg/dL (8.5-10.1); CREATININE 1.8 mg/dL (0.6-1.3); MAGNESIUM 2.1 mg/dL (1.8-2.4); PHOSPHORUS 3.6 mg/dL (2.5-4.9); POTASSIUM 3.4 mmol/L (3.5-5.1)
[2024-02-29] MEDS: POTASSIUM CHLORIDE 20 MEQ POWDER PACKET GT ONE (10:00)
[2024-03-01] VITALS (13 sets, daily range): BP systolic 100–123; BP diastolic 53–86; TEMP 97.1–98.6; O2SAT 96–99
[2024-03-01] MEDS ORDERED: VANCOMYCIN HCL 1.25 GM in IV D5W 250 ML IV SCH (01:00)
[2024-03-01 06:48] LABS: BASOPHILS # (AUTO) 0.1 K/uL (0.0-0.2); BASOPHILS % (AUTO) 0.9 % (0.0-2.0); EOSINOPHILS # (AUTO) 0.8 K/uL (0.0-0.7); EOSINOPHILS % (AUTO) 8.9 % (0.0-6.0); HEMATOCRIT 25 % (33-45); HEMOGLOBIN 8.4 g/dL (11.5-14.8); LYMPHOCYTES # (AUTO) 2.1 K/uL (0.8-4.8); LYMPHOCYTES % (AUTO) 23.6 % (20.0-44.0); MEAN CORPUSCULAR HEMOGLOBIN 30 PG (26.0-33.0); MEAN CORPUSCULAR HGB CONC 33 g/dl (31.0-36.0); MEAN CORPUSCULAR VOLUME 91 fL (82-100); MONOCYTES # (AUTO) 0.8 K/uL (0.1-1.30); MONOCYTES % (AUTO) 8.7 % (2.0-12.0); NEUTROPHILS # (AUTO) 5.1 K/uL (1.8-8.9); NEUTROPHILS % (AUTO) 57.9 % (43.0-81.0); PLATELET COUNT (AUTO) 413 K/uL (150-450); RED CELL DISTRIBUTION WIDTH 21.3 % (11.5-15.0); WHITE BLOOD COUNT (AUTO) 8.7 K/uL (4.3-11.0)
[2024-03-01 07:09] LABS: CALCIUM, SERUM 9.6 mg/dL (8.5-10.1); CREATININE 1.7 mg/dL (0.6-1.3); MAGNESIUM 1.8 mg/dL (1.8-2.4); PHOSPHORUS 3.9 mg/dL (2.5-4.9); POTASSIUM 3.7 mmol/L (3.5-5.1)
[2024-03-02] VITALS (7 sets, daily range): BP systolic 98–120; BP diastolic 52–68; TEMP 97.5–98.8; O2SAT 96–99
[2024-03-02 07:24] LABS: CREATININE 1.5 mg/dL (0.6-1.3); POTASSIUM 3.6 mmol/L (3.5-5.1)
[2024-03-02] MEDS ORDERED: MERO1VIA23 IV (13:40)
== END 2024-03-02 16:22 | DRG 720 ==
LOC: ER 05:19 → TELE1 09:53 → TELE-TD 11:19 → TELE1 02-24 12:13
PROVIDERS: ATTEND Nurse Practitioner Family
PROC: 30233N1 Transfusion of Nonautologous Red Blood Cells into Peripheral Vein, Percutaneous Approach (ICD-10-PCS; 2024-02-22)
PROC: 0JB70ZZ Excision of Back Subcutaneous Tissue and Fascia, Open Approach (ICD-10-PCS; principal; 2024-02-24)
PROC: 0W9J30Z Drainage of Pelvic Cavity with Drainage Device, Percutaneous Approach (ICD-10-PCS; 2024-02-27)
DX: A41.9 Sepsis, unspecified organism (principal); N17.0 Acute kidney failure with tubular necrosis; K65.1 Peritoneal abscess; G93.49 Other encephalopathy; L89.153 Pressure ulcer of sacral region, stage 3; R53.2 Functional quadriplegia; E87.0 Hyperosmolality and hypernatremia; J96.10 Chronic respiratory failure, unspecified whether with hypoxia or hypercapnia; D68.59 Other primary thrombophilia; N13.30 Unspecified hydronephrosis; D64.9 Anemia, unspecified; E87.5 Hyperkalemia; K56.41 Fecal impaction; I12.9 Hypertensive chronic kidney disease with stage 1 through stage 4 chronic kidney disease, or unspecified chronic kidney disease; N18.9 Chronic kidney disease, unspecified; G40.909 Epilepsy, unspecified, not intractable, without status epilepticus; Z93.1 Gastrostomy status; Z79.51 Long term (current) use of inhaled steroids; Z79.82 Long term (current) use of aspirin; Z79.899 Other long term (current) drug therapy; R13.10 Dysphagia, unspecified; R59.0 Localized enlarged lymph nodes; D75.839 Thrombocytosis, unspecified; Z86.74 Personal history of sudden cardiac arrest; Z78.1 Physical restraint status; Z93.0 Tracheostomy status; E78.5 Hyperlipidemia, unspecified; M89.8X9 Other specified disorders of bone, unspecified site; K21.9 Gastro-esophageal reflux disease without esophagitis; I25.10 Atherosclerotic heart disease of native coronary artery without angina pectoris; E87.1 Hypo-osmolality and hyponatremia; E86.9 Volume depletion, unspecified; K52.89 Other specified noninfective gastroenteritis and colitis; N32.9 Bladder disorder, unspecified; B96.20 Unspecified Escherichia coli [E. coli] as the cause of diseases classified elsewhere
CPT/HCPCS: 31720; 36415; 71045-TC; 72195-TC; 74018; 75989-TC; 76770-TC; 76856-TC; 80048-TC; 80053-TC; 80061-TC; 80076-TC; 80202-TC; 81001; 82272-TC; 82378; 82550-TC; 82607-TC; 82728-TC; 82784; 83540-TC; 83605-TC; 83615-TC; 83735-TC; 83880; 83970; 84100-TC; 84155; 84165; 84443-TC; 84484-TC; 84702-TC; 85025-TC; 85027-TC; 85610-TC; 85730-TC; 86140-TC; 86225; 86235; 86304; 86334; 86431-TC; 86706; 86803; 86850-TC; 87040-TC; 87081-TC; 87340; 94640-TC; 94760-TC; 94761-TC; 94762-TC; 94799-TC; A4223; A4623; A6403; A6407; C9113; G0378; J0692; J1953; J2060; J2185; J2250; J3010; J3370; J3371; J3490; J7030; J7040; J7050; J7060; P9016

== ENCOUNTER 2024-06-22 11:35 | Inpatient (IN) | payer OTHER ==
[~2024-06-22] VITALS: Ht 160 cm; Wt 73.5 kg
[~2024-06-22 11:35] MED LIST changes: -ACET-2605 PO; -ACET650S26 GT; -ALBUT2 IH; -ALLA266C2 TP; +COLL30OI TP; -CYAN100T9 GT; +MERO1VIA23 IV; -NUT.237L30 GT; +NUTR250L50 GT; -ZINC50TA69 GT
[2024-06-22 12:07] LABS: BASOPHILS # (AUTO) 0.1 K/uL (0.0-0.2); BASOPHILS % (AUTO) 0.4 % (0.0-2.0); EOSINOPHILS # (AUTO) 0.4 K/uL (0.0-0.7); EOSINOPHILS % (AUTO) 1.6 % (0.0-6.0); HEMATOCRIT 23 % (33-45); HEMOGLOBIN 7.5 g/dL (11.5-14.8); LYMPHOCYTES # (AUTO) 1.9 K/uL (0.8-4.8); LYMPHOCYTES % (AUTO) 8.3 % (20.0-44.0); MEAN CORPUSCULAR HEMOGLOBIN 31 PG (26.0-33.0); MEAN CORPUSCULAR HGB CONC 32 g/dl (31.0-36.0); MEAN CORPUSCULAR VOLUME 96 fL (82-100); MONOCYTES # (AUTO) 1.1 K/uL (0.1-1.30); NEUTROPHILS # (AUTO) 19.4 K/uL (1.8-8.9); NEUTROPHILS % (AUTO) 84.7 % (43.0-81.0); PLATELET COUNT (AUTO) 594 K/uL (150-450); RED BLOOD CELL COUNT(AUTO) 2.44 MIL/uL (4.0-5.2); RED CELL DISTRIBUTION WIDTH 14.7 % (11.5-15.0); WHITE BLOOD COUNT (AUTO) 22.9 K/uL (4.3-11.0)
[2024-06-22] MEDS ORDERED: ACET160S GT (12:24)
[2024-06-22] MEDS ORDERED: ACET-2030 GT (12:24)
[2024-06-22] MEDS ORDERED: POTA10CA43 GT (12:24)
[2024-06-22] MEDS ORDERED: EPOE1VIA7 SQ (12:24)
[2024-06-22] MEDS ORDERED: NEPRO 1.8 GT (12:24)
[2024-06-22] MEDS ORDERED: CRAN3875 GT (12:24)
[2024-06-22 12:25] LABS: ALBUMIN 1.9 g/dL (3.4-5.0); BILIRUBIN,DIRECT 0.1 mg/dL (0.0-0.2); BILIRUBIN,TOTAL 0.2 mg/dL (0.2-1.0); CALCIUM, SERUM 11.8 mg/dL (8.5-10.1); POTASSIUM 3.4 mmol/L (3.5-5.1); TOTAL PROTEIN, SERUM 9.8 g/dL (6.4-8.2)
[2024-06-22 12:43] LABS: CREATININE 2.4 mg/dL (0.6-1.3)
[2024-06-22] MEDS: CEFTRIAXONE 1GM BAG (ER ONLY) 50 ML IV ONE (13:26)
[2024-06-22 13:54] LABS: LACTIC ACID 1.2 mmol/L (0.4-2.0)
[2024-06-22] MEDS: IV NS 0.9% 1,000 ML BAG IV ONE (14:01)
[2024-06-22 14:21] LABS: APPEARANCE,URINE TURBID (CLEAR); COLOR,URINE YELLOW (YELLOW)
[2024-06-22 15:23] LABS: BILIRUBIN,URINE NEGATIVE (NEGATIVE); KETONES,URINE NEGATIVE (NEGATIVE); UGLUCOSE NEGATIVE (NEGATIVE)
[2024-06-22 15:25] LABS: BLOOD, URINE LARGE Ery/uL (NEGATIVE); PH,URINE 6.5 (5.0-8.0)
[2024-06-22 15:27] LABS: PROTEIN,URINE 3+ mg/dl (NEGATIVE)
[2024-06-22 15:28] LABS: NITRITE, URINE NEGATIVE (NEGATIVE); UROBILINOGEN,URINE 0.2 EU/dL (0.2)
[2024-06-22 15:29] LABS: LEUKOCYTE ESTERASE ,URINE LARGE (NEGATIVE)
[2024-06-22 15:38] LABS: RBC,URINE TOO NUMEROUS TO COUN /HPF (0-2); WBC,URINE TOO NUMEROUS TO COUN /HPF (0-3)
[2024-06-22 15:39] LABS: ADD URINE CULTURE YES; BACTERIA,URINE Many /HPF (None Seen)
[2024-06-22 16:00] VITALS: BP 125/65; TEMP 98.8; O2SAT 100
[2024-06-22] MEDS ORDERED: ACETAMINOPHEN 325 MG TABLET PO PRN (16:00)
[2024-06-22] MEDS ORDERED: ONDANSETRON HCL/PF 4 MG/2 ML VIAL IVP PRN (16:00)
[2024-06-22] MEDS ORDERED: Z GUARD REMEDY 4 OZ OINT TP PRN (16:00)
[2024-06-22] MEDS: EPOETIN ALFA (10,000 UNIT) 10,000 UNIT/ML VIAL SQ SCH (16:54)
[2024-06-22] MEDS: BACLOFEN (10 MG) 10 MG TABLET GT SCH (17:05)
[2024-06-22] MEDS: ASPIRIN 81 MG TAB.CHEW GT SCH (17:05)
[2024-06-22] MEDS: LEVETIRACETAM SOL (5 ML) 100 MG/ML UDC GT SCH (17:06)
[2024-06-22] MEDS: MEROPENEM 500 MG in IV NS 0.9% 50 ML IV SCH (17:06)
[2024-06-22] MEDS: ENOXAPARIN SODIUM 30 MG/0.3 ML DISP.SYRIN SQ SCH (17:07)
[2024-06-22] MEDS: IV NS 0.9% 1,000 ML IV PRN (17:10)
[2024-06-22 17:20] VITALS: O2SAT 100
[2024-06-22] MEDS: VANCOMYCIN HCL 1.25 GM in IV D5W 250 ML IV ONE (18:17)
[2024-06-22] MEDS: NEPRO 1,000 ML BOTTLE GT PRN (19:01)
[2024-06-22] MEDS: ALBUTEROL FS 2.5 MG/3 ML VIAL.NEB IH SCH (19:30)
[2024-06-22 20:00] VITALS: BP 127/64; TEMP 98.5; O2SAT 100
[2024-06-22 20:18] VITALS: O2SAT 100
[2024-06-22 20:21] VITALS: O2SAT 100
[2024-06-22] MEDS: VALPROIC ACID 250 MG/5 ML UDC GT SCH (21:08)
[2024-06-22] MEDS: METOPROLOL TARTRATE 25 MG TABLET GT SCH (21:08)
[2024-06-22 23:45] VITALS: O2SAT 100
[2024-06-22] MEDS: ACETAMINOPHEN 650 MG/20.3 ML UDC GT PRN (23:57)
[2024-06-23] VITALS (13 sets, daily range): BP systolic 99–121; BP diastolic 63–70; TEMP 98.1–102.7; O2SAT 95–100
[2024-06-23] MEDS: PANTOPRAZOLE 40 MG/PACK PACK GT SCH (08:55)
[2024-06-23 09:53] LABS: BASOPHILS # (AUTO) 0.1 K/uL (0.0-0.2); BASOPHILS % (AUTO) 0.2 % (0.0-2.0); EOSINOPHILS # (AUTO) 0.2 K/uL (0.0-0.7); EOSINOPHILS % (AUTO) 0.8 % (0.0-6.0); LYMPHOCYTES # (AUTO) 0.5 K/uL (0.8-4.8); LYMPHOCYTES % (AUTO) 2.1 % (20.0-44.0); MEAN CORPUSCULAR HEMOGLOBIN 30 PG (26.0-33.0); MEAN CORPUSCULAR HGB CONC 32 g/dl (31.0-36.0); MEAN CORPUSCULAR VOLUME 96 fL (82-100); MONOCYTES # (AUTO) 0.7 K/uL (0.1-1.30); MONOCYTES % (AUTO) 2.9 % (2.0-12.0); PLATELET COUNT (AUTO) 475 K/uL (150-450); RED BLOOD CELL COUNT(AUTO) 2.03 MIL/uL (4.0-5.2); WHITE BLOOD COUNT (AUTO) 24.5 K/uL (4.3-11.0)
[2024-06-23 10:07] LABS: CALCIUM, SERUM 10.4 mg/dL (8.5-10.1); CREATININE 2.3 mg/dL (0.6-1.3); MAGNESIUM 2.4 mg/dL (1.8-2.4); PHOSPHORUS 2.5 mg/dL (2.5-4.9); POTASSIUM 2.9 mmol/L (3.5-5.1)
[2024-06-23 10:10] LABS: HEMATOCRIT 19 % (33-45); HEMOGLOBIN 6.2 g/dL (11.5-14.8)
[2024-06-23] MEDS: POTASSIUM CL. PREMIX PERIPHER. 50 ML IV SCH (10:36)
[2024-06-23 11:53] LABS: ANISOCYTOSIS 1+; BAND % (MANUAL) 1 % (0.0-5.0); EOSINOPHILS % (MANUAL) 1 % (0-4); LYMPHOCYTES % (MANUAL) 3 % (16-48); MONOCYTES % (MANUAL) 1 % (0-11.0); NEUTROPHILS % (MANUAL) 94 (42-76); PLATELET ESTIMATE ADEQUATE
[2024-06-23] MEDS: VANCOMYCIN 750 MG in IV D5W 250 ML IV SCH (17:28)
[2024-06-23] MEDS: MEROPENEM 500 MG in IV NS 0.9% 100 ML IV SCH (20:54)
[2024-06-24] VITALS (13 sets, daily range): BP systolic 105–136; BP diastolic 58–80; TEMP 99–100; O2SAT 97–100
[2024-06-24 08:08] LABS: BASOPHILS # (AUTO) 0.1 K/uL (0.0-0.2); BASOPHILS % (AUTO) 0.3 % (0.0-2.0); EOSINOPHILS # (AUTO) 0.2 K/uL (0.0-0.7); HEMATOCRIT 22 % (33-45); LYMPHOCYTES % (AUTO) 5.2 % (20.0-44.0); MEAN CORPUSCULAR HEMOGLOBIN 31 PG (26.0-33.0); MEAN CORPUSCULAR HGB CONC 31 g/dl (31.0-36.0); MEAN CORPUSCULAR VOLUME 98 fL (82-100); MONOCYTES # (AUTO) 0.6 K/uL (0.1-1.30); MONOCYTES % (AUTO) 3.3 % (2.0-12.0); NEUTROPHILS # (AUTO) 17.2 K/uL (1.8-8.9); NEUTROPHILS % (AUTO) 90.2 % (43.0-81.0); PLATELET COUNT (AUTO) 431 K/uL (150-450); RED BLOOD CELL COUNT(AUTO) 2.22 MIL/uL (4.0-5.2); RED CELL DISTRIBUTION WIDTH 15.2 % (11.5-15.0); WHITE BLOOD COUNT (AUTO) 19.1 K/uL (4.3-11.0)
[2024-06-24 08:13] LABS: HEMOGLOBIN 6.8 g/dL (11.5-14.8)
[2024-06-24 10:14] LABS: EOSINOPHILS % (MANUAL) 4 % (0-4); LYMPHOCYTES % (MANUAL) 8 % (16-48); MONOCYTES % (MANUAL) 4 % (0-11.0); NEUTROPHILS % (MANUAL) 84 (42-76)
[2024-06-24 10:15] LABS: ANISOCYTOSIS 1+; PLATELET ESTIMATE ADEQUATE; STOMATOCYTES 1+
[2024-06-24 12:05] LABS: APPEARANCE,URINE SLIGHTLY CLOUDY (CLEAR); BILIRUBIN,URINE NEGATIVE (NEGATIVE); BLOOD, URINE 2+ Ery/uL (NEGATIVE); COLOR,URINE YELLOW (YELLOW); KETONES,URINE NEGATIVE (NEGATIVE); LEUKOCYTE ESTERASE ,URINE 3+ (NEGATIVE); NITRITE, URINE NEGATIVE (NEGATIVE); PROTEIN,URINE 1+ mg/dl (NEGATIVE); UGLUCOSE NEGATIVE (NEGATIVE); UROBILINOGEN,URINE 0.2 EU/dL (0.2)
[2024-06-24 12:06] LABS: PREGNANCY TEST URINE QUAL NEGATIVE (NEGATIVE)
[2024-06-24 12:13] LABS: CREATININE, URINE 24.7 MG/DL (30.0-125.0); URINE TOTAL PROTEIN 135.3 mg/dL (0-11.9)
[2024-06-24 12:26] LABS: ADD URINE CULTURE YES; BACTERIA,URINE Moderate /HPF (None Seen); WBC,URINE 21-50 /HPF (0-3)
[2024-06-24 12:56] LABS: EOSINOPHIL,URINE None Seen
[2024-06-24] MEDS: CEFEPIME 1 GM in IV D5W 50 ML IV SCH (14:45)
[2024-06-24 15:58] LABS: OCCULT BLOOD STOOL NEGATIVE (NEGATIVE)
[2024-06-25] VITALS (21 sets, daily range): BP systolic 110–131; BP diastolic 63–96; TEMP 98.4–102.2; O2SAT 94–99
[2024-06-25 12:10] LABS: BASOPHILS # (AUTO) 0.1 K/uL (0.0-0.2); BASOPHILS % (AUTO) 0.7 % (0.0-2.0); EOSINOPHILS # (AUTO) 0.3 K/uL (0.0-0.7); EOSINOPHILS % (AUTO) 1.7 % (0.0-6.0); LYMPHOCYTES # (AUTO) 0.9 K/uL (0.8-4.8); LYMPHOCYTES % (AUTO) 5.2 % (20.0-44.0); MEAN CORPUSCULAR HEMOGLOBIN 31 PG (26.0-33.0); MEAN CORPUSCULAR HGB CONC 32 g/dl (31.0-36.0); MEAN CORPUSCULAR VOLUME 97 fL (82-100); MONOCYTES # (AUTO) 0.6 K/uL (0.1-1.30); MONOCYTES % (AUTO) 3.2 % (2.0-12.0); NEUTROPHILS # (AUTO) 15.4 K/uL (1.8-8.9); NEUTROPHILS % (AUTO) 89.2 % (43.0-81.0); PLATELET COUNT (AUTO) 461 K/uL (150-450); RED CELL DISTRIBUTION WIDTH 14.8 % (11.5-15.0); WHITE BLOOD COUNT (AUTO) 17.2 K/uL (4.3-11.0)
[2024-06-25 12:15] LABS: CALCIUM, SERUM 10.6 mg/dL (8.5-10.1); CREATININE 2.2 mg/dL (0.6-1.3); POTASSIUM 3.2 mmol/L (3.5-5.1)
[2024-06-25 12:18] LABS: RED BLOOD CELL COUNT(AUTO) 1.88 MIL/uL (4.0-5.2)
[2024-06-25 12:21] LABS: HEMATOCRIT 18 % (33-45); HEMOGLOBIN 5.8 g/dL (11.5-14.8)
[2024-06-25 12:29] LABS: MAGNESIUM 2.1 mg/dL (1.8-2.4); PHOSPHORUS 2.8 mg/dL (2.5-4.9)
[2024-06-25 13:33] LABS: LYMPHOCYTES % (MANUAL) 6 % (16-48); MONOCYTES % (MANUAL) 5 % (0-11.0); NEUTROPHILS % (MANUAL) 87 (42-76)
[2024-06-25 13:34] LABS: EOSINOPHILS % (MANUAL) 2 % (0-4); PLATELET ESTIMATE ADEQUATE
[2024-06-25 13:35] LABS: ANISOCYTOSIS 1+
[2024-06-25 13:37] LABS: STOMATOCYTES 1+
[2024-06-25] MEDS: VANCOMYCIN 750 MG in IV D5W 250 ML IV SCH (17:06)
[2024-06-25] MEDS: POTASSIUM CHLORIDE 20 MEQ POWDER PACKET NG SCH (19:11)
[2024-06-25 20:32] LABS: HEMOGLOBIN 7.8 g/dL (11.5-14.8)
[2024-06-26] VITALS (16 sets, daily range): BP systolic 117–133; BP diastolic 71–88; TEMP 98.6–102; O2SAT 95–100
[2024-06-26 07:56] LABS: CALCIUM, SERUM 9.7 mg/dL (8.5-10.1); CREATININE 2.1 mg/dL (0.6-1.3); POTASSIUM 3.4 mmol/L (3.5-5.1)
[2024-06-26 09:19] LABS: MAGNESIUM 2.1 mg/dL (1.8-2.4); PHOSPHORUS 2.8 mg/dL (2.5-4.9)
[2024-06-26 09:28] LABS: BASOPHILS # (AUTO) 0.1 K/uL (0.0-0.2); BASOPHILS % (AUTO) 0.5 % (0.0-2.0); EOSINOPHILS # (AUTO) 0.2 K/uL (0.0-0.7); EOSINOPHILS % (AUTO) 1.5 % (0.0-6.0); HEMATOCRIT 23 % (33-45); HEMOGLOBIN 7.4 g/dL (11.5-14.8); LYMPHOCYTES # (AUTO) 1.2 K/uL (0.8-4.8); LYMPHOCYTES % (AUTO) 8.6 % (20.0-44.0); MEAN CORPUSCULAR HEMOGLOBIN 30 PG (26.0-33.0); MEAN CORPUSCULAR HGB CONC 32 g/dl (31.0-36.0); MEAN CORPUSCULAR VOLUME 94 fL (82-100); MONOCYTES # (AUTO) 0.6 K/uL (0.1-1.30); MONOCYTES % (AUTO) 4.4 % (2.0-12.0); NEUTROPHILS # (AUTO) 11.9 K/uL (1.8-8.9); PLATELET COUNT (AUTO) 390 K/uL (150-450); RED BLOOD CELL COUNT(AUTO) 2.48 MIL/uL (4.0-5.2); RED CELL DISTRIBUTION WIDTH 15.7 % (11.5-15.0)
[2024-06-26] MEDS: POTASSIUM CHLORIDE 20 MEQ POWDER PACKET GT ONE (11:51)
[2024-06-26] MEDS: POLYETHYLENE GLYCOL 3350 17 GM POWD.PACK PO SCH (20:58)
[2024-06-27] VITALS (18 sets, daily range): BP systolic 130–140; BP diastolic 72–100; TEMP 98.2–100.6; O2SAT 96–99
[2024-06-27 08:18] LABS: CREATININE 2.1 mg/dL (0.6-1.3); TOTAL PROTEIN, SERUM 8.6 g/dL (6.4-8.2)
[2024-06-27 09:34] LABS: POTASSIUM 3.9 mmol/L (3.5-5.1)
[2024-06-27 09:35] LABS: BILIRUBIN,TOTAL 0.2 mg/dL (0.2-1.0)
[2024-06-27 09:38] LABS: ALBUMIN 1.5 g/dL (3.4-5.0)
[2024-06-27 10:40] LABS: CALCIUM, SERUM 9.3 mg/dL (8.5-10.1)
[2024-06-27 10:42] LABS: MAGNESIUM 2.3 mg/dL (1.8-2.4); PHOSPHORUS 3.2 mg/dL (2.5-4.9)
[2024-06-27 11:07] LABS: BASOPHILS # (AUTO) 0.1 K/uL (0.0-0.2); BASOPHILS % (AUTO) 0.6 % (0.0-2.0); EOSINOPHILS # (AUTO) 0.2 K/uL (0.0-0.7); HEMATOCRIT 23 % (33-45); HEMOGLOBIN 7.2 g/dL (11.5-14.8); LYMPHOCYTES # (AUTO) 1.3 K/uL (0.8-4.8); LYMPHOCYTES % (AUTO) 8.7 % (20.0-44.0); MEAN CORPUSCULAR HEMOGLOBIN 30 PG (26.0-33.0); MEAN CORPUSCULAR HGB CONC 32 g/dl (31.0-36.0); MEAN CORPUSCULAR VOLUME 95 fL (82-100); MONOCYTES # (AUTO) 0.8 K/uL (0.1-1.30); MONOCYTES % (AUTO) 5.3 % (2.0-12.0); NEUTROPHILS # (AUTO) 12.5 K/uL (1.8-8.9); NEUTROPHILS % (AUTO) 84.4 % (43.0-81.0); PLATELET COUNT (AUTO) 371 K/uL (150-450); RED BLOOD CELL COUNT(AUTO) 2.39 MIL/uL (4.0-5.2); RED CELL DISTRIBUTION WIDTH 16.2 % (11.5-15.0); WHITE BLOOD COUNT (AUTO) 14.8 K/uL (4.3-11.0)
[2024-06-27 11:24] LABS: IRON, SERUM 15 ug/dl (50-175); TOTAL IRON BINDING CAPACITY 89 ug/dl (250-450)
[2024-06-28] VITALS (17 sets, daily range): BP systolic 116–141; BP diastolic 70–81; TEMP 98.8–101.3; O2SAT 96–99
[2024-06-28 06:37] LABS: BASOPHILS # (AUTO) 0.1 K/uL (0.0-0.2); BASOPHILS % (AUTO) 0.9 % (0.0-2.0); EOSINOPHILS # (AUTO) 0.1 K/uL (0.0-0.7); EOSINOPHILS % (AUTO) 1.2 % (0.0-6.0); HEMATOCRIT 25 % (33-45); HEMOGLOBIN 7.8 g/dL (11.5-14.8); LYMPHOCYTES # (AUTO) 1.5 K/uL (0.8-4.8); LYMPHOCYTES % (AUTO) 13.9 % (20.0-44.0); MEAN CORPUSCULAR HEMOGLOBIN 31 PG (26.0-33.0); MEAN CORPUSCULAR HGB CONC 31 g/dl (31.0-36.0); MEAN CORPUSCULAR VOLUME 99 fL (82-100); MONOCYTES # (AUTO) 0.6 K/uL (0.1-1.30); MONOCYTES % (AUTO) 5.9 % (2.0-12.0); NEUTROPHILS # (AUTO) 8.2 K/uL (1.8-8.9); NEUTROPHILS % (AUTO) 78.1 % (43.0-81.0); PLATELET COUNT (AUTO) 358 K/uL (150-450); RED BLOOD CELL COUNT(AUTO) 2.51 MIL/uL (4.0-5.2); RED CELL DISTRIBUTION WIDTH 16.4 % (11.5-15.0); WHITE BLOOD COUNT (AUTO) 10.5 K/uL (4.3-11.0)
[2024-06-28 07:02] LABS: CALCIUM, SERUM 8.9 mg/dL (8.5-10.1); CREATININE 2.6 mg/dL (0.6-1.3); MAGNESIUM 2.2 mg/dL (1.8-2.4); PHOSPHORUS 3.1 mg/dL (2.5-4.9); POTASSIUM 3.6 mmol/L (3.5-5.1)
[2024-06-28] MEDS: VANCOMYCIN 1 GM in IV D5W 250ml IV SCH (10:09)
[2024-06-29] VITALS (18 sets, daily range): BP systolic 118–148; BP diastolic 68–84; TEMP 97.3–99.1; O2SAT 96–99
[2024-06-29 12:16] LABS: CALCIUM, SERUM 9.5 mg/dL (8.5-10.1); CREATININE 2.5 mg/dL (0.6-1.3); MAGNESIUM 2.3 mg/dL (1.8-2.4); PHOSPHORUS 4.8 mg/dL (2.5-4.9); POTASSIUM 3.5 mmol/L (3.5-5.1)
[2024-06-29 13:00] LABS: BASOPHILS # (AUTO) 0.1 K/uL (0.0-0.2); EOSINOPHILS # (AUTO) 0.2 K/uL (0.0-0.7); EOSINOPHILS % (AUTO) 2.3 % (0.0-6.0); HEMATOCRIT 23 % (33-45); HEMOGLOBIN 7.2 g/dL (11.5-14.8); LYMPHOCYTES # (AUTO) 1.6 K/uL (0.8-4.8); LYMPHOCYTES % (AUTO) 16.4 % (20.0-44.0); MEAN CORPUSCULAR HEMOGLOBIN 31 PG (26.0-33.0); MEAN CORPUSCULAR HGB CONC 32 g/dl (31.0-36.0); MEAN CORPUSCULAR VOLUME 97 fL (82-100); MONOCYTES # (AUTO) 0.5 K/uL (0.1-1.30); MONOCYTES % (AUTO) 5.3 % (2.0-12.0); NEUTROPHILS # (AUTO) 7.3 K/uL (1.8-8.9); PLATELET COUNT (AUTO) 348 K/uL (150-450); RED BLOOD CELL COUNT(AUTO) 2.33 MIL/uL (4.0-5.2); RED CELL DISTRIBUTION WIDTH 16.1 % (11.5-15.0); WHITE BLOOD COUNT (AUTO) 9.7 K/uL (4.3-11.0)
[2024-06-30] VITALS (17 sets, daily range): BP systolic 108–140; BP diastolic 7–76; TEMP 97.9–99; O2SAT 95–100
[2024-06-30 08:04] LABS: BASOPHILS # (AUTO) 0.1 K/uL (0.0-0.2); BASOPHILS % (AUTO) 0.8 % (0.0-2.0); EOSINOPHILS # (AUTO) 0.4 K/uL (0.0-0.7); EOSINOPHILS % (AUTO) 4.5 % (0.0-6.0); HEMATOCRIT 25 % (33-45); HEMOGLOBIN 7.3 g/dL (11.5-14.8); LYMPHOCYTES # (AUTO) 1.8 K/uL (0.8-4.8); LYMPHOCYTES % (AUTO) 18.3 % (20.0-44.0); MEAN CORPUSCULAR HEMOGLOBIN 31 PG (26.0-33.0); MEAN CORPUSCULAR HGB CONC 30 g/dl (31.0-36.0); MEAN CORPUSCULAR VOLUME 103 fL (82-100); MONOCYTES # (AUTO) 0.5 K/uL (0.1-1.30); MONOCYTES % (AUTO) 5.1 % (2.0-12.0); NEUTROPHILS # (AUTO) 6.9 K/uL (1.8-8.9); NEUTROPHILS % (AUTO) 71.3 % (43.0-81.0); PLATELET COUNT (AUTO) 350 K/uL (150-450); RED BLOOD CELL COUNT(AUTO) 2.37 MIL/uL (4.0-5.2); RED CELL DISTRIBUTION WIDTH 17.2 % (11.5-15.0); WHITE BLOOD COUNT (AUTO) 9.7 K/uL (4.3-11.0)
[2024-06-30 08:17] LABS: CALCIUM, SERUM 9.2 mg/dL (8.5-10.1); CREATININE 2.4 mg/dL (0.6-1.3); MAGNESIUM 2.2 mg/dL (1.8-2.4); PHOSPHORUS 5.3 mg/dL (2.5-4.9); POTASSIUM 3.2 mmol/L (3.5-5.1)
[2024-06-30] MEDS: POTASSIUM CHLORIDE 20 MEQ POWDER PACKET GT ONE (10:29)
[2024-06-30] MEDS: FREE WATER VIA TUBE FEEDING GT SCH (12:41)
[2024-07-01] VITALS (16 sets, daily range): BP systolic 104–127; BP diastolic 70–97; TEMP 97.7–99.6; O2SAT 96–100
[2024-07-01 07:53] LABS: BASOPHILS # (AUTO) 0.1 K/uL (0.0-0.2); EOSINOPHILS # (AUTO) 0.4 K/uL (0.0-0.7); HEMATOCRIT 23 % (33-45); HEMOGLOBIN 7.5 g/dL (11.5-14.8); LYMPHOCYTES # (AUTO) 1.4 K/uL (0.8-4.8); LYMPHOCYTES % (AUTO) 17.3 % (20.0-44.0); MEAN CORPUSCULAR HEMOGLOBIN 30 PG (26.0-33.0); MEAN CORPUSCULAR HGB CONC 33 g/dl (31.0-36.0); MEAN CORPUSCULAR VOLUME 94 fL (82-100); MONOCYTES # (AUTO) 0.4 K/uL (0.1-1.30); MONOCYTES % (AUTO) 5.3 % (2.0-12.0); NEUTROPHILS # (AUTO) 5.9 K/uL (1.8-8.9); NEUTROPHILS % (AUTO) 71.4 % (43.0-81.0); PLATELET COUNT (AUTO) 399 K/uL (150-450); RED BLOOD CELL COUNT(AUTO) 2.47 MIL/uL (4.0-5.2); RED CELL DISTRIBUTION WIDTH 15.9 % (11.5-15.0); WHITE BLOOD COUNT (AUTO) 8.3 K/uL (4.3-11.0)
[2024-07-01 08:08] LABS: CREATININE 2.2 mg/dL (0.6-1.3); MAGNESIUM 2.3 mg/dL (1.8-2.4); PHOSPHORUS 5.3 mg/dL (2.5-4.9); POTASSIUM 3.4 mmol/L (3.5-5.1)
[2024-07-01] MEDS: POTASSIUM CHLORIDE 20 MEQ POWDER PACKET GT ONE (10:37)
[2024-07-02] VITALS (18 sets, daily range): BP systolic 115–134; BP diastolic 76–86; TEMP 98.1–98.6; O2SAT 95–100
[2024-07-02 08:30] LABS: BASOPHILS # (AUTO) 0.1 K/uL (0.0-0.2); BASOPHILS % (AUTO) 1.1 % (0.0-2.0); EOSINOPHILS # (AUTO) 0.4 K/uL (0.0-0.7); EOSINOPHILS % (AUTO) 5.8 % (0.0-6.0); HEMATOCRIT 24 % (33-45); HEMOGLOBIN 7.6 g/dL (11.5-14.8); LYMPHOCYTES # (AUTO) 1.3 K/uL (0.8-4.8); LYMPHOCYTES % (AUTO) 17.8 % (20.0-44.0); MEAN CORPUSCULAR HEMOGLOBIN 30 PG (26.0-33.0); MEAN CORPUSCULAR HGB CONC 31 g/dl (31.0-36.0); MEAN CORPUSCULAR VOLUME 95 fL (82-100); MONOCYTES # (AUTO) 0.3 K/uL (0.1-1.30); MONOCYTES % (AUTO) 4.7 % (2.0-12.0); NEUTROPHILS # (AUTO) 4.9 K/uL (1.8-8.9); NEUTROPHILS % (AUTO) 70.6 % (43.0-81.0); PLATELET COUNT (AUTO) 364 K/uL (150-450); RED BLOOD CELL COUNT(AUTO) 2.55 MIL/uL (4.0-5.2); RED CELL DISTRIBUTION WIDTH 16.2 % (11.5-15.0)
[2024-07-02 08:50] LABS: MAGNESIUM 2.2 mg/dL (1.8-2.4); PHOSPHORUS 5.7 mg/dL (2.5-4.9); POTASSIUM 3.3 mmol/L (3.5-5.1)
[2024-07-02] MEDS: POTASSIUM CL. PREMIX PERIPHER. 50 ML IV SCH (11:07)
[2024-07-02 12:24] LABS: INR 1.12 (0.91-1.10); PROTHROMBIN TIME 11.8 SECS (9.2-11.1)
[2024-07-02] MEDS ORDERED: NALOXONE PREFILLED SYRINGE 2 MG/2 ML SYRINGE IV PRN (13:30)
[2024-07-02] MEDS ORDERED: FLUMAZENIL 0.5 MG VIAL IV PRN (13:30)
[2024-07-02] MEDS ORDERED: MIDAZOLAM HCL 2 MG/2ML VIAL IV PRN (13:30)
[2024-07-02] MEDS ORDERED: FENTANYL PF 250MCG/5ML AMPUL IV PRN (13:30)
[2024-07-02] MEDS: NEPRO 1,000 ML BOTTLE GT PRN (23:34)
[2024-07-03] VITALS (15 sets, daily range): BP systolic 110–141; BP diastolic 72–86; TEMP 97.5–98.6; O2SAT 95–100
[2024-07-03 07:09] LABS: BASOPHILS # (AUTO) 0.1 K/uL (0.0-0.2); BASOPHILS % (AUTO) 1.4 % (0.0-2.0); EOSINOPHILS # (AUTO) 0.6 K/uL (0.0-0.7); EOSINOPHILS % (AUTO) 6.4 % (0.0-6.0); HEMATOCRIT 23 % (33-45); HEMOGLOBIN 7.5 g/dL (11.5-14.8); LYMPHOCYTES # (AUTO) 1.3 K/uL (0.8-4.8); LYMPHOCYTES % (AUTO) 14.7 % (20.0-44.0); MEAN CORPUSCULAR HEMOGLOBIN 31 PG (26.0-33.0); MEAN CORPUSCULAR HGB CONC 33 g/dl (31.0-36.0); MEAN CORPUSCULAR VOLUME 94 fL (82-100); MONOCYTES # (AUTO) 0.5 K/uL (0.1-1.30); MONOCYTES % (AUTO) 5.3 % (2.0-12.0); NEUTROPHILS # (AUTO) 6.3 K/uL (1.8-8.9); NEUTROPHILS % (AUTO) 72.2 % (43.0-81.0); PLATELET COUNT (AUTO) 445 K/uL (150-450); RED BLOOD CELL COUNT(AUTO) 2.46 MIL/uL (4.0-5.2); RED CELL DISTRIBUTION WIDTH 15.9 % (11.5-15.0); WHITE BLOOD COUNT (AUTO) 8.8 K/uL (4.3-11.0)
[2024-07-03 07:28] LABS: PHOSPHORUS 5.6 mg/dL (2.5-4.9); POTASSIUM 3.2 mmol/L (3.5-5.1)
[2024-07-03] MEDS: POLYETHYLENE GLYCOL 3350 17 GM POWD.PACK GT SCH (08:36)
[2024-07-03] MEDS: POTASSIUM CL. PREMIX PERIPHER. 50 ML IV SCH (10:43)
[2024-07-04] VITALS (17 sets, daily range): BP systolic 123–146; BP diastolic 78–84; TEMP 98.1–100.1; O2SAT 97–100
[2024-07-04 07:21] LABS: CALCIUM, SERUM 9.4 mg/dL (8.5-10.1); CREATININE 1.7 mg/dL (0.6-1.3); POTASSIUM 3.6 mmol/L (3.5-5.1)
[2024-07-04 07:24] LABS: BASOPHILS # (AUTO) 0.1 K/uL (0.0-0.2); BASOPHILS % (AUTO) 1.1 % (0.0-2.0); EOSINOPHILS # (AUTO) 0.6 K/uL (0.0-0.7); EOSINOPHILS % (AUTO) 6.5 % (0.0-6.0); HEMATOCRIT 24 % (33-45); HEMOGLOBIN 7.7 g/dL (11.5-14.8); LYMPHOCYTES # (AUTO) 1.6 K/uL (0.8-4.8); LYMPHOCYTES % (AUTO) 18.9 % (20.0-44.0); MEAN CORPUSCULAR HEMOGLOBIN 31 PG (26.0-33.0); MEAN CORPUSCULAR HGB CONC 32 g/dl (31.0-36.0); MEAN CORPUSCULAR VOLUME 95 fL (82-100); MONOCYTES # (AUTO) 0.4 K/uL (0.1-1.30); MONOCYTES % (AUTO) 4.9 % (2.0-12.0); NEUTROPHILS % (AUTO) 68.6 % (43.0-81.0); PLATELET COUNT (AUTO) 451 K/uL (150-450); RED BLOOD CELL COUNT(AUTO) 2.49 MIL/uL (4.0-5.2); RED CELL DISTRIBUTION WIDTH 15.9 % (11.5-15.0); WHITE BLOOD COUNT (AUTO) 8.7 K/uL (4.3-11.0)
[2024-07-05] VITALS (18 sets, daily range): BP systolic 113–139; BP diastolic 55–89; TEMP 98–98.8; O2SAT 95–100
[2024-07-05 07:26] LABS: BASOPHILS % (AUTO) 0.3 % (0.0-2.0); EOSINOPHILS # (AUTO) 0.5 K/uL (0.0-0.7); EOSINOPHILS % (AUTO) 3.7 % (0.0-6.0); HEMATOCRIT 27 % (33-45); HEMOGLOBIN 8.5 g/dL (11.5-14.8); LYMPHOCYTES % (AUTO) 7.2 % (20.0-44.0); MEAN CORPUSCULAR HEMOGLOBIN 30 PG (26.0-33.0); MEAN CORPUSCULAR HGB CONC 31 g/dl (31.0-36.0); MEAN CORPUSCULAR VOLUME 95 fL (82-100); MONOCYTES # (AUTO) 0.6 K/uL (0.1-1.30); MONOCYTES % (AUTO) 4.1 % (2.0-12.0); NEUTROPHILS # (AUTO) 11.8 K/uL (1.8-8.9); NEUTROPHILS % (AUTO) 84.7 % (43.0-81.0); PLATELET COUNT (AUTO) 512 K/uL (150-450); RED BLOOD CELL COUNT(AUTO) 2.83 MIL/uL (4.0-5.2); RED CELL DISTRIBUTION WIDTH 16.2 % (11.5-15.0); WHITE BLOOD COUNT (AUTO) 13.9 K/uL (4.3-11.0)
[2024-07-05 08:28] LABS: CALCIUM, SERUM 9.6 mg/dL (8.5-10.1); CREATININE 1.7 mg/dL (0.6-1.3); POTASSIUM 3.4 mmol/L (3.5-5.1)
[2024-07-05] MEDS: POTASSIUM CL. PREMIX PERIPHER. 50 ML IV SCH (12:11)
[2024-07-06] VITALS (16 sets, daily range): BP systolic 119–139; BP diastolic 73–86; TEMP 97.7–98.6; O2SAT 93–99
[2024-07-06 13:00] LABS: CALCIUM, SERUM 9.9 mg/dL (8.5-10.1); CREATININE 1.8 mg/dL (0.6-1.3); POTASSIUM 3.6 mmol/L (3.5-5.1)
[2024-07-07] VITALS (18 sets, daily range): BP systolic 106–134; BP diastolic 70–88; TEMP 97.2–98.1; O2SAT 95–99
[2024-07-07 07:46] LABS: CREATININE 1.5 mg/dL (0.6-1.3); POTASSIUM 3.7 mmol/L (3.5-5.1)
[2024-07-08] VITALS (18 sets, daily range): BP systolic 113–121; BP diastolic 70–90; TEMP 97.7–98.4; O2SAT 95–100
[2024-07-08 08:09] LABS: BASOPHILS # (AUTO) 0.1 K/uL (0.0-0.2); BASOPHILS % (AUTO) 1.3 % (0.0-2.0); EOSINOPHILS # (AUTO) 0.6 K/uL (0.0-0.7); EOSINOPHILS % (AUTO) 9.2 % (0.0-6.0); HEMATOCRIT 27 % (33-45); HEMOGLOBIN 8.5 g/dL (11.5-14.8); LYMPHOCYTES # (AUTO) 1.4 K/uL (0.8-4.8); LYMPHOCYTES % (AUTO) 19.9 % (20.0-44.0); MEAN CORPUSCULAR HEMOGLOBIN 31 PG (26.0-33.0); MEAN CORPUSCULAR HGB CONC 32 g/dl (31.0-36.0); MEAN CORPUSCULAR VOLUME 97 fL (82-100); MONOCYTES # (AUTO) 0.3 K/uL (0.1-1.30); NEUTROPHILS # (AUTO) 4.5 K/uL (1.8-8.9); NEUTROPHILS % (AUTO) 64.6 % (43.0-81.0); PLATELET COUNT (AUTO) 476 K/uL (150-450); RED BLOOD CELL COUNT(AUTO) 2.75 MIL/uL (4.0-5.2); RED CELL DISTRIBUTION WIDTH 18.1 % (11.5-15.0); WHITE BLOOD COUNT (AUTO) 6.9 K/uL (4.3-11.0)
[2024-07-08 09:04] LABS: CALCIUM, SERUM 9.8 mg/dL (8.5-10.1); CREATININE 1.5 mg/dL (0.6-1.3); POTASSIUM 3.5 mmol/L (3.5-5.1)
[2024-07-09] VITALS (18 sets, daily range): BP systolic 95–120; BP diastolic 63–74; TEMP 97.7–98.6; O2SAT 96–100
[2024-07-09 08:01] LABS: CALCIUM, SERUM 9.4 mg/dL (8.5-10.1); CREATININE 1.3 mg/dL (0.6-1.3); POTASSIUM 3.6 mmol/L (3.5-5.1)
[2024-07-09] MEDS: FREE WATER VIA TUBE FEEDING GT SCH (16:00)
[2024-07-10] VITALS (17 sets, daily range): BP systolic 102–115; BP diastolic 58–71; TEMP 98.1–98.6; O2SAT 96–100
[2024-07-10 15:17] LABS: CALCIUM, SERUM 9.5 mg/dL (8.5-10.1); CREATININE 1.3 mg/dL (0.6-1.3); POTASSIUM 4.1 mmol/L (3.5-5.1)
[2024-07-11] VITALS (14 sets, daily range): BP systolic 109–136; BP diastolic 69–90; TEMP 98–98.4; O2SAT 97–100
[2024-07-11 08:07] LABS: BASOPHILS # (AUTO) 0.1 K/uL (0.0-0.2); BASOPHILS % (AUTO) 0.9 % (0.0-2.0); EOSINOPHILS # (AUTO) 0.6 K/uL (0.0-0.7); HEMATOCRIT 30 % (33-45); HEMOGLOBIN 9.3 g/dL (11.5-14.8); LYMPHOCYTES # (AUTO) 1.5 K/uL (0.8-4.8); LYMPHOCYTES % (AUTO) 16.6 % (20.0-44.0); MEAN CORPUSCULAR HEMOGLOBIN 31 PG (26.0-33.0); MEAN CORPUSCULAR HGB CONC 31 g/dl (31.0-36.0); MEAN CORPUSCULAR VOLUME 99 fL (82-100); MONOCYTES # (AUTO) 0.5 K/uL (0.1-1.30); MONOCYTES % (AUTO) 5.2 % (2.0-12.0); NEUTROPHILS # (AUTO) 6.2 K/uL (1.8-8.9); NEUTROPHILS % (AUTO) 70.3 % (43.0-81.0); PLATELET COUNT (AUTO) 421 K/uL (150-450); RED BLOOD CELL COUNT(AUTO) 2.99 MIL/uL (4.0-5.2); RED CELL DISTRIBUTION WIDTH 18.9 % (11.5-15.0); WHITE BLOOD COUNT (AUTO) 8.8 K/uL (4.3-11.0)
[2024-07-11 08:21] LABS: CALCIUM, SERUM 9.3 mg/dL (8.5-10.1); MAGNESIUM 2.1 mg/dL (1.8-2.4); PHOSPHORUS 3.9 mg/dL (2.5-4.9); POTASSIUM 3.2 mmol/L (3.5-5.1)
[2024-07-11] MEDS: POTASSIUM CHLORIDE 20 MEQ POWDER PACKET NG SCH (10:32)
== END 2024-07-11 14:46 | DRG 720 ==
LOC: ER 11:37 → TELE1 15:05
PROVIDERS: ADMIT Nurse Practitioner Acute Care; ATTEND Nurse Practitioner Family
PROC: 30233N1 Transfusion of Nonautologous Red Blood Cells into Peripheral Vein, Percutaneous Approach (ICD-10-PCS; principal; 2024-06-23)
PROC: 0W9J30Z Drainage of Pelvic Cavity with Drainage Device, Percutaneous Approach (ICD-10-PCS; 2024-07-04)
DX: A40.8 Other streptococcal sepsis (principal); G93.41 Metabolic encephalopathy; R65.20 Severe sepsis without septic shock; E44.0 Moderate protein-calorie malnutrition; R53.2 Functional quadriplegia; N17.9 Acute kidney failure, unspecified; D63.1 Anemia in chronic kidney disease; E88.09 Other disorders of plasma-protein metabolism, not elsewhere classified; I48.91 Unspecified atrial fibrillation; N13.9 Obstructive and reflux uropathy, unspecified; E87.0 Hyperosmolality and hypernatremia; J96.11 Chronic respiratory failure with hypoxia; Z99.11 Dependence on respirator [ventilator] status; Z93.0 Tracheostomy status; I12.9 Hypertensive chronic kidney disease with stage 1 through stage 4 chronic kidney disease, or unspecified chronic kidney disease; N18.9 Chronic kidney disease, unspecified; D75.839 Thrombocytosis, unspecified; E86.0 Dehydration; N73.9 Female pelvic inflammatory disease, unspecified; G40.909 Epilepsy, unspecified, not intractable, without status epilepticus; Z93.1 Gastrostomy status; Z86.73 Personal history of transient ischemic attack (TIA), and cerebral infarction without residual deficits; Z87.440 Personal history of urinary (tract) infections; Z79.51 Long term (current) use of inhaled steroids; Z79.82 Long term (current) use of aspirin; Z79.899 Other long term (current) drug therapy; R13.10 Dysphagia, unspecified; I25.10 Atherosclerotic heart disease of native coronary artery without angina pectoris; E83.52 Hypercalcemia; N13.6 Pyonephrosis; Z74.01 Bed confinement status; R25.2 Cramp and spasm; F09 Unspecified mental disorder due to known physiological condition; N13.70 Vesicoureteral-reflux, unspecified; K59.00 Constipation, unspecified; E86.1 Hypovolemia; E87.6 Hypokalemia; R47.01 Aphasia; Z16.24 Resistance to multiple antibiotics; Z78.1 Physical restraint status
CPT/HCPCS: 31720; 36415; 71045-TC; 75989-TC; 76770-TC; 80048-TC; 80053-TC; 80061-TC; 80076-TC; 80202-TC; 81001; 82272-TC; 82306; 82570-TC; 82607-TC; 82728-TC; 83540-TC; 83605-TC; 83690-TC; 83735-TC; 84100-TC; 84300-TC; 84484-TC; 84703-TC; 85025-TC; 85027-TC; 85610-TC; 85730-TC; 86850; 86850-TC; 86860; 86870; 86880; 86900; 86901; 87040-TC; 87081-TC; 87086-TC; 93307-TC; 94640-TC; 94760-TC; 94761-TC; 94762-TC; 94799-TC; A4223; A4623; A7526; G0378; J0692; J0696; J0885; J1650; J1953; J2185; J2250; J3010; J3370; J3371; J3480; J7030; J7040; J7050; J7060; P9016

== ENCOUNTER 2024-07-31 08:39 | Inpatient (IN) | payer OTHER ==
[~2024-07-31] VITALS: Ht 167.6 cm; Wt 73.9 kg
[~2024-07-31 08:39] MED LIST changes: +ACET-2030 GT; -ACET-868 GT; +ACET160S GT; -ASCO500L2 GT; -BISA10SU11 RC; -COLL30OI TP; +CRAN3875 GT; -CRAN425C6 GT; +EPOE1VIA7 SQ; -LACT1CAP71 GT; -MERO1VIA23 IV; -MULT9LIQ6 GT; +NEPRO 1.8 GT; +NITR50CA GT; -NUTR250L50 GT; +POTA10CA43 GT
[2024-07-31 09:07] LABS: BASOPHILS # (AUTO) 0.1 K/uL (0.0-0.2); BASOPHILS % (AUTO) 0.3 % (0.0-2.0); EOSINOPHILS # (AUTO) 0.2 K/uL (0.0-0.7); HEMATOCRIT 34 % (33-45); HEMOGLOBIN 10.5 g/dL (11.5-14.8); LYMPHOCYTES # (AUTO) 1.4 K/uL (0.8-4.8); LYMPHOCYTES % (AUTO) 6.5 % (20.0-44.0); MEAN CORPUSCULAR HEMOGLOBIN 30 PG (26.0-33.0); MEAN CORPUSCULAR HGB CONC 31 g/dl (31.0-36.0); MEAN CORPUSCULAR VOLUME 98 fL (82-100); MONOCYTES # (AUTO) 0.8 K/uL (0.1-1.30); MONOCYTES % (AUTO) 3.5 % (2.0-12.0); NEUTROPHILS # (AUTO) 19.7 K/uL (1.8-8.9); NEUTROPHILS % (AUTO) 88.7 % (43.0-81.0); PLATELET COUNT (AUTO) 269 K/uL (150-450); RED BLOOD CELL COUNT(AUTO) 3.47 MIL/uL (4.0-5.2); RED CELL DISTRIBUTION WIDTH 18.6 % (11.5-15.0); WHITE BLOOD COUNT (AUTO) 22.2 K/uL (4.3-11.0)
[2024-07-31] MEDS: IV NS 0.9% 1,000 ML BAG IV ONE (09:15)
[2024-07-31 09:17] LABS: BILIRUBIN,URINE NEGATIVE (NEGATIVE); BLOOD, URINE 2+ Ery/uL (NEGATIVE); COLOR,URINE YELLOW (YELLOW); KETONES,URINE NEGATIVE (NEGATIVE); LEUKOCYTE ESTERASE ,URINE 3+ (NEGATIVE); NITRITE, URINE NEGATIVE (NEGATIVE); PH,URINE 6.5 (5.0-8.0); PROTEIN,URINE 2+ mg/dl (NEGATIVE); UGLUCOSE NEGATIVE (NEGATIVE); UROBILINOGEN,URINE 0.2 EU/dL (0.2)
[2024-07-31 09:18] LABS: CARBON DIOXIDE 32 mmol/L (21-32); CHLORIDE 110 mmol/L (98-107); CREATININE 1.5 mg/dL (0.6-1.3); GLUCOSE 113 mg/dL (74-106); POTASSIUM 3.7 mmol/L (3.5-5.1); SODIUM SERUM 149 mmol/L (136-145)
[2024-07-31 09:19] LABS: UREA NITROGEN, BLOOD 94 mg/dL (7-18)
[2024-07-31 09:20] LABS: APPEARANCE,URINE SLIGHTLY HAZY (CLEAR)
[2024-07-31] MEDS: CEFEPIME 1 GM in IV D5W 50 ML IV ONE (09:20)
[2024-07-31 09:24] LABS: ADD URINE CULTURE YES; BACTERIA,URINE Few /HPF (None Seen); WBC,URINE 51-80 /HPF (0-3)
[2024-07-31 09:25] LABS: ALANINE AMINOTRANSFERASE 13 U/L (12-78); ALBUMIN 2.4 g/dL (3.4-5.0); ALKALINE PHOSPHATASE 65 U/L (46-116); ASPARTATE AMINOTRANSFERASE 19 U/L (15-37); BILIRUBIN,DIRECT 0.1 mg/dL (0.0-0.2); BILIRUBIN,TOTAL 0.3 mg/dL (0.2-1.0); TOTAL PROTEIN, SERUM 9.9 g/dL (6.4-8.2)
[2024-07-31 09:25] LABS: SQUAMOUS EPITHELIAL CELL,UR Few /HPF (None Seen); URINE AMORPHOUS URATE Few /HPF (None Seen)
[2024-07-31 09:26] LABS: INR 0.99 (0.91-1.10); PARTIAL THROMBOPLASTIN TIME 30.1 SEC (24.3-34.3); PROTHROMBIN TIME 10.5 SECS (9.2-11.1)
[2024-07-31] MEDS: ACETAMINOPHEN 160 MG/5 ML PEG STA (09:30)
[2024-07-31] MEDS ORDERED: ACETAMINOPHEN ES 500 MG TABLET ONE (09:31)
[2024-07-31 09:34] LABS: LACTIC ACID 1.2 mmol/L (0.4-2.0)
[2024-07-31 09:38] LABS: EOSINOPHILS % (MANUAL) 1 % (0-4); LYMPHOCYTES % (MANUAL) 7 % (16-48); MONOCYTES % (MANUAL) 2 % (0-11.0); NEUTROPHILS % (MANUAL) 91 (42-76); PLATELET ESTIMATE ADEQUATE
[2024-07-31] MEDS ORDERED: BISA10SU11 RC (09:47)
[2024-07-31] MEDS ORDERED: TRIA80CR12 TP (09:47)
[2024-07-31] MEDS ORDERED: ONDANSETRON HCL/PF 4 MG/2 ML VIAL IVP PRN (10:00)
[2024-07-31] MEDS ORDERED: ACETAMINOPHEN 650 MG/SUPP.RECT RC PRN (10:00)
[2024-07-31] MEDS: VANCOMYCIN 1 GM in IV D5W 250 ML IV ONE (10:00)
[2024-07-31] MEDS ORDERED: IV NS 0.9% 1,000 ML IV PRN (10:00)
[2024-07-31] MEDS ORDERED: IPRATROPIUM NEB FS 0.5 MG/2.5 ML AMPUL.NEB NEB PRN (10:30)
[2024-07-31] MEDS ORDERED: ALBUTEROL FS 2.5 MG/3 ML VIAL.NEB NEB PRN (10:30)
[2024-07-31 11:53] VITALS: O2SAT 97
[2024-07-31] MEDS: IV 1/2NS 1000 ML 1,000 ML IV SCH (13:26)
[2024-07-31] MEDS: VANCOMYCIN 500 MG in IV D5W 100 ML IV ONE (13:26)
[2024-07-31 14:56] VITALS: O2SAT 96
[2024-07-31 15:39] LABS: CREATININE, URINE 31.7 MG/DL (30.0-125.0); PREGNANCY TEST URINE QUAL NEGATIVE (NEGATIVE); URINE TOTAL PROTEIN 353.9 mg/dL (0-11.9)
[2024-07-31] MEDS: NEPRO 1,000 ML BOTTLE GT PRN (17:54)
[2024-07-31] MEDS: ACETAMINOPHEN 650 MG/20.3 ML UDC GT PRN (17:55)
[2024-07-31 20:00] VITALS: O2SAT 98
[2024-07-31 20:05] VITALS: O2SAT 97
[2024-07-31] MEDS: CEFEPIME 2 GM in IV D5W 100 ML IV SCH (20:14)
[2024-07-31] MEDS: HYDROCODONE/APAP 5/325MG TABLET GT PRN (20:17)
[2024-07-31] MEDS ORDERED: CEFEPIME 1 GM in IV D5W 50 ML IV SCH (21:00)
[2024-07-31 23:57] VITALS: O2SAT 97
[2024-08-01] VITALS (12 sets, daily range): BP systolic 105–119; BP diastolic 70–83; TEMP 97.9–100.1; O2SAT 94–98
[2024-08-01] MEDS: DAKINS QUARTER STRENGTH (0.125%) 480 ML BOTTLE TOP SCH (09:59)
[2024-08-01] MEDS: VANCOMYCIN HCL 1.25 GM in IV D5W 250 ML IV SCH (11:08)
[2024-08-01 12:36] LABS: BASOPHILS # (AUTO) 0.1 K/uL (0.0-0.2); BASOPHILS % (AUTO) 0.7 % (0.0-2.0); EOSINOPHILS # (AUTO) 0.7 K/uL (0.0-0.7); EOSINOPHILS % (AUTO) 5.9 % (0.0-6.0); HEMATOCRIT 27 % (33-45); HEMOGLOBIN 8.6 g/dL (11.5-14.8); LYMPHOCYTES # (AUTO) 0.7 K/uL (0.8-4.8); MEAN CORPUSCULAR HEMOGLOBIN 32 PG (26.0-33.0); MEAN CORPUSCULAR HGB CONC 32 g/dl (31.0-36.0); MEAN CORPUSCULAR VOLUME 99 fL (82-100); MONOCYTES # (AUTO) 0.3 K/uL (0.1-1.30); MONOCYTES % (AUTO) 3.2 % (2.0-12.0); NEUTROPHILS # (AUTO) 9.2 K/uL (1.8-8.9); NEUTROPHILS % (AUTO) 84.2 % (43.0-81.0); PLATELET COUNT (AUTO) 189 K/uL (150-450); RED BLOOD CELL COUNT(AUTO) 2.71 MIL/uL (4.0-5.2); RED CELL DISTRIBUTION WIDTH 18.3 % (11.5-15.0)
[2024-08-01 12:37] LABS: ALBUMIN 2.1 g/dL (3.4-5.0); BILIRUBIN,TOTAL 0.4 mg/dL (0.2-1.0); CALCIUM, SERUM 9.2 mg/dL (8.5-10.1); CREATININE 1.2 mg/dL (0.6-1.3); MAGNESIUM 2.8 mg/dL (1.8-2.4); PHOSPHORUS 2.3 mg/dL (2.5-4.9); POTASSIUM 3.1 mmol/L (3.5-5.1); TOTAL PROTEIN, SERUM 8.4 g/dL (6.4-8.2)
[2024-08-01] MEDS: NEUTRA PHOS 1 POWD.PACKET GT ONE (15:54)
[2024-08-01] MEDS: POTASSIUM CHLORIDE 20 MEQ POWDER PACKET GT ONE (15:55)
[2024-08-02] VITALS (9 sets, daily range): BP systolic 97–126; BP diastolic 45–75; TEMP 98.2–100.5; O2SAT 95–98
[2024-08-02] MEDS: NEPRO 1,000 ML BOTTLE GT PRN (08:04)
[2024-08-02 08:09] LABS: PTH, INTACT 8 pg/mL (15-65)
[2024-08-02] MEDS: ENOXAPARIN SODIUM 40 MG/0.4 ML DISP.SYRIN SQ SCH (08:36)
[2024-08-02 12:34] LABS: CALCIUM, SERUM 8.8 mg/dL (8.5-10.1); CREATININE 1.1 mg/dL (0.6-1.3); POTASSIUM 3.7 mmol/L (3.5-5.1)
[2024-08-02] MEDS: NEUTRA PHOS 1 POWD.PACKET GT ONE (15:31)
[2024-08-03] VITALS (12 sets, daily range): BP systolic 106–119; BP diastolic 64–77; TEMP 98.2–99.1; O2SAT 93–100
[2024-08-03 09:03] LABS: CALCIUM, SERUM 8.8 mg/dL (8.5-10.1); POTASSIUM 3.8 mmol/L (3.5-5.1)
[2024-08-03] MEDS: VANCOMYCIN 1 GM in IV D5W 250 ML IV SCH (11:06)
[2024-08-03] MEDS ORDERED: NA PHOS,M-B/NA PHOS,DI-BA 1 EA ENEMA RC PRN (11:30)
[2024-08-03] MEDS ORDERED: BISACODYL SUPP (10 MG) 10 MG/SUPP.RECT SUPP.RECT RC PRN (11:30)
[2024-08-03] MEDS ORDERED: HOME MED MISCELLANEOUS XX SCH (11:30)
[2024-08-03] MEDS ORDERED: ACETAMINOPHEN 160 MG/5 ML GT PRN (11:30)
[2024-08-03] MEDS ORDERED: HYDROCODONE/APAP 5/325MG TABLET GT PRN (11:30)
[2024-08-03] MEDS: POLYETHYLENE GLYCOL 3350 17 GM POWD.PACK GT SCH (11:44)
[2024-08-03] MEDS: ASPIRIN 81 MG TAB.CHEW GT SCH (11:44)
[2024-08-03] MEDS: BACLOFEN (10 MG) 10 MG TABLET GT SCH (11:44)
[2024-08-03] MEDS: PANTOPRAZOLE 40 MG/PACK PACK GT SCH (11:45)
[2024-08-03] MEDS: METOPROLOL TARTRATE 25 MG TABLET GT SCH (11:45)
[2024-08-03] MEDS: LEVETIRACETAM SOL (5 ML) 100 MG/ML UDC GT SCH (11:45)
[2024-08-03] MEDS ORDERED: LACTULOSE 10 G/15 ML UDC (PYXIS) GT ONE (12:00)
[2024-08-03] MEDS: VALPROIC ACID 250 MG/5 ML UDC GT SCH (12:52)
[2024-08-03] MEDS: FOLIC ACID 1 MG TABLET GT SCH (12:53)
[2024-08-03] MEDS: EPOETIN ALFA (10,000 UNIT) 10,000 UNIT/ML VIAL SQ SCH (12:55)
[2024-08-03] MEDS: LACTULOSE 10 G/15 ML UDC (PYXIS) GT ONE (12:56)
[2024-08-03] MEDS: FERROUS SULFATE UDC 300 MG/5 ML UDC GT SCH (17:11)
[2024-08-03] MEDS: IV 1/2NS 1000 ML 1,000 ML IV PRN (18:21)
[2024-08-03] MEDS: CEFEPIME 2 GM in IV D5W 100 ML IV SCH (19:53)
[2024-08-04] VITALS (11 sets, daily range): BP systolic 100–111; BP diastolic 62–77; TEMP 97.5–99; O2SAT 95–100
[2024-08-04 07:36] LABS: CALCIUM, SERUM 8.9 mg/dL (8.5-10.1); POTASSIUM 3.2 mmol/L (3.5-5.1)
[2024-08-04] MEDS: TRIAMCINOLONE ACETONIDE 0.1% CR 15 GM TUBE TP SCH (08:26)
[2024-08-04] MEDS: POTASSIUM CHLORIDE 20 MEQ POWDER PACKET NG SCH (09:44)
[2024-08-05] VITALS (11 sets, daily range): BP systolic 92–157; BP diastolic 56–90; TEMP 97.7–98.4; O2SAT 98–100
[2024-08-05 06:44] LABS: CALCIUM, SERUM 9.2 mg/dL (8.5-10.1); POTASSIUM 3.6 mmol/L (3.5-5.1)
[2024-08-05] MEDS ORDERED: DIATR MEGLU/DIATRIZOATE SODIUM 30 ML BOTTLE (GASTROGRAPHIN) ONE (12:22)
[2024-08-05] MEDS ORDERED: IOHEXOL-300 100 ML VIAL IV ONE (17:40)
[2024-08-05] MEDS ORDERED: CT SWABBABLE VALVE TRANS SET 1 EA INFUS.SET MC ONE (17:40)
[2024-08-06] VITALS (12 sets, daily range): BP systolic 92–115; BP diastolic 52–72; TEMP 97–98.4; O2SAT 96–100
[2024-08-06 14:11] LABS: *SPE A/G RATIO 0.5 (0.7-1.7); *SPE ALBUMIN 2.4 g/dL (2.9-4.4); *SPE ALPHA-1-GLOBULIN 0.4 g/dL (0.0-0.4); *SPE ALPHA-2-GLOBULIN 1.2 g/dL (0.4-1.0); *SPE GLOBULIN, TOTAL 5.2 g/dL (2.2-3.9); *SPE M-SPIKE Not Observed g/dL (Not Observed); *SPE PROTEIN TOTAL 7.6 g/dL (6.0-8.5); *SPEGAMMA GLOBULIN 2.6 g/dL (0.4-1.8)
[2024-08-06] MEDS ORDERED: DIATR MEGLU/DIATRIZOATE SODIUM 120 ML BOTTLE (GASTROGRAPHIN) ONE (15:00)
[2024-08-06 15:27] LABS: BASOPHILS # (AUTO) 0.1 K/uL (0.0-0.2); EOSINOPHILS # (AUTO) 0.6 K/uL (0.0-0.7); EOSINOPHILS % (AUTO) 10.1 % (0.0-6.0); HEMATOCRIT 24 % (33-45); HEMOGLOBIN 7.9 g/dL (11.5-14.8); LYMPHOCYTES # (AUTO) 1.8 K/uL (0.8-4.8); MEAN CORPUSCULAR HEMOGLOBIN 31 PG (26.0-33.0); MEAN CORPUSCULAR HGB CONC 33 g/dl (31.0-36.0); MEAN CORPUSCULAR VOLUME 96 fL (82-100); MONOCYTES # (AUTO) 0.4 K/uL (0.1-1.30); MONOCYTES % (AUTO) 7.1 % (2.0-12.0); NEUTROPHILS # (AUTO) 2.8 K/uL (1.8-8.9); NEUTROPHILS % (AUTO) 49.8 % (43.0-81.0); PLATELET COUNT (AUTO) 272 K/uL (150-450); RED BLOOD CELL COUNT(AUTO) 2.54 MIL/uL (4.0-5.2); RED CELL DISTRIBUTION WIDTH 17.3 % (11.5-15.0); WHITE BLOOD COUNT (AUTO) 5.6 K/uL (4.3-11.0)
[2024-08-06 15:40] LABS: INR 1.03 (0.91-1.10); PARTIAL THROMBOPLASTIN TIME 33.3 SEC (24.3-34.3); PROTHROMBIN TIME 10.9 SECS (9.2-11.1)
[2024-08-07] VITALS (12 sets, daily range): BP systolic 102–132; BP diastolic 67–83; TEMP 97.7–98.9; O2SAT 93–100
[2024-08-07 12:12] LABS: BASOPHILS % (AUTO) 0.7 % (0.0-2.0); EOSINOPHILS # (AUTO) 0.5 K/uL (0.0-0.7); EOSINOPHILS % (AUTO) 8.3 % (0.0-6.0); HEMATOCRIT 24 % (33-45); HEMOGLOBIN 8.2 g/dL (11.5-14.8); LYMPHOCYTES # (AUTO) 1.5 K/uL (0.8-4.8); LYMPHOCYTES % (AUTO) 22.3 % (20.0-44.0); MEAN CORPUSCULAR HEMOGLOBIN 32 PG (26.0-33.0); MEAN CORPUSCULAR HGB CONC 34 g/dl (31.0-36.0); MEAN CORPUSCULAR VOLUME 96 fL (82-100); MONOCYTES # (AUTO) 0.4 K/uL (0.1-1.30); MONOCYTES % (AUTO) 6.5 % (2.0-12.0); NEUTROPHILS # (AUTO) 4.1 K/uL (1.8-8.9); NEUTROPHILS % (AUTO) 62.2 % (43.0-81.0); PLATELET COUNT (AUTO) 304 K/uL (150-450); RED BLOOD CELL COUNT(AUTO) 2.54 MIL/uL (4.0-5.2); RED CELL DISTRIBUTION WIDTH 17.2 % (11.5-15.0); WHITE BLOOD COUNT (AUTO) 6.6 K/uL (4.3-11.0)
[2024-08-07 12:17] LABS: CALCIUM, SERUM 9.7 mg/dL (8.5-10.1); CREATININE 1.1 mg/dL (0.6-1.3); POTASSIUM 3.3 mmol/L (3.5-5.1)
[2024-08-07] MEDS: POTASSIUM CHLORIDE 20 MEQ POWDER PACKET GT SCH (16:50)
[2024-08-08] VITALS (12 sets, daily range): BP systolic 97–111; BP diastolic 66–72; TEMP 97.9–99; O2SAT 93–100
[2024-08-08 06:15] LABS: BASOPHILS % (AUTO) 0.7 % (0.0-2.0); EOSINOPHILS # (AUTO) 0.6 K/uL (0.0-0.7); EOSINOPHILS % (AUTO) 8.9 % (0.0-6.0); HEMATOCRIT 25 % (33-45); HEMOGLOBIN 8.3 g/dL (11.5-14.8); LYMPHOCYTES # (AUTO) 1.4 K/uL (0.8-4.8); LYMPHOCYTES % (AUTO) 21.3 % (20.0-44.0); MEAN CORPUSCULAR HEMOGLOBIN 32 PG (26.0-33.0); MEAN CORPUSCULAR HGB CONC 34 g/dl (31.0-36.0); MEAN CORPUSCULAR VOLUME 96 fL (82-100); MONOCYTES # (AUTO) 0.6 K/uL (0.1-1.30); MONOCYTES % (AUTO) 8.9 % (2.0-12.0); NEUTROPHILS # (AUTO) 4.1 K/uL (1.8-8.9); NEUTROPHILS % (AUTO) 60.2 % (43.0-81.0); PLATELET COUNT (AUTO) 308 K/uL (150-450); RED BLOOD CELL COUNT(AUTO) 2.56 MIL/uL (4.0-5.2); RED CELL DISTRIBUTION WIDTH 17.1 % (11.5-15.0); WHITE BLOOD COUNT (AUTO) 6.8 K/uL (4.3-11.0)
[2024-08-08 06:31] LABS: CALCIUM, SERUM 9.8 mg/dL (8.5-10.1); CREATININE 1.1 mg/dL (0.6-1.3); MAGNESIUM 2.2 mg/dL (1.8-2.4); PHOSPHORUS 2.8 mg/dL (2.5-4.9); POTASSIUM 3.2 mmol/L (3.5-5.1)
[2024-08-08] MEDS: POTASSIUM CHLORIDE 20 MEQ POWDER PACKET GT ONE (09:34)
[2024-08-08] MEDS ORDERED: LIDOCAINE 1% INJ 50 ML MDV IJ ONE (15:46)
[2024-08-08] MEDS ORDERED: MIDAZOLAM HCL 5 MG/5ML VIAL IV STA (16:10)
[2024-08-08] MEDS ORDERED: NALOXONE PREFILLED SYRINGE 2 MG/2 ML SYRINGE IV PRN (16:30)
[2024-08-08] MEDS ORDERED: FENTANYL PF 250MCG/5ML AMPUL IV PRN (16:30)
[2024-08-08] MEDS ORDERED: FENTANYL PF 100MCG/2ML AMPUL IV PRN (16:30)
[2024-08-08] MEDS ORDERED: NALOXONE HCL 0.4 MG/ML AMPUL IV PRN (16:30)
[2024-08-08] MEDS ORDERED: FLUMAZENIL 0.5 MG VIAL IV PRN (16:30)
[2024-08-08] MEDS: MIDAZOLAM HCL 2 MG/2ML VIAL IV PRN (17:00)
[2024-08-09] VITALS (11 sets, daily range): BP systolic 94–111; BP diastolic 55–69; TEMP 97.4–98.6; O2SAT 96–100
[2024-08-09] MEDS: SENNOSIDES/DOCUSATE SODIUM 1 TAB TABLET GT PRN (10:28)
[2024-08-09] MEDS: Z GUARD REMEDY 4 OZ OINT TP PRN (10:28)
[2024-08-10] VITALS (12 sets, daily range): BP systolic 98–125; BP diastolic 53–81; TEMP 97.5–98.5; O2SAT 95–100
[2024-08-10 11:26] LABS: BASOPHILS # (AUTO) 0.1 K/uL (0.0-0.2); BASOPHILS % (AUTO) 0.8 % (0.0-2.0); EOSINOPHILS # (AUTO) 0.7 K/uL (0.0-0.7); EOSINOPHILS % (AUTO) 9.9 % (0.0-6.0); HEMATOCRIT 25 % (33-45); HEMOGLOBIN 8.3 g/dL (11.5-14.8); LYMPHOCYTES # (AUTO) 1.6 K/uL (0.8-4.8); LYMPHOCYTES % (AUTO) 21.7 % (20.0-44.0); MEAN CORPUSCULAR HEMOGLOBIN 32 PG (26.0-33.0); MEAN CORPUSCULAR HGB CONC 33 g/dl (31.0-36.0); MEAN CORPUSCULAR VOLUME 98 fL (82-100); MONOCYTES # (AUTO) 0.6 K/uL (0.1-1.30); MONOCYTES % (AUTO) 8.1 % (2.0-12.0); NEUTROPHILS # (AUTO) 4.3 K/uL (1.8-8.9); NEUTROPHILS % (AUTO) 59.5 % (43.0-81.0); PLATELET COUNT (AUTO) 350 K/uL (150-450); RED BLOOD CELL COUNT(AUTO) 2.57 MIL/uL (4.0-5.2); RED CELL DISTRIBUTION WIDTH 17.3 % (11.5-15.0); WHITE BLOOD COUNT (AUTO) 7.3 K/uL (4.3-11.0)
[2024-08-10 11:46] LABS: CALCIUM, SERUM 10.9 mg/dL (8.5-10.1); CREATININE 1.2 mg/dL (0.6-1.3); POTASSIUM 3.3 mmol/L (3.5-5.1)
[2024-08-10] MEDS: POTASSIUM CHLORIDE 20 MEQ POWDER PACKET GT ONE (12:35)
[2024-08-10] MEDS: EPOETIN ALFA (10,000 UNIT) 10,000 UNIT/ML VIAL SQ SCH (14:57)
[2024-08-11] VITALS (12 sets, daily range): BP systolic 99–134; BP diastolic 59–76; TEMP 97.9–99; O2SAT 96–100
[2024-08-11 20:51] LABS: BASOPHILS # (AUTO) 0.1 K/uL (0.0-0.2); BASOPHILS % (AUTO) 1.1 % (0.0-2.0); EOSINOPHILS # (AUTO) 0.7 K/uL (0.0-0.7); EOSINOPHILS % (AUTO) 8.7 % (0.0-6.0); HEMATOCRIT 28 % (33-45); HEMOGLOBIN 9.5 g/dL (11.5-14.8); LYMPHOCYTES # (AUTO) 1.8 K/uL (0.8-4.8); LYMPHOCYTES % (AUTO) 24.2 % (20.0-44.0); MEAN CORPUSCULAR HEMOGLOBIN 33 PG (26.0-33.0); MEAN CORPUSCULAR HGB CONC 34 g/dl (31.0-36.0); MEAN CORPUSCULAR VOLUME 97 fL (82-100); MONOCYTES # (AUTO) 0.7 K/uL (0.1-1.30); MONOCYTES % (AUTO) 9.1 % (2.0-12.0); NEUTROPHILS # (AUTO) 4.4 K/uL (1.8-8.9); NEUTROPHILS % (AUTO) 56.9 % (43.0-81.0); PLATELET COUNT (AUTO) 358 K/uL (150-450); RED BLOOD CELL COUNT(AUTO) 2.92 MIL/uL (4.0-5.2); RED CELL DISTRIBUTION WIDTH 17.5 % (11.5-15.0); WHITE BLOOD COUNT (AUTO) 7.6 K/uL (4.3-11.0)
[2024-08-11 21:35] LABS: CALCIUM, SERUM 11.6 mg/dL (8.5-10.1); CREATININE 1.3 mg/dL (0.6-1.3); MAGNESIUM 2.1 mg/dL (1.8-2.4); POTASSIUM 3.8 mmol/L (3.5-5.1)
[2024-08-11 22:00] LABS: BAND % (MANUAL) 3 % (0.0-5.0); EOSINOPHILS % (MANUAL) 8 % (0-4); LYMPHOCYTES % (MANUAL) 21 % (16-48); MONOCYTES % (MANUAL) 1 % (0-11.0); MYELOCYTES % 1 % (0-0); NEUTROPHILS % (MANUAL) 66 (42-76)
[2024-08-11 22:01] LABS: ANISOCYTOSIS 1+; PLATELET ESTIMATE ADEQUATE; STOMATOCYTES 1+
[2024-08-12] VITALS (7 sets, daily range): BP systolic 104–115; BP diastolic 74–86; TEMP 97.9–98.1; O2SAT 97–99
== END 2024-08-12 15:05 | DRG 710 ==
LOC: ER 08:45 → MEDSG1 10:56 → TELE1 12:42
PROVIDERS: ADMIT Nurse Practitioner Acute Care; ATTEND Nurse Practitioner Acute Care
PROC: 0KBP0ZZ Excision of Left Hip Muscle, Open Approach (ICD-10-PCS; principal; 2024-08-02)
PROC: 0KBN0ZZ Excision of Right Hip Muscle, Open Approach (ICD-10-PCS; 2024-08-02)
PROC: 0KBP0ZZ Excision of Left Hip Muscle, Open Approach (ICD-10-PCS; 2024-08-07)
PROC: 0KBN0ZZ Excision of Right Hip Muscle, Open Approach (ICD-10-PCS; 2024-08-07)
PROC: 0W9J30Z Drainage of Pelvic Cavity with Drainage Device, Percutaneous Approach (ICD-10-PCS; 2024-08-08)
DX: A41.9 Sepsis, unspecified organism (principal); J96.21 Acute and chronic respiratory failure with hypoxia; N17.0 Acute kidney failure with tubular necrosis; K65.1 Peritoneal abscess; G93.40 Encephalopathy, unspecified; L89.154 Pressure ulcer of sacral region, stage 4; E44.0 Moderate protein-calorie malnutrition; R53.2 Functional quadriplegia; J15.9 Unspecified bacterial pneumonia; I12.9 Hypertensive chronic kidney disease with stage 1 through stage 4 chronic kidney disease, or unspecified chronic kidney disease; N18.9 Chronic kidney disease, unspecified; B96.89 Other specified bacterial agents as the cause of diseases classified elsewhere; N13.6 Pyonephrosis; M89.8X9 Other specified disorders of bone, unspecified site; Z86.73 Personal history of transient ischemic attack (TIA), and cerebral infarction without residual deficits; R13.10 Dysphagia, unspecified; Z79.51 Long term (current) use of inhaled steroids; Z79.82 Long term (current) use of aspirin; Z79.899 Other long term (current) drug therapy; N13.9 Obstructive and reflux uropathy, unspecified; N73.9 Female pelvic inflammatory disease, unspecified; K59.00 Constipation, unspecified; F09 Unspecified mental disorder due to known physiological condition; E87.0 Hyperosmolality and hypernatremia; E86.0 Dehydration; E86.9 Volume depletion, unspecified; E87.6 Hypokalemia; E88.09 Other disorders of plasma-protein metabolism, not elsewhere classified; G40.909 Epilepsy, unspecified, not intractable, without status epilepticus; Z87.442 Personal history of urinary calculi; I25.10 Atherosclerotic heart disease of native coronary artery without angina pectoris; K21.9 Gastro-esophageal reflux disease without esophagitis; N20.0 Calculus of kidney; Z93.1 Gastrostomy status; D63.8 Anemia in other chronic diseases classified elsewhere; Z86.19 Personal history of other infectious and parasitic diseases
CPT/HCPCS: 31720; 36415; 71045-TC; 75989; 75989-TC; 76770-TC; 80048-TC; 80053-TC; 80076-TC; 80202-TC; 81001; 82550-TC; 82570-TC; 82962-TC; 83605-TC; 83735-TC; 83970; 84100-TC; 84155; 84165; 84300-TC; 84484-TC; 84703-TC; 85025-TC; 85610-TC; 85730-TC; 87040-TC; 87081-TC; 87086-TC; 94640-TC; 94664-TC; 94760-TC; 94762-TC; 94799-TC; A4223; A4623; A6403; A7526; G0378; J0692; J0885; J1650; J1953; J2250; J2310; J3010; J3370; J3490; J7030; J7040; J7042; J7050; J7060; Q9963; Q9967